=== PATIENT | male | born 1945 | race Caucasian/White ===

== ENCOUNTER 2021-01-04 13:56 | Inpatient (IN) | payer MEDICARE, SELFPAY ==
[2021-01-04] VITALS (29 sets, daily range): BP systolic 101–187; BP diastolic 58–97; PULSE 73–118; RESP 11–61; TEMP 37.4–37.7; O2SAT 52–100; BMI 35.5; BMI 35.9
[2021-01-04] MEDS: Etomidate 20 MG/10 ML Vial 30 MG IV (14:14)
[2021-01-04] MEDS: 0.9% Normal Saline 1,000 ML 125 ML IV (14:14)
--- NOTE | 2021-01-04 14:23 | EKG12_ITS ---
Test Reason : SOB Blood Pressure : / mmHG Vent. Rate : 119 BPM Atrial Rate : 119 BPM P-R Int : 162 ms QRS Dur : 088 ms QT Int : 312 ms P-R-T Axes : 047 -12 067 degrees QTc Int : 438 ms Sinus tachycardia Otherwise normal ECG Confirmed by SIDNEY SHANNON, HASEEB ([id number]), lead systems engineer STUART CASTILLO ([id number]) on 01/08/2021 10:48:11 AM Referred By: KAREN Confirmed By:HASEEB LITTLE MD
--- NOTE | 2021-01-04 14:26 | ED.DCSUM_ITS ---
History of Present Illness Chief Complaint: Shortness of Breath Informant: Patient, Family Narrative: 75-year-old male presenting with acute respiratory distress. Patient was reportedly exposed to Covid on 24 December. Over the past several days he has had shortness of breath but today is significantly worse. He denies any other symptoms including fever diarrhea vomiting etc. Family notes a history of diabetes and hypercholesterolemia. Family tells me he takes Metformin and a statin. No known lung conditions though he is a former smoker. Patient was noted to have oxygen saturations in the 50 during triage. Past Medical History - Allergies and Home Meds Allergies/Adverse Reactions: Allergies No Known Allergies Allergy (Verified 01/04/21 14:00) Primary Care Physician: Lisandro Ashley MD [Primary Care Provider] - Past Medical History: - - Diabetes hypercholesterolemia chronic bronchitis Surgical History: - - Colonoscopy Smoking Status: Former smoker Drugs: None Review of Systems General: Denies: Chills, Fever, Sweats Eyes: Denies: Visual changes - bilaterally, Diplopia ENT: Denies: Rhinorrhea, Sore throat Cardiovascular: Denies: Chest pain, Palpitations Respiratory: Reports: Dyspnea, Cough. Denies: Dyspnea on exertion Gastrointestinal: Denies: Abdominal pain, Nausea, Vomiting, Diarrhea, Melena, Hematochezia Genitourinary: Denies: Dysuria, Hematuria, Frequency Musculoskeletal: Denies: Back pain, Extremity Pain Skin: Denies: Rash, Wounds Neurological: Denies: Headache, Weakness, Numbness Physical Exam Vital Signs/Narrative: Vital Signs Temp Pulse Resp BP Pulse Ox 01/04/21 14:02 81 01/04/21 14:01 187/97 H 01/04/21 13:57 99.3 F H 108 H 61 H 52 Inital Vital Signs reviewed: Yes General: Well nourished, Well developed, Obese, Acute Distress - Cute respiratory failure Head: Normocephalic, Atraumatic Eyes: Perrl, EOMI ENT: Moist mucous membranes, No rhinorrhea Neck: Supple, Nontender Cardiovascular: Regular rate, Regular rhythm, No murmurs Respiratory: CTA bilaterally, Chest nontender, Retractions Abdomen: Soft, Nontender, Nondistended, Normal bowel sounds Back: Nontender, Normal Inspection Extremities: Nontender, No edema Skin: Normal color, No rash Neurological: Alert, Oriented x3, Cranial nerves II-XII grossly intact, Normal Strength, Normal Sensation Diagnostic/Tx/Re-eval Clinical Impression(s) from Imaging Studies Chest X-Ray 01/04/21 14:45 IMPRESSION: Bilateral diffuse pulmonary infiltrates worse in the mid and lower lung regions. The tip of the endotracheal tube is at 6.3 cm proximal to the darrick. The tip of the enteric tube is in the body of the stomach. Electronically Signed: Dustin Antonio MD at 15:06 EST , Service support , Chest CTA 01/04/21 14:58 IMPRESSION: COPD and ASHD with superimposed pulmonary edema and bilateral effusions. Cannot definitively exclude coexisting Covid 19 pneumonia Limited visualization of the distal subsegmental vessels without definitive evidence for pulmonary emboli If strong clinical suspicion for pulmonary embolus DOPPLER scan of the deep venous system of lower extremities recommended Electronically Signed: Pelon Yip MD at 16:29 EST , Service support , Laboratory Last Values WBC 7.1 K/mm3 (4.4-11.0) 01/04/21 14:05 RBC 5.28 M/mm3 (4.6-6.2) 01/04/21 14:05 Hgb 16.1 g/dL (13.0-16.5) 01/04/21 14:05 Hct 49.3 % (40-54) 01/04/21 14:05 MCV 93.4 fL (80-94) 01/04/21 14:05 MCH 30.5 pg (27.0-32.0) 01/04/21 14:05 MCHC 32.7 g/dL (32-36) 01/04/21 14:05 RDW Std Deviation 50.5 fl (35.1-43.9) H 01/04/21 14:05 RDW Coeff of Paul 14.6 % (11.6-14.6) 01/04/21 14:05 Plt Count 193 K/mm3 (150-450) 01/04/21 14:05 MPV 9.8 fl (6.2-12.0) 01/04/21 14:05 Immature Gran % (Auto) 1.400 % (0.0-0.9) H 01/04/21 14:05 Neut % (Auto) 81.8 % (47-70) H 01/04/21 14:05 Lymph % (Auto) 8.0 % (19-41) L 01/04/21 14:05 Tyrrell % (Auto) 8.4 % (0-10) 01/04/21 14:05 Eos % (Auto) 0.0 % (0-5) 01/04/21 14:05 Baso % (Auto) 0.4 % (0-1) 01/04/21 14:05 Absolute Neuts (auto) 5.8 X10^3/uL (2.0-7.7) 01/04/21 14:05 Absolute Lymphs (auto) 0.57 X10^3/uL (0.83-4.51) L 01/04/21 14:05 Nucleated RBC % 0 % (0-5) 01/04/21 14:05 Differential Comment SCANNED 01/04/21 14:05 Fibrinogen 600 mg/dl (203-444) H 01/04/21 14:05 D-Dimer Quant (PE/DVT) 7.90 FEU/ug/m (0.27-0.49) H* 01/04/21 14:05 Specimen Type ART 01/04/21 15:12 Sample Site R Radial 01/04/21 15:12 pH 7.24 (7.35-7.45) L 01/04/21 15:12 Bicarbonate Actual 20.7 mmol/L (22-26) L 01/04/21 15:12 Total CO2 22 mmol/L 01/04/21 15:12 Base Excess -7 mmol/L (-2 to +2) L 01/04/21 15:12 O2 Saturation 94 % (95-99) L 01/04/21 15:12 O2 % 100 01/04/21 15:12 ABG pCO2 48.7 mmHg (35-45) H 01/04/21 15:12 ABG pO2 86 mmHG (75-100) 01/04/21 15:12 Fran Test Positive 01/04/21 15:12 Respiration Rate 14 01/04/21 15:12 O2 Delivery Device Adult Vent 01/04/21 15:12 Vent Mode AC 01/04/21 15:12 Tidal Volume 500 01/04/21 15:12 POC PEEP 8 01/04/21 15:12 Sodium 139 mmol/L (136-145) 01/04/21 14:05 Potassium 3.5 mmol/L (3.5-5.1) 01/04/21 14:05 Chloride 106 mmol/L (98-107) 01/04/21 14:05 Carbon Dioxide 19.0 mmol/L (21.0-32.0) L 01/04/21 14:05 Anion Gap 14 (5-15) 01/04/21 14:05 BUN 23 mg/dL (7-18) H 01/04/21 14:05 Creatinine 1.18 mg/dL (0.70-1.30) 01/04/21 14:05 Estim Creat Clear Calc 55.85 ml/min 01/04/21 14:05 Est GFR (MDRD) Af Amer 77 mL/min (>60) 01/04/21 14:05 Est GFR (MDRD) Non-Af 64 mL/min (>60) 01/04/21 14:05 BUN/Creatinine Ratio 19.5 RATIO (10-20) 01/04/21 14:05 Glucose 220 mg/dL (74-106) H 01/04/21 14:05 Lactic Acid 9.8 mmol/L (0.4-1.9) H* 01/04/21 14:05 Calcium 8.5 mg/dL (8.5-10.1) 01/04/21 14:05 Total Bilirubin 1.20 mg/dL (0.20-1.00) H 01/04/21 14:05 AST 88 U/L (15-37) H 01/04/21 14:05 ALT 44 U/L (16-61) 01/04/21 14:05 Alkaline Phosphatase 134 U/L (45-117) H 01/04/21 14:05 Lactate Dehydrogenase 518 U/L (87-241) H 01/04/21 14:05 Total Creatine Kinase 318 U/L (39-308) H 01/04/21 14:05 Troponin I 0.045 ng/mL (<0.045) 01/04/21 14:05 C-React Prot Ext Range 87.30 mg/L (0.0-3.0) H 01/04/21 14:05 B-Natriuretic Peptide 273.8 pg/mL (0-100) H 01/04/21 14:05 Total Protein 7.2 g/dL (6.4-8.2) 01/04/21 14:05 Albumin 2.9 g/dL (3.2-5.0) L 01/04/21 14:05 Globulin 4.3 g/dL (2.2-4.2) H 01/04/21 14:05 Albumin/Globulin Ratio 0.7 RATIO (0.9-2.4) L 01/04/21 14:05 Procalcitonin 0.23 ng/mL (0.00-0.09) H 01/04/21 14:05 Urine Color Yellow (Yellow) 01/04/21 16:18 Urine Clarity Clear (Clear) 01/04/21 16:18 Urine pH 5.0 (5.0 - 8.0) 01/04/21 16:18 Ur Specific [place] 1.025 (1.002-1.030) 01/04/21 16:18 Urine Protein 100 mg/dl (Negative) H 01/04/21 16:18 Urine Glucose (UA) 100 mg/dl (Normal) H 01/04/21 16:18 Urine Ketones 15 mg/dl (Negative) H 01/04/21 16:18 Urine Occult Blood 250 /ul (Negative) H 01/04/21 16:18 Urine Nitrite Negative (Negative) 01/04/21 16:18 Urine Bilirubin Negative mg/dL (Negative) 01/04/21 16:18 Urine Urobilinogen 1 mg/dl (Normal) H 01/04/21 16:18 Ur Leukocyte Esterase Negative /ul (Negative) 01/04/21 16:18 Urine RBC 0-5 SEEN /hpf (0-5) 01/04/21 16:18 Urine WBC 0 SEEN /hpf (0-5) 01/04/21 16:18 Ur Squamous Epith Cells 0-5 SEEN /hpf (0-5) 01/04/21 16:18 Urine Bacteria 0 SEEN /hpf (None Seen) 01/04/21 16:18 Hyaline Casts 0-5 SEEN /lpf (0-5) 01/04/21 16:18 Urine Mucus 0 SEEN /hpf (<or=2+) 01/04/21 16:18 - EKG Initial EKG Interpretation: Sinus Tachycardia - EKG demonstrates a sinus tachycardia at a rate of 119. No ectopy or ST elevation noted. - Medical Decision Making BiPAP was attempted but the patient's respiratory rate increased from the 40s to the 60s. He stated that he was becoming tired. Decision to intubate him was made. Patient received 30 mg of etomidate 120 mg of succinylcholine. A 8-0 endotracheal tube was placed and secured at 23 cm. This was obtained on the first attempt without any difficulty. Bilateral breath sounds color change with fogging of the tube noted. Patient was initially started on a propofol drip for sedation. Patient has been actually hypertensive while on propofol drip. We did advance the endotracheal tube 2 cm. Patient is Covid positive. No obvious pulmonary embolism seen on the CTA. The patient will be placed on a heparin drip. I will give him Rocephin and azithromycin given the severity of his illness. He also received a dose of Decadron. Fiberglass Technician Dr. Ascencio was contacted who will be seeing the patient in the ICU. Hospitalist Dr. Hernandezs was also notified of the admission. Family updated. - Critical Care Time Critical care time (excluding procedures): 30-74 minutes, Discussing w/Patient &/or Family/Branch Specialist, Discussing w/Consultants, Arranging Admission or Transfer, Performing Direct Patient Care at Bedside ED Disposition - Plan for ED Patient: Disposition: Acute Care Hospital [facility] Diagnosis: Acute hypoxemic respiratory failure, Metabolic acidosis, Airway intubation performed without difficulty, COVID-19, ARDS (adult respiratory distress syndrome) Referrals: Lisandro Ashley MD [Primary Care Provider] -
[2021-01-04] MEDS: Rocuronium Bromide 50 MG/5 ML Vial IV (14:34)
[2021-01-04] MEDS: Propofol 200 MG/20 ML Vial 100 MG IV BOLUS (14:34)
[2021-01-04] MEDS: Propofol 10MG/Ml 1,000 MG/100 ML Bottle 6.7 MG CONT INF (14:34)
[2021-01-04 14:38] LABS: Absolute Lymphocyte Count 0.57 X10^3/uL (0.83-4.51); Absolute Neutrophil Count 5.8 X10^3/uL (2.0-7.7); Basophil# 0.03 X10^3/uL; Basophil% 0.4 % (0-1); Hematocrit 49.3 % (40-54); Hemoglobin 16.1 g/dL (13.0-16.5); Lymphocyte # 0.57 X10^3/ul (4.0); Mean Corp Hgb Conc 32.7 g/dL (32-36); Mean Corpuscular Hgb 30.5 pg (27.0-32.0); Mean Corpuscular Volume 93.4 fL (80-94); Mean Platelet Vol. 9.8 fl (6.2-12.0); Monocyte% 8.4 % (0-10); NRBC Flagged by Analyzer 0 % (0-5); Neutrophil # 5.81 X10^3/uL (2.7-7.7); Neutrophil % 81.8 % (47-70); POSITIVE DIFFERENTIAL YES; Platelet Count 193 K/mm3 (150-450); RBC Distribution Width CV 14.6 % (11.6-14.6); RBC Distribution Width SD 50.5 fl (35.1-43.9); Red Blood Count 5.28 M/mm3 (4.6-6.2); White Blood Count 7.1 K/mm3 (4.4-11.0)
[2021-01-04 14:40] LABS: Differential Indicated SCAN CRITERIA MET
[2021-01-04 14:44] LABS: Fibrinogen 600 mg/dl (203-444)
--- NOTE | 2021-01-04 14:45 | RAD_ITS ---
STUDY: X-RAY CHEST REASON FOR EXAM: Male, 75 years old. Sob, covid exposure, ET placement, intubation. TECHNIQUE: Single AP portable view of the chest. COMPARISON: None. FINDINGS: An endotracheal tube is in situ. The tip is at 6.3 cm proximal to the darrick. An enteric tube is seen with the tip in the body of the stomach. EKG electrodes are seen. Bilateral pulmonary infiltrates worse in both lower lobes and midportion of both lungs. There is no demonstrated pleural abnormality. Normal size heart. Normal mediastinum and odilon. Normal visualized pulmonary arteries. There is atherosclerotic calcification of the aortic arch with tortuosity. There are diffuse degenerative changes of the visualized thoracic spine. Normal visualized ribs, clavicles, and shoulders. There is no demonstrated abnormality of the visualized soft tissue structures of the upper abdomen. RAD/Chest 1 View (Portable) IMPRESSION: Bilateral diffuse pulmonary infiltrates worse in the mid and lower lung regions. The tip of the endotracheal tube is at 6.3 cm proximal to the darrick. The tip of the enteric tube is in the body of the stomach. Electronically Signed: Dustin Antonio MD at 15:06 EST , Service support ,
[2021-01-04 14:53] LABS: ALB/GLOB Ratio 0.7 RATIO (0.9-2.4); AST(SGOT) 88 U/L (15-37); Alanine Aminotransfer ALT/SGPT 44 U/L (16-61); Albumin, Serum 2.9 g/dL (3.2-5.0); Alkaline Phosphatase 134 U/L (45-117); Anion Gap 14 (5-15); BUN 23 mg/dL (7-18); BUN/Creat Ratio 19.5 RATIO (10-20); CPK Total, Creatine Kinase 318 U/L (39-308); Calcium,Total 8.5 mg/dL (8.5-10.1); Chloride 106 mmol/L (98-107); Creatinine, Serum 1.18 mg/dL (0.70-1.30); EST Glomerular Filtration Rate 64 mL/min (>60); Est Glom Filt Rate - Afr Amer 77 mL/min (>60); Estimated Creatinine Clearance 55.85 ml/min; Globulin 4.3 g/dL (2.2-4.2); Glucose 220 mg/dL (74-106); LDH 518 U/L (87-241); Potassium 3.5 mmol/L (3.5-5.1); Protein, Total 7.2 g/dL (6.4-8.2); Sodium Level 139 mmol/L (136-145)
[2021-01-04 14:58] LABS: BNP,B-Type NATRIURETIC PEPTIDE 273.8 pg/mL (0-100)
--- NOTE | 2021-01-04 14:58 | CT_ITS ---
STUDY: CTA CHEST REASON FOR EXAM: Male, 75 years old. Hypoxemia, SOB, covid exposure, patient intubated, former smoker. RADIATION DOSAGE (If Supplied By Facility): CTDIvol = ( 17.62 ) mGy, DLP = ( 709.17 ) mGycm TECHNIQUE: The examination was performed with the intravenous administration of 100mL Isovue 370. Post-processing of the angiographic images was performed, with multiplanar reformation and 3D reconstruction. Individualized dose optimization techniques were used for this CT. COMPARISON: None. FINDINGS: Pulmonary arteries are dilated consistent with pulmonary hypertension.. The central pulmonary arteries, interlobar and proximal to mid subsegmental vessels are fairly well opacified without evidence for central clot. The more distal subsegmental vessels are not well visualized in part due to obscuration by the airspace consolidation in the lower lobes Mild atherosclerotic changes of the aorta without evidence for aneurysm. There is no demonstrated aortic dissection. The heart is enlarged. Subcentimeter mediastinal nodes likely of no significance. Normal hilar regions. Normal visualized trachea and bronchi. The lungs are well expanded. Diffuse interstitial thickening and emphysematous changes are noted.. There are moderate-sized pleural effusions and consolidation of the lower lobes with air bronchograms. Normal chest wall structures. Dorsal spine demonstrates degenerative change. There is mild ascites in the right upper quadrant. Gallbladder has been removed. Nasogastric tube is seen with tip in stomach. CT/CTA Chest W/WO Contrast IMPRESSION: COPD and ASHD with superimposed pulmonary edema and bilateral effusions. Cannot definitively exclude coexisting Covid 19 pneumonia Limited visualization of the distal subsegmental vessels without definitive evidence for pulmonary emboli If strong clinical suspicion for pulmonary embolus DOPPLER scan of the deep venous system of lower extremities recommended Electronically Signed: Pelon Yip MD at 16:29 EST , Service support ,
[2021-01-04 14:59] LABS: Procalcitonin 0.23 ng/mL (0.00-0.09)
[2021-01-04 15:00] LABS: Differential Comment SCANNED
[2021-01-04 15:03] LABS: Lactic Acid 9.8 mmol/L (0.4-1.9)
[2021-01-04 15:21] LABS: Allen Test Positive; Base Excess -7 mmol/L (-2 to +2); Bicarbonate 20.7 mmol/L (22-26); Blood Gas Specimen Type ART; FI02 100; Mode AC; O2 Delivery Device Adult Vent; PEEP 8; PO2 86 mmHG (75-100); RR 14; SITE R Radial; SO2 94 % (95-99); Total Carbon Dioxide 22 mmol/L; Vt 500; pCO2 48.7 mmHg (35-45); pH 7.24 (7.35-7.45)
--- NOTE | 2021-01-04 15:57 | CHAPLAIN ---
Type of Pastoral Visit ___ Initial Visit ___ Follow-up Visit ___ On-call Visit ___ General Patient Visit ___ Spiritual Assessment ___ Family Conference ___ Bereavement ___ Rapid Response ___ Code Blue _x__ Other (describe below) Pastoral Care Referral From ___ Patient _x__ Family _x__ Nurse ___ Physician ___ Brand Attendant ___ Bottle House Pumper ___ Other (describe below) Sacrament/Intervention _x__ Active listening ___ Anointing ___ Yarsani ___ Bereavement ___ Communion ___ Rachana exploration ___ _x__ Life review _x__ Prayer ___ Reconciliation ___ Sacrament of Sick _x__ Supportive presence ___ Wedding ___ Other (describe below) Pastoral Comments during rounds in ED this patient was identified as needing intubation and staff indicated desire of support for spouse; escorted spouse to waiting area where support and conversation continued; assisted spouse with practical needs of water, etc. and became 'eyes' on patient room for time when spouse could return to room; offer of support was followed by request for prayer for patient; once patient and spouse reunited in room, this marketing manager continued with rounds
[2021-01-04] MEDS: dexAMETHasone 10 MG/ML Vial 6 MG IV (16:14)
[2021-01-04 16:35] LABS: Bacteria 0 SEEN /hpf (None Seen); Mucous, Urine 0 SEEN /hpf (<or=2+); White Blood Cells 0 SEEN /hpf (0-5)
[2021-01-04 16:41] LABS: Color, Urine Yellow (Yellow); Glucose, Dipstick 100 mg/dl (Normal); Ketone-Dipstick 15 mg/dl (Negative); Leukocyte Esterase-Dipstick Negative /ul (Negative); Nitrite-Dipstick Negative (Negative); Occult Blood-Urine 250 /ul (Negative); Protein-Dipstick 100 mg/dl (Negative); Specific Gravity, Urine 1.025 (1.002-1.030); Urine Bilirubin Dipstick Negative (Negative); Urine Clarity Clear (Clear); Urine Urobilinogen 1 mg/dl (Normal)
[2021-01-04 16:53] LABS: Hyaline Cast 0-5 SEEN /lpf (0-5); Red Blood Cells-Urine 0-5 SEEN /hpf (0-5); Squamous Epithelial Cells - UA 0-5 SEEN /hpf (0-5)
[2021-01-04] MEDS: Ceftriaxone 1 GM/50 ML BAG IV (17:56)
[2021-01-04 18:24] LABS: Partial Thromboplast Time 31.3 Seconds (24.1-36.2)
[2021-01-04 18:33] LABS: Reflex Lactate? Y
[2021-01-04] MEDS: Propofol 10MG/Ml 1,000 MG/100 ML Bottle 13.7 MG CONT INF ×2 (19:00→22:05)
--- NOTE | 2021-01-04 19:15 | NURSING ---
Came onto shift and when checking drips Fentanyl was at 100mcg/hr and Propofol was at 20mcg/kg/min. Noted that there wasn't a titration done on the JAN that showed when the Fentanyl was increased.
[2021-01-04] MEDS: Chlorhexidine 15 ML PO (20:09)
[2021-01-04] MEDS: Heparin Injection (Vial) 5,000 UNIT/ML VIAL 8000 UNIT IV (20:17)
[2021-01-04] MEDS: HEPARIN/D5w 25,000 UNITS 25,000 UNITS/250 ML IV.SOLN. 15 UNITS IV (20:20)
[2021-01-04 20:29] LABS: International Normalized Ratio 1.2; Prothrombin Time (Protime)PT. 14.2 SECONDS (11.7-14.9)
[2021-01-04 20:48] LABS: Lactic Acid 2.9 mmol/L (0.4-1.9)
--- NOTE | 2021-01-04 20:59 | PCM.HP.STD ---
History of Present Illness Date of Admission: 01/04/21 Chief Complaint: Shortness of breath The patient is a 75 year old M with a PMH as below who presented to the ER with shortness of breath. At the time of my examination he had already been intubated and sedated. Based on chart review and discussion with the ED physician, he is presenting with acute respiratory distress and was exposed to Covid on December 24. He tested positive today for Covid but had symptoms starting around December 26. On presentation to the ED he was found to be tachycardic as well as tachypneic to 61 and had an oxygen saturation of 52% on room air. He was transitioned to BiPAP however was indicating that he was getting tired and therefore the decision was made to intubate and transfer to the ICU. Past Medical History Allergies No Known Allergies Allergy (Verified 01/04/21 14:00) Home Medications: Ambulatory Orders Medication Instructions Recorded Ferrous Sulfate 325 mg PO DAILY 01/04/21 Metformin HCl 500 mg PO BID 01/04/21 Montelukast Sodium [Singulair] 10 mg PO DAILY 01/04/21 Pravastatin Sodium 40 mg PO QHS 01/04/21 Surgical History: - - Colonoscopy Smoking Status: Former smoker Tobacco Use: Cigarettes Alcohol: None Drugs: None - *Family History Paternal History Items: - - Unable to obtain secondary to intubation Review of Systems Unable to obtain accurate/complete ROS d/t: Intubation and sedation VTE Information - Inpt Only VTE Present on Admission: No Patient Problems: Active and Suspected Problems Metabolic acidosis (Acute) Airway intubation performed without difficulty (Acute) COVID-19 (Acute) ARDS (adult respiratory distress syndrome) (Acute) - Physical Exam Vitals/I&O's: Vital Signs Temp Pulse Resp BP Pulse Ox 99.9 F H 87 24 H 105/68 93 01/04/21 20:00 01/04/21 20:00 01/04/21 20:00 01/04/21 20:00 01/04/21 20:00 Oxygen Flow Rate (L/min) 4 Oxygen Delivery Method Mechanical Ventilator Weight: 250 lb 14.177 oz Body Mass Index (BMI) 35.9 Intake and Output for Last 24 Hours 01/02/21 01/03/21 01/04/21 23:59 23:59 23:59 Intake Total 358.30 / 358.30 Output Total 200 / 200 Balance 158.30 / 158.30 General: - - Intubated and sedated HEENT: Atraumatic, PERRLA, Normocephalic Oral: Dry Mucosa Neck: Supple, No JVD Lungs: Normal air movement, No rhonchi, No wheeze, No rales, Diminished Cardiovascular: Regular rate, Regular Rhythm, Normal S1, Normal S2, No murmurs Abdomen: Soft, Non Tender, Non-Distended, No Hepato-splenomegaly Extremities: No edema, Capillary Refill Less than 3 Seconds Skin: No rashes, No breakdown Neurological: - - Intubated and sedated Psych/Mental Status: - - Intubated and sedated Microbiology Past 72 Hours 01/04/21 14:54 Mucosa - Nose SARS-CoV-2 Antigen (Rapid) - Final SARS-CoV-2 (COVID 19) Laboratory Results 01/04/21 14:05: Fibrinogen 600 H, D-Dimer Quant (PE/DVT) 7.90 H* 01/04/21 14:05: Sodium 139, Potassium 3.5, Chloride 106, Carbon Dioxide 19.0 L, Anion Gap 14, BUN 23 H, Creatinine 1.18, Estim Creat Clear Calc 55.85, Est GFR (MDRD) Af Amer 77, Est GFR (MDRD) Non-Af 64, BUN/Creatinine Ratio 19.5, Glucose 220 H, Calcium 8.5, Total Bilirubin 1.20 H, AST 88 H, ALT 44, Alkaline Phosphatase 134 H, Lactate Dehydrogenase 518 H, Total Creatine Kinase 318 H, Troponin I 0.045, C-React Prot Ext Range 87.30 H, Total Protein 7.2, Albumin 2.9 L, Globulin 4.3 H, Albumin/Globulin Ratio 0.7 L 01/04/21 14:05: B-Natriuretic Peptide 273.8 H 01/04/21 14:05: Procalcitonin 0.23 H 01/04/21 14:05: WBC 7.1, RBC 5.28, Hgb 16.1, Hct 49.3, MCV 93.4, MCH 30.5, MCHC 32.7, RDW Std Deviation 50.5 H, RDW Coeff of Paul 14.6, Plt Count 193, MPV 9.8, Immature Gran % (Auto) 1.400 H, Neut % (Auto) 81.8 H, Lymph % (Auto) 8.0 L, [place] % (Auto) 8.4, Eos % (Auto) 0.0, Baso % (Auto) 0.4, Absolute Neuts (auto) 5.8, Absolute Lymphs (auto) 0.57 L, Nucleated RBC % 0, Differential Comment SCANNED 01/04/21 14:05: Lactic Acid 9.8 H* 01/04/21 14:05: APTT 31.3 01/04/21 14:05: Triglycerides Pending 01/04/21 15:12: Specimen Type ART, Sample Site R Radial, pH 7.24 L, Bicarbonate Actual 20.7 L, Total CO2 22, Base Excess -7 L, O2 Saturation 94 L, O2 % 100, ABG pCO2 48.7 H, ABG pO2 86, Fran Test Positive, Respiration Rate 14, O2 Delivery Device Adult Vent, Vent Mode AC, Tidal Volume 500, POC PEEP 8 01/04/21 16:18: Urine Color Yellow, Urine Clarity Clear, Urine pH 5.0, Ur Specific [place] 1.025, Urine Protein 100 H, Urine Glucose (UA) 100 H, Urine Ketones 15 H, Urine Occult Blood 250 H, Urine Nitrite Negative, Urine Bilirubin Negative, Urine Urobilinogen 1 H, Ur Leukocyte Esterase Negative, Urine RBC 0-5 SEEN, Urine WBC 0 SEEN, Ur Squamous Epith Cells 0-5 SEEN, Urine Bacteria 0 SEEN, Hyaline Casts 0-5 SEEN, Urine Mucus 0 SEEN 01/04/21 20:00: Lactic Acid 2.9 H* 01/04/21 20:00: PT 14.2, INR 1.2 Current Medications Acetaminophen (Acetaminophen 325 Mg Tablet) 650 mg PO Q6H PRN PRN PRN Reason: Pain Score 1-10/Temp > 100.7 F Chlorhexidine Gluconate (Chlorhexidine 15 Ml) 15 ml PO BID SIMONE Last Admin: 01/04/21 20:09 Dose: 15 ml Documented by: Chlorhexidine Gluconate (Chlorhexidine Gluc 2% Cloth 1 Each Towelette) 1 each TOPICAL DAILY SIMONE Dexamethasone Sodium Phosphate (Dexamethasone 10 Mg/Ml Vial) 6 mg IV DAILY SIMONE Dextrose (Dextrose 50%-Water 25 Gm/50 Ml Disp.Syrin) 0 gm IV X1 PRN; Protocol PRN Reason: Hypoglycemia Glucagon (Glucagon 1 Mg/Ml Syringe) 1 mg IM .X1 PRN PRN Reason: Hypoglycemia Heparin Sodium (Porcine) (Heparin Injection (Vial) 5,000 Unit/Ml Vial) 0 unit IV UD PRN; Protocol PRN Reason: dose adjustment Fentanyl Citrate 1,000 mcg/ (Sodium Chloride) 100 mls @ 5 mls/hr CONT INF .Q20H SIMONE; Protocol Last Titration: 01/04/21 20:00 Dose: 100 mcg/hr, 10 mls/hr Documented by: Heparin Sodium/Dextrose () 25,000 units in 250 mls @ 15 mls/hr IV .[id number] SIMONE; Protocol Last Admin: 01/04/21 20:20 Dose: 1,500 units/hr, 15 mls/hr Documented by: Remdesivir 200 mg/ Sodium (Chloride) 250 mls @ 125 mls/hr IV X1 ONE Stop: 01/04/21 21:59 Last Admin: 01/04/21 20:24 Dose: 125 mls/hr Documented by: Remdesivir 100 mg/ Sodium (Chloride) 250 mls @ 125 mls/hr IV DAILY@2200 SIMONE Stop: 01/13/21 23:59 Propofol (Diprivan) 1,000 mg in 100 mls @ 6.828 mls/hr CONT INF .Q12H SIMONE; Protocol Last Titration: 01/04/21 20:00 Dose: 20 mcg/kg/min, 13.7 mls/hr Documented by: Insulin Human Lispro (Insulin Lispro 100 Unit/Ml Insuln.Pen) 0 unit SC Q6 SIMONE; Protocol Sodium Chloride (0.9% Saline Lock 10 Ml Syringe) 10 - 40 ml IV UD PRN PRN Reason: SALINE FLUSH Assessment/Plan All Active Problems Acute hypoxemic respiratory failure (Acute) Metabolic acidosis (Acute) Airway intubation performed without difficulty (Acute) COVID-19 (Acute) ARDS (adult respiratory distress syndrome) (Acute) 1. Acute hypoxic respiratory failure secondary to acute COVID-19 pneumonia -We will continue with Decadron and remdesivir -We will closely monitor his LFTs as they are slightly elevated with an AST of 88 and normal ALT, renal function is okay at the moment -Lactic acid is down from 9.8-2.9 -LDH and total creatine kinase are both elevated as a CRP. -He also had an elevated D-dimer to 7.9, CT scan was inconclusive for segmental PEs, therefore given his elevated D-dimer will place on a heparin drip -Discontinue antibiotics he does not have a leukocytosis and he is lymphopenic consistent with Covid 2. DM 2 -He is on Metformin at home, will hold and place him on a sliding scale insulin -Anticipate needing to make adjustment secondary to his Decadron, Accu-Cheks AC at bedtime 3. Morbid obesity/hyperlipidemia -We will consult nutrition to have education once he is extubated -Continue with his pravastatin when able to take p.o. DVT: Heparin drip Inpatient E&M: 06332 Init Hosp L3
[2021-01-04 21:01] LABS: Triglycerides 137 mg/dL
--- NOTE | 2021-01-04 23:07 | RAD_ITS ---
STUDY: X-RAY CHEST REASON FOR EXAM: Male, 75 years old. REPOSITIONED ET TUBE TECHNIQUE: Frontal view COMPARISON: 01/04/2021 at 14:43 hours FINDINGS: Stable endotracheal and nasogastric tubes. The lungs are expanded. Bilateral interstitial prominence and patchy infiltrates similar to previous study. Normal size heart. Normal mediastinum and odilon. Normal visualized pulmonary arteries. Normal visualized aortic arch and descending thoracic aorta. Degenerative changes of the thoracic spine. Normal visualized ribs, clavicles, and shoulders. There is no demonstrated abnormality of the visualized soft tissue structures of the upper abdomen. RAD/Chest 1 View (Portable) IMPRESSION: Bilateral interstitial prominence and patchy infiltrates similar to previous study. Electronically Signed: Jon Gomez DO at 0:06 EST Tel [phone], Service support ,
[2021-01-05] VITALS (32 sets, daily range): BP systolic 102–153; BP diastolic 48–81; PULSE 61–85; RESP 14–32; TEMP 36.9–37.4; O2SAT 88–96; BMI 35.4
[2021-01-05] MEDS: Insulin Lispro 100 UNIT/ML INSULN.PEN SC ×3 (00:49→18:00)
[2021-01-05 01:00] LABS: Bedside Glucose 179 mg/dL (70-110)
[2021-01-05 02:41] LABS: Absolute Neutrophil Count 3.3 X10^3/uL (2.0-7.7); Hematocrit 41.7 % (40-54); Hemoglobin 13.6 g/dL (13.0-16.5); Lymphocyte % 7.9 % (19-41); Mean Corp Hgb Conc 32.6 g/dL (32-36); Mean Corpuscular Hgb 29.9 pg (27.0-32.0); Mean Corpuscular Volume 91.6 fL (80-94); Mean Platelet Vol. 9.8 fl (6.2-12.0); Monocyte% 5.3 % (0-10); NRBC Flagged by Analyzer 0 % (0-5); Neutrophil # 3.25 X10^3/uL (2.7-7.7); POSITIVE DIFFERENTIAL YES; Platelet Count 135 K/mm3 (150-450); RBC Distribution Width CV 14.7 % (11.6-14.6); RBC Distribution Width SD 49.6 fl (35.1-43.9); Red Blood Count 4.55 M/mm3 (4.6-6.2); White Blood Count 3.8 K/mm3 (4.4-11.0)
[2021-01-05 02:43] LABS: Differential Indicated SCAN CRITERIA MET
[2021-01-05 02:58] LABS: ALB/GLOB Ratio 0.7 RATIO (0.9-2.4); AST(SGOT) 55 U/L (15-37); Alanine Aminotransfer ALT/SGPT 32 U/L (16-61); Albumin, Serum 2.3 g/dL (3.2-5.0); Alkaline Phosphatase 90 U/L (45-117); Anion Gap 6 (5-15); BUN 22 mg/dL (7-18); BUN/Creat Ratio 29.5 RATIO (10-20); Calcium,Total 7.9 mg/dL (8.5-10.1); Chloride 111 mmol/L (98-107); Creatinine, Serum 0.75 mg/dL (0.70-1.30); EST Glomerular Filtration Rate 109 mL/min (>60); Est Glom Filt Rate - Afr Amer 131 mL/min (>60); Globulin 3.4 g/dL (2.2-4.2); Glucose 195 mg/dL (74-106); Potassium 4.2 mmol/L (3.5-5.1); Protein, Total 5.7 g/dL (6.4-8.2); Sodium Level 141 mmol/L (136-145)
[2021-01-05 03:00] LABS: Partial Thromboplast Time 221.1 Seconds (24.1-36.2)
[2021-01-05] MEDS: Propofol 10MG/Ml 1,000 MG/100 ML Bottle 6.8 MG CONT INF (05:20)
[2021-01-05 05:35] LABS: Bedside Glucose 160 mg/dL (70-110)
[2021-01-05] MEDS: TITRATION PARAMETER CHANGE 1 EACH IV (05:43)
[2021-01-05] MEDS: Propofol 10MG/Ml 1,000 MG/100 ML Bottle 13.5 MG CONT INF (08:50)
--- NOTE | 2021-01-05 10:02 | CASEMGMT ---
RN CM NOTE: Participated in ICU rounds. Pt is intubated--FIO2 70%. on phone during rounds, tearful, and had many questions, which were answered by the multi-disciplinary team members. Initial RN CM assessment deferred at this time. Du BSN RN CM
--- NOTE | 2021-01-05 10:08 | NT.THERAPY_ITS ---
Nutrition Therapy Report - History Nutrition Services has been consulted to:: Manage enteral nutrition Current diet / nutrition support order:: NPO - Anthropometric Measurements Height:: 5 ft 10.08 in Weight:: 112.3 kg Body Mass Index (BMI):: 35.4 - Relevant Labs Relevant Labs:: WBC 3.8 K/mm3 (4.4-11.0) L 01/05/21 02:30 RBC 4.55 M/mm3 (4.6-6.2) L 01/05/21 02:30 RDW Std Deviation 49.6 fl (35.1-43.9) H 01/05/21 02:30 RDW Coeff of Paul 14.7 % (11.6-14.6) H 01/05/21 02:30 Plt Count 135 K/mm3 (150-450) L 01/05/21 02:30 Immature Gran % (Auto) 1.400 % (0.0-0.9) H 01/04/21 14:05 Neut % (Auto) 86.0 % (47-70) H 01/05/21 02:30 Lymph % (Auto) 7.9 % (19-41) L 01/05/21 02:30 Absolute Lymphs (auto) 0.30 X10^3/uL (0.83-4.51) L 01/05/21 02:30 APTT 221.1 Seconds (24.1-36.2) H* 01/05/21 02:30 Fibrinogen 600 mg/dl (203-444) H 01/04/21 14:05 D-Dimer Quant (PE/DVT) 7.90 FEU/ug/m (0.27-0.49) H* 01/04/21 14:05 Chloride 111 mmol/L (98-107) H 01/05/21 02:30 Carbon Dioxide 19.0 mmol/L (21.0-32.0) L 01/04/21 14:05 BUN 22 mg/dL (7-18) H 01/05/21 02:30 BUN/Creatinine Ratio 29.5 RATIO (10-20) H 01/05/21 02:30 Glucose 195 mg/dL (74-106) H 01/05/21 02:30 Lactic Acid 2.9 mmol/L (0.4-1.9) H* 01/04/21 20:00 Calcium 7.9 mg/dL (8.5-10.1) L 01/05/21 02:30 Total Bilirubin 1.20 mg/dL (0.20-1.00) H 01/04/21 14:05 AST 55 U/L (15-37) H 01/05/21 02:30 Alkaline Phosphatase 134 U/L (45-117) H 01/04/21 14:05 Lactate Dehydrogenase 518 U/L (87-241) H 01/04/21 14:05 Total Creatine Kinase 318 U/L (39-308) H 01/04/21 14:05 C-React Prot Ext Range 87.30 mg/L (0.0-3.0) H 01/04/21 14:05 B-Natriuretic Peptide 273.8 pg/mL (0-100) H 01/04/21 14:05 Total Protein 5.7 g/dL (6.4-8.2) L 01/05/21 02:30 Albumin 2.3 g/dL (3.2-5.0) L 01/05/21 02:30 Globulin 4.3 g/dL (2.2-4.2) H 01/04/21 14:05 Albumin/Globulin Ratio 0.7 RATIO (0.9-2.4) L 01/05/21 02:30 Procalcitonin 0.23 ng/mL (0.00-0.09) H 01/04/21 14:05 - Assessment Food / Nutrition-Related History:: Unknown intake TALENT DEVELOPMENT ANALYST- per H&P, pt reported symptoms started ~10 days ago, so predict suboptimal PO intake TALENT DEVELOPMENT ANALYST. No wt hx available at this time. Per mitali Armenta to initiate enteral nutrition support this date. - Nutrition Diagnosis Problem / Etiology / Signs & Symptoms (PES):: inadequate oral intake related to resp. failure, increased energy needs w/ acute illness as evidenced by NPO status, predicted suboptimal energy intake for 10 days TALENT DEVELOPMENT ANALYST. Evidence of Malnutrition Exists:: No - Nutrition Intervention Nutrition Prescription:: 8198-1916 calories/day (22-25 calories/kg IBW (75kg)). 130-160 g protein/day (2g/kg IBW). 1700mL fluid/day (1mL/calorie) - Food / Nutrient Delivery Interventions Summary of nutrition intervention:: will order enteral nutrition support Nutrition support ordered as / adjusted to:: Vital HP via OGT- goal rate of 70mL/hour w/ 50mL H2O flush every 4 hours to provide 1680 calories, 146 g protei n, and 1704mL total fluid/day. Recommend start at 25mL and increase by 15mL every 8-12 hours as pt tolerates until goal rate is achieved. - MNT Monitoring Further MNT monitoring and evaluation required?: Yes MNT Follow-up in:: 1-2 days
--- NOTE | 2021-01-05 10:15 | PCM.CON.CC ---
Problem List (1) Acute hypoxemic respiratory failure Status: Acute (2) Metabolic acidosis Status: Acute (3) COVID-19 Status: Acute (4) ARDS (adult respiratory distress syndrome) Status: Acute Reason for Consult Date of Consultation: 01/05/21 Reason for Consultation: Respiratory failure History of Present Illness: The patient is a 75 year old M, with past medical history of diabetes, hypercholesterolemia and chronic bronchitis, who presented to [facility] on 01/04/2021 secondary to progressive shortness of breath. Patient reportedly had been exposed to COVID-19 on December 24 and had progressively declined over the course of days. Patient had not had any other constitutional symptoms such as fever, chills, nausea or vomiting reported. Patient does have a history of diabetes, but does not check his blood sugars routinely. Patient is a former smoker, but does not carry a formal diagnosis of COPD. In triage, patient was noted to have saturations in the 50s and a temperature of 99.3 ?F. Patient was tachycardic at 108 bpm and tachypneic at 61 breaths/min. Patient did not respond to home BiPAP rescue chest x-ray and CTA were performed following intubation and showed bilateral infiltrates. Patient did have emphysematous changes noted on CTA of the chest. Peripheral vasculature was difficult to visualize. Laboratory work-up showed a white blood cell count of 7.1, hemoglobin of 16.1 and an elevated D-dimer of 7.9. Initial pH was noted to be 7.24 with a PCO2 of 48 and a P to F ratio of 86 was noted. Laboratory chemistries showed a metabolic acidosis with a creatinine of 1.2, glucose of 220 and elevated BNP at 273. CRP was elevated at 87. The patient was then transferred to the intensive care unit. Overnight, patient has required 70% FiO2 and 10 of PEEP to maintain saturations. Patient has not needed any pressors. Patient has been sedated and is unable to provide any additional information. Did speak with patient's this morning and she did confirm the patient has been a smoker, but is never formally been diagnosed with COPD. Patient does not use inhalers at baseline. Past Medical History Allergies No Known Allergies Allergy (Verified 01/04/21 14:00) Home Medications: Ambulatory Orders Medication Instructions Recorded Ferrous Sulfate 325 mg PO DAILY 01/04/21 Metformin HCl 500 mg PO BID 01/04/21 Montelukast Sodium [Singulair] 10 mg PO DAILY 01/04/21 Pravastatin Sodium 40 mg PO QHS 01/04/21 Surgical History: - - Colonoscopy Smoking Status: Former smoker Tobacco Use: Cigarettes Alcohol: None Drugs: None - *Family History Paternal History Items: - - Unable to obtain secondary to intubation Review of Systems Unable to obtain accurate/complete ROS d/t: Intubated, see HPI Patient Problems: Active and Suspected Problems Metabolic acidosis (Acute) Airway intubation performed without difficulty (Acute) COVID-19 (Acute) ARDS (adult respiratory distress syndrome) (Acute) Objective: All imaging was personally reviewed. Bilateral infiltrates noted on all imaging. Endotracheal tube is slightly high this morning, so it was advanced 1 cm. OG is in good position. Patient does not have any pulmonary function test or echocardiogram available for review - Physical Exam Vitals/I&O's: Vital Signs Temp Pulse Resp BP Pulse Ox 36.9 C 65 17 133/61 H 88 01/05/21 09:00 01/05/21 09:00 01/05/21 09:00 01/05/21 09:00 01/05/21 09:00 Oxygen Flow Rate (L/min) 4 Oxygen Delivery Method Mechanical Ventilator Weight: 112.3 kg Body Mass Index (BMI) 35.4 Intake and Output for Last 24 Hours 01/03/21 01/04/21 01/05/21 23:59 23:59 23:59 Intake Total 679.40 / 703.10 364.07 / 364.07 Output Total 350 / 500 560 / 560 Balance 329.40 / 203.10 -195.93 / -195.93 General: - - Intubated and sedated. RASS -2. Obese. HEENT: Atraumatic, PERRLA, EOMI, Normocephalic, - - No scleral icterus or injection noted Oral: Moist Mucosa, No Gingival or Mucosal Lesions/ Ulcerations Neck: Supple, No JVD, No Nodes, Trachea Midline Lungs: No rhonchi, No wheeze, No rales, Diminished Cardiovascular: Regular rate, Regular Rhythm, Normal S1, Normal S2, No murmurs, No rub noted, No Gallop Abdomen: Bowel Sounds Present, Soft, Non Tender, Non-Distended, Obese Extremities: No clubbing, No cyanosis, No edema, Capillary Refill Less than 3 Seconds Skin: No breakdown, Rash Present - Left forearm?maculopapular on the extensor surface Musculoskeletal: No Tenderness to Palpation of Joints or Extremities Lymphatic: No Cervical, Supraclavicular, or Inguinal Adenopathy Neurological: Cranial nerves II-XII grossly intact, Neuro grossly intact, Motor Exam 5/5 strength throughout Psych/Mental Status: Flat Affect Microbiology Past 72 Hours 01/04/21 14:54 Mucosa - Nose SARS-CoV-2 Antigen (Rapid) - Final SARS-CoV-2 (COVID 19) Laboratory Results 01/04/21 14:05: Fibrinogen 600 H, D-Dimer Quant (PE/DVT) 7.90 H* 01/04/21 14:05: Sodium 139, Potassium 3.5, Chloride 106, Carbon Dioxide 19.0 L, Anion Gap 14, BUN 23 H, Creatinine 1.18, Estim Creat Clear Calc 55.85, Est GFR (MDRD) Af Amer 77, Est GFR (MDRD) Non-Af 64, BUN/Creatinine Ratio 19.5, Glucose 220 H, Calcium 8.5, Total Bilirubin 1.20 H, AST 88 H, ALT 44, Alkaline Phosphatase 134 H, Lactate Dehydrogenase 518 H, Total Creatine Kinase 318 H, Troponin I 0.045, C-React Prot Ext Range 87.30 H, Total Protein 7.2, Albumin 2.9 L, Globulin 4.3 H, Albumin/Globulin Ratio 0.7 L 01/04/21 14:05: B-Natriuretic Peptide 273.8 H 01/04/21 14:05: Procalcitonin 0.23 H 01/04/21 14:05: WBC 7.1, RBC 5.28, Hgb 16.1, Hct 49.3, MCV 93.4, MCH 30.5, MCHC 32.7, RDW Std Deviation 50.5 H, RDW Coeff of Paul 14.6, Plt Count 193, MPV 9.8, Immature Gran % (Auto) 1.400 H, Neut % (Auto) 81.8 H, Lymph % (Auto) 8.0 L, [place] % (Auto) 8.4, Eos % (Auto) 0.0, Baso % (Auto) 0.4, Absolute Neuts (auto) 5.8, Absolute Lymphs (auto) 0.57 L, Nucleated RBC % 0, Differential Comment SCANNED 01/04/21 14:05: Lactic Acid 9.8 H* 01/04/21 14:05: APTT 31.3 01/04/21 14:05: Triglycerides 137 01/04/21 15:12: Specimen Type ART, Sample Site R Radial, pH 7.24 L, Bicarbonate Actual 20.7 L, Total CO2 22, Base Excess -7 L, O2 Saturation 94 L, O2 % 100, ABG pCO2 48.7 H, ABG pO2 86, Fran Test Positive, Respiration Rate 14, O2 Delivery Device Adult Vent, Vent Mode AC, Tidal Volume 500, POC PEEP 8 01/04/21 16:18: Urine Color Yellow, Urine Clarity Clear, Urine pH 5.0, Ur Specific [place] 1.025, Urine Protein 100 H, Urine Glucose (UA) 100 H, Urine Ketones 15 H, Urine Occult Blood 250 H, Urine Nitrite Negative, Urine Bilirubin Negative, Urine Urobilinogen 1 H, Ur Leukocyte Esterase Negative, Urine RBC 0-5 SEEN, Urine WBC 0 SEEN, Ur Squamous Epith Cells 0-5 SEEN, Urine Bacteria 0 SEEN, Hyaline Casts 0-5 SEEN, Urine Mucus 0 SEEN 01/04/21 20:00: Lactic Acid 2.9 H* 01/04/21 20:00: PT 14.2, INR 1.2 01/05/21 00:32: POC Glucose 179 H 01/05/21 02:30: WBC 3.8 L, RBC 4.55 L, Hgb 13.6, Hct 41.7, MCV 91.6, MCH 29.9, MCHC 32.6, RDW Std Deviation 49.6 H, RDW Coeff of Paul 14.7 H, Plt Count 135 L, MPV 9.8, Immature Gran % (Auto) 0.800, Neut % (Auto) 86.0 H, Lymph % (Auto) 7.9 L, [place] % (Auto) 5.3, Eos % (Auto) 0.0, Baso % (Auto) 0.0, Absolute Neuts (auto) 3.3, Absolute Lymphs (auto) 0.30 L, Nucleated RBC % 0, Diff Path Review March01/05/21 02:30: Sodium 141, Potassium 4.2, Chloride 111 H, Carbon Dioxide 24.0, Anion Gap 6, BUN 22 H, Creatinine 0.75, Estim Creat Clear Calc 65.90, Est GFR (MDRD) Af Amer 131, Est GFR (MDRD) Non-Af 109, BUN/Creatinine Ratio 29.5 H, Glucose 195 H, Calcium 7.9 L, Total Bilirubin 0.50, AST 55 H, ALT 32, Alkaline Phosphatase 90, Total Protein 5.7 L, Albumin 2.3 L, Globulin 3.4, Albumin/Globulin Ratio 0.7 L 01/05/21 02:30: APTT 221.1 H* 01/05/21 05:18: POC Glucose 160 H Current Medications Acetaminophen (Acetaminophen 325 Mg Tablet) 650 mg PO Q6H PRN PRN PRN Reason: Pain Score 1-10/Temp > 100.7 F Chlorhexidine Gluconate (Chlorhexidine 15 Ml) 15 ml PO BID SIMONE Last Admin: 01/04/21 20:09 Dose: 15 ml Documented by: Chlorhexidine Gluconate (Chlorhexidine Gluc 2% Cloth 1 Each Towelette) 1 each TOPICAL DAILY SIMONE Dexamethasone Sodium Phosphate (Dexamethasone 10 Mg/Ml Vial) 6 mg IV DAILY SIMONE Dextrose (Dextrose 50%-Water 25 Gm/50 Ml Disp.Syrin) 0 gm IV X1 PRN; Protocol PRN Reason: Hypoglycemia Famotidine (Famotidine 20 Mg Tablet) 20 mg GT BID SIMONE Glucagon (Glucagon 1 Mg/Ml Syringe) 1 mg IM .X1 PRN PRN Reason: Hypoglycemia Heparin Sodium (Porcine) (Heparin Injection (Vial) 5,000 Unit/Ml Vial) 0 unit IV UD PRN; Protocol PRN Reason: dose adjustment Fentanyl Citrate 1,000 mcg/ (Sodium Chloride) 100 mls @ 5 mls/hr CONT INF .Q20H [facility]; Protocol Last Titration: 01/05/21 09:00 Dose: 100 mcg/hr, 10 mls/hr Documented by: Heparin Sodium/Dextrose () 25,000 units in 250 mls @ 15 mls/hr IV .[id number] [facility]; Protocol Last Titration: 01/05/21 09:00 Dose: 1,200 units/hr, 12 mls/hr Documented by: Remdesivir 100 mg/ Sodium (Chloride) 250 mls @ 125 mls/hr IV DAILY@2200 SIMONE Stop: 01/13/21 23:59 Propofol (Diprivan) 1,000 mg in 100 mls @ 6.738 mls/hr CONT INF .Q12H [facility]; Protocol Last Titration: 01/05/21 09:30 Dose: 15 mcg/kg/min, 10.1 mls/hr Documented by: Enteral Nutritional Formula (Vital High Protein) 1,000 mls @ 70 mls/hr GT .[id number] [facility]ONE Insulin Human Lispro (Insulin Lispro 100 Unit/Ml Insuln.Pen) 0 unit SC Q6 [facility]; Protocol Last Admin: 01/05/21 05:26 Dose: 2 u Documented by: Sodium Chloride (0.9% Saline Lock 10 Ml Syringe) 10 - 40 ml IV UD PRN PRN Reason: SALINE FLUSH Clinical Impression(s) from Imaging Studies Chest X-Ray 01/04/21 14:45 IMPRESSION: Bilateral diffuse pulmonary infiltrates worse in the mid and lower lung regions. The tip of the endotracheal tube is at 6.3 cm proximal to the darrick. The tip of the enteric tube is in the body of the stomach. Electronically Signed: Dustin Antonio MD at 15:06 EST , Service support , Chest CTA 01/04/21 14:58 IMPRESSION: COPD and ASHD with superimposed pulmonary edema and bilateral effusions. Cannot definitively exclude coexisting Covid 19 pneumonia Limited visualization of the distal subsegmental vessels without definitive evidence for pulmonary emboli If strong clinical suspicion for pulmonary embolus DOPPLER scan of the deep venous system of lower extremities recommended Electronically Signed: Pelon Yip MD at 16:29 EST , Service support , Chest X-Ray 01/04/21 23:07 IMPRESSION: Bilateral interstitial prominence and patchy infiltrates similar to previous study. Electronically Signed: Jon Gomez DO at 0:06 EST Tel [phone], Service support , Assessment/Plan Active and Suspected Problems Metabolic acidosis (Acute) Airway intubation performed without difficulty (Acute) COVID-19 (Acute) ARDS (adult respiratory distress syndrome) (Acute) RECOMMENDATIONS: 1. Add GI prophylaxis 2. Initiate tube feeds 3. Wean PEEP and FiO2 as tolerated 4. Spontaneous breathing and awakening trials per protocol 5. Remdesivir per ID. Continue Decadron 6. Empiric antibiotics pending culture data IMPRESSIONS: 1. Acute hypoxic respiratory failure secondary to ARDS secondary to acute COVID-19 pneumonia Unclear how much of patient's current oxygen status is secondary to cor pulmonale given low presenting oxygen saturations. Continue to monitor saturations closely. Wean oxygen and PEEP as tolerated. Agree with Decadron. Remdesivir per infectious disease. Patient is on empiric antibiotics and anticoagulation for now pending culture data. Unclear patient severely elevated D-dimer is secondary to protracted hypoxia. Lactic acid appears to be responding to control of hypoxia. Continue to monitor liver function given remdesivir. 2. Probable COPD Patient was significant emphysematous changes noted on CT of the chest. This does complicate respiratory status. We will hold on any additional therapy as patient is currently on Decadron. Bronchodilators will be continued. Patient may require mucolytic therapy. 3. Diabetes mellitus type 2/morbid obesity/hyperlipidemia Complicates care, management, recovery and prognosis. Will need to watch patient closely for complications of Decadron therapy given history of diabetes. Okay to continue statin for now. Patient is a full code TIME: 45 minutes critical care time spent addressing patient's acute hypoxic respiratory failure, diabetes mellitus, review of all data and collaboration with care team (5:45 AM to 7:45 AM) 9xxxx: [id number] Critical care first hour
[2021-01-05] MEDS: Chlorhexidine 15 ML PO ×2 (11:11→22:39)
[2021-01-05] MEDS: dexAMETHasone 10 MG/ML Vial 6 MG IV (11:12)
[2021-01-05] MEDS: Famotidine 20 MG Tablet GT ×2 (11:12→22:39)
[2021-01-05] MEDS: CHLORHEXIDINE GLUC 2% CLOTH 1 EACH TOWELETTE TOPICAL (11:12)
[2021-01-05 11:45] LABS: Partial Thromboplast Time 53.7 Seconds (24.1-36.2)
[2021-01-05] MEDS: Heparin Injection (Vial) 5,000 UNIT/ML VIAL IV (11:51)
[2021-01-05 13:23] LABS: Pathologist Review Reviewed
--- NOTE | 2021-01-05 13:37 | PCM.PN.HOSP ---
Patient Problems: Active and Suspected Problems Acute hypoxemic respiratory failure (Acute) Metabolic acidosis (Acute) Airway intubation performed without difficulty (Acute) COVID-19 (Acute) ARDS (adult respiratory distress syndrome) (Acute) Subjective: On vent with 70% Fio2. Vitals/I&O's: Vital Signs Temp Pulse Resp BP Pulse Ox 37.1 C 66 23 H 112/48 L 90 01/05/21 12:00 01/05/21 12:00 01/05/21 12:00 01/05/21 12:00 01/05/21 12:00 Oxygen Flow Rate (L/min) 4 Oxygen Delivery Method Mechanical Ventilator Weight: 112.3 kg Body Mass Index (BMI) 35.4 Intake and Output for Last 24 Hours 01/03/21 01/04/21 01/05/21 23:59 23:59 23:59 Intake Total 679.40 / 703.10 515.34 / 515.34 Output Total 350 / 500 710 / 710 Balance 329.40 / 203.10 -194.66 / -194.66 General: No apparent distress, - - intubated and sedated. HEENT: Atraumatic, Normocephalic Oral: Moist Mucosa, No Gingival or Mucosal Lesions/ Ulcerations Neck: No Nodes, Thyroid Normal Size and Texture Lungs: Clear to auscultation, Normal air movement, No rhonchi, No wheeze Cardiovascular: Regular rate, Regular Rhythm, Normal S1, Normal S2 Abdomen: Bowel Sounds Present, Soft, Non Tender, Non-Distended Extremities: No Calf Tenderness, Edema Skin: No rashes, No breakdown Neurological: Deep Tendon Reflexes 2+/4 and Symmetrical, - - no clonus Psych/Mental Status: Normal Affect, Appropriate Microbiology Past 72 Hours 01/04/21 14:54 Mucosa - Nose SARS-CoV-2 Antigen (Rapid) - Final SARS-CoV-2 (COVID 19) Laboratory Results 01/04/21 14:05: Fibrinogen 600 H, D-Dimer Quant (PE/DVT) 7.90 H* 01/04/21 14:05: Sodium 139, Potassium 3.5, Chloride 106, Carbon Dioxide 19.0 L, Anion Gap 14, BUN 23 H, Creatinine 1.18, Estim Creat Clear Calc 55.85, Est GFR (MDRD) Af Amer 77, Est GFR (MDRD) Non-Af 64, BUN/Creatinine Ratio 19.5, Glucose 220 H, Calcium 8.5, Total Bilirubin 1.20 H, AST 88 H, ALT 44, Alkaline Phosphatase 134 H, Lactate Dehydrogenase 518 H, Total Creatine Kinase 318 H, Troponin I 0.045, C-React Prot Ext Range 87.30 H, Total Protein 7.2, Albumin 2.9 L, Globulin 4.3 H, Albumin/Globulin Ratio 0.7 L 01/04/21 14:05: B-Natriuretic Peptide 273.8 H 01/04/21 14:05: Procalcitonin 0.23 H 01/04/21 14:05: WBC 7.1, RBC 5.28, Hgb 16.1, Hct 49.3, MCV 93.4, MCH 30.5, MCHC 32.7, RDW Std Deviation 50.5 H, RDW Coeff of Paul 14.6, Plt Count 193, MPV 9.8, Immature Gran % (Auto) 1.400 H, Neut % (Auto) 81.8 H, Lymph % (Auto) 8.0 L, [place] % (Auto) 8.4, Eos % (Auto) 0.0, Baso % (Auto) 0.4, Absolute Neuts (auto) 5.8, Absolute Lymphs (auto) 0.57 L, Nucleated RBC % 0, Differential Comment SCANNED 01/04/21 14:05: Lactic Acid 9.8 H* 01/04/21 14:05: APTT 31.3 01/04/21 14:05: Triglycerides 137 01/04/21 15:12: Specimen Type ART, Sample Site R Radial, pH 7.24 L, Bicarbonate Actual 20.7 L, Total CO2 22, Base Excess -7 L, O2 Saturation 94 L, O2 % 100, ABG pCO2 48.7 H, ABG pO2 86, Fran Test Positive, Respiration Rate 14, O2 Delivery Device Adult Vent, Vent Mode AC, Tidal Volume 500, POC PEEP 8 01/04/21 16:18: Urine Color Yellow, Urine Clarity Clear, Urine pH 5.0, Ur Specific [place] 1.025, Urine Protein 100 H, Urine Glucose (UA) 100 H, Urine Ketones 15 H, Urine Occult Blood 250 H, Urine Nitrite Negative, Urine Bilirubin Negative, Urine Urobilinogen 1 H, Ur Leukocyte Esterase Negative, Urine RBC 0-5 SEEN, Urine WBC 0 SEEN, Ur Squamous Epith Cells 0-5 SEEN, Urine Bacteria 0 SEEN, Hyaline Casts 0-5 SEEN, Urine Mucus 0 SEEN 01/04/21 20:00: Lactic Acid 2.9 H* 01/04/21 20:00: PT 14.2, INR 1.2 01/05/21 00:32: POC Glucose 179 H 01/05/21 02:30: WBC 3.8 L, RBC 4.55 L, Hgb 13.6, Hct 41.7, MCV 91.6, MCH 29.9, MCHC 32.6, RDW Std Deviation 49.6 H, RDW Coeff of Paul 14.7 H, Plt Count 135 L, MPV 9.8, Immature Gran % (Auto) 0.800, Neut % (Auto) 86.0 H, Lymph % (Auto) 7.9 L, [place] % (Auto) 5.3, Eos % (Auto) 0.0, Baso % (Auto) 0.0, Absolute Neuts (auto) 3.3, Absolute Lymphs (auto) 0.30 L, Nucleated RBC % 0, Diff Path Review Reviewed 01/05/21 02:30: Sodium 141, Potassium 4.2, Chloride 111 H, Carbon Dioxide 24.0, Anion Gap 6, BUN 22 H, Creatinine 0.75, Estim Creat Clear Calc 65.90, Est GFR (MDRD) Af Amer 131, Est GFR (MDRD) Non-Af 109, BUN/Creatinine Ratio 29.5 H, Glucose 195 H, Calcium 7.9 L, Total Bilirubin 0.50, AST 55 H, ALT 32, Alkaline Phosphatase 90, Total Protein 5.7 L, Albumin 2.3 L, Globulin 3.4, Albumin/Globulin Ratio 0.7 L 01/05/21 02:30: APTT 221.1 H* 01/05/21 05:18: POC Glucose 160 H 01/05/21 11:25: APTT 53.7 H Current Medications Acetaminophen (Acetaminophen 325 Mg Tablet) 650 mg PO Q6H PRN PRN PRN Reason: Pain Score 1-10/Temp > 100.7 F Chlorhexidine Gluconate (Chlorhexidine 15 Ml) 15 ml PO BID SIMONE Last Admin: 01/05/21 11:11 Dose: 15 ml Documented by: Chlorhexidine Gluconate (Chlorhexidine Gluc 2% Cloth 1 Each [place]) 1 each TOPICAL DAILY [facility] Last Admin: 01/05/21 11:12 Dose: 1 each Documented by: Dexamethasone Sodium Phosphate (Dexamethasone 10 Mg/Ml Vial) 6 mg IV DAILY [facility] Last Admin: 01/05/21 11:12 Dose: 6 mg Documented by: Dextrose (Dextrose 50%-Water 25 Gm/50 Ml Disp.Syrin) 0 gm IV X1 PRN; Protocol PRN Reason: Hypoglycemia Famotidine (Famotidine 20 Mg Tablet) 20 mg GT BID SIMONE Last Admin: 01/05/21 11:12 Dose: 20 mg Documented by: Glucagon (Glucagon 1 Mg/Ml Syringe) 1 mg IM .X1 PRN PRN Reason: Hypoglycemia Heparin Sodium (Porcine) (Heparin Injection (Vial) 5,000 Unit/Ml Vial) 0 unit IV UD PRN; Protocol PRN Reason: dose adjustment Last Admin: 01/05/21 11:51 Dose: 1,000 unit Documented by: Fentanyl Citrate 1,000 mcg/ (Sodium Chloride) 100 mls @ 5 mls/hr CONT INF .Q20H [facility]; Protocol Last Titration: 01/05/21 12:00 Dose: 100 mcg/hr, 10 mls/hr Documented by: Heparin Sodium/Dextrose () 25,000 units in 250 mls @ 15 mls/hr IV .[id number] [facility]; Protocol Last Titration: 01/05/21 12:00 Dose: 1,300 units/hr, 13 mls/hr Documented by: Remdesivir 100 mg/ Sodium (Chloride) 250 mls @ 125 mls/hr IV DAILY@2200 SIMONE Stop: 01/13/21 23:59 Propofol (Diprivan) 1,000 mg in 100 mls @ 6.738 mls/hr CONT INF .Q12H [facility]; Protocol Last Titration: 01/05/21 12:00 Dose: 15 mcg/kg/min, 10.1 mls/hr Documented by: Enteral Nutritional Formula (Vital High Protein) 1,000 mls @ 70 mls/hr GT .[id number] [facility] Insulin Human Lispro (Insulin Lispro 100 Unit/Ml Insuln.Pen) 0 unit SC Q6 [facility]; Protocol Last Admin: 01/05/21 11:13 Dose: Not Given Documented by: Sodium Chloride (0.9% Saline Lock 10 Ml Syringe) 10 - 40 ml IV UD PRN PRN Reason: SALINE FLUSH STROKE Vital Signs/Narrative: Vital Signs Temp Pulse Resp BP BP Pulse Ox 01/05/21 12:00 37.1 C 66 23 H 112/48 L 90 01/05/21 11:06 72 19 H 93 01/05/21 11:00 66 19 H 125/59 H 91 01/05/21 10:00 77 25 H 144/76 H 92 Medical Necessity - Tobacco Use Smoking Status: Former smoker Tobacco Use: Cigarettes Assessment/Plan All Active Problems Acute hypoxemic respiratory failure (Acute) Metabolic acidosis (Acute) Airway intubation performed without difficulty (Acute) COVID-19 (Acute) ARDS (adult respiratory distress syndrome) (Acute) 1. acute hypoxic and hypercapnic respiratory failure 2/2 COVID 19 pneumonia, ARDS +/- PE on vent treat the underlying processes CCM following 2. acute COVID-19 pneumonia on dexa and rem-d ID consultation 3. ARDS 2/2 COVID 19 prone as able 4. Cytokine release syndrome grade 3 2/2 COVID 19 5. Possible PE CTA could not rule out PE on heparin gtt 6. DM2 fair control on SSI 7. VTE prophylaxis: anticoagulated. Inpatient E&M: [id number] Subs Hosp L3
--- NOTE | 2021-01-05 14:14 | CON.PCM_ITS ---
Problem List (1) COVID-19 Status: Acute Reason for Consult: covid Consulted by: Dr. Leyva History of Present Illness: The patient is a 75 year old M presented with hypoxia, intubated, now in icu on dex and remdesivir. Pt unable to provide history or ROS. Reportedly symptoms since 12/26, sat was 52 on arrival. - Medical History Surgical History: reviewed Allergies/Adverse Reactions: Allergies No Known Allergies Allergy (Verified 01/04/21 14:00) Home Medications: Ambulatory Orders Medication Instructions Recorded Ferrous Sulfate 325 mg PO DAILY 01/04/21 Metformin HCl 500 mg PO BID 01/04/21 Montelukast Sodium [Singulair] 10 mg PO DAILY 01/04/21 Pravastatin Sodium 40 mg PO QHS 01/04/21 - Social History SMOKING STATUS:: Former smoker Vital Signs Temp Pulse Resp BP Pulse Ox 98.8 F 66 23 H 112/48 L 90 01/05/21 12:00 01/05/21 12:00 01/05/21 12:00 01/05/21 12:00 01/05/21 12:00 Oxygen Flow Rate (L/min) 4 Oxygen Delivery Method Mechanical Ventilator Weight: 112.3 kg Body Mass Index (BMI) 35.4 Microbiology Past 72 Hours 01/04/21 14:54 SARS-CoV-2 Antigen (Rapid) - Final Mucosa - Nose SARS-CoV-2 (COVID 19) Laboratory Tests Past 24 Hrs 01/04/21 01/04/21 01/04/21 14:05 14:05 14:05 WBC RBC Hgb Hct MCV MCH MCHC RDW Std Deviation RDW Coeff of Paul Plt Count MPV Immature Gran % (Auto) Neut % (Auto) Lymph % (Auto) [place] % (Auto) Eos % (Auto) Baso % (Auto) Absolute Neuts (auto) Absolute Lymphs (auto) Nucleated RBC % Differential Comment Diff Path Review PT INR APTT Fibrinogen 600 H D-Dimer Quant (PE/DVT) 7.90 H* Specimen Type Sample Site pH Bicarbonate Actual Total CO2 Base Excess O2 Saturation O2 % ABG pCO2 ABG pO2 Fran Test Respiration Rate O2 Delivery Device Vent Mode Tidal Volume POC PEEP Sodium 139 Potassium 3.5 Chloride 106 Carbon Dioxide 19.0 L Anion Gap 14 BUN 23 H Creatinine 1.18 Estim Creat Clear Calc 55.85 Est GFR (MDRD) Af Amer 77 Est GFR (MDRD) Non-Af 64 BUN/Creatinine Ratio 19.5 Glucose 220 H Lactic Acid Calcium 8.5 Total Bilirubin 1.20 H AST 88 H ALT 44 Alkaline Phosphatase 134 H Lactate Dehydrogenase 518 H Total Creatine Kinase 318 H Troponin I 0.045 C-React Prot Ext Range 87.30 H B-Natriuretic Peptide 273.8 H Total Protein 7.2 Albumin 2.9 L Globulin 4.3 H Albumin/Globulin Ratio 0.7 L Triglycerides Procalcitonin Urine Color Urine Clarity Urine pH Ur Specific [place] Urine Protein Urine Glucose (UA) Urine Ketones Urine Occult Blood Urine Nitrite Urine Bilirubin Urine Urobilinogen Ur Leukocyte Esterase Urine RBC Urine WBC Ur Squamous Epith Cells Urine Bacteria Hyaline Casts Urine Mucus 01/04/21 01/04/21 01/04/21 14:05 14:05 14:05 WBC 7.1 RBC 5.28 Hgb 16.1 Hct 49.3 MCV 93.4 MCH 30.5 MCHC 32.7 RDW Std Deviation 50.5 H RDW Coeff of Paul 14.6 Plt Count 193 MPV 9.8 Immature Gran % (Auto) 1.400 H Neut % (Auto) 81.8 H Lymph % (Auto) 8.0 L [place] % (Auto) 8.4 Eos % (Auto) 0.0 Baso % (Auto) 0.4 Absolute Neuts (auto) 5.8 Absolute Lymphs (auto) 0.57 L Nucleated RBC % 0 Differential Comment SCANNED Diff Path Review PT INR APTT Fibrinogen D-Dimer Quant (PE/DVT) Specimen Type Sample Site pH Bicarbonate Actual Total CO2 Base Excess O2 Saturation O2 % ABG pCO2 ABG pO2 Fran Test Respiration Rate O2 Delivery Device Vent Mode Tidal Volume POC PEEP Sodium Potassium Chloride Carbon Dioxide Anion Gap BUN Creatinine Estim Creat Clear Calc Est GFR (MDRD) Af Amer Est GFR (MDRD) Non-Af BUN/Creatinine Ratio Glucose Lactic Acid 9.8 H* Calcium Total Bilirubin AST ALT Alkaline Phosphatase Lactate Dehydrogenase Total Creatine Kinase Troponin I C-React Prot Ext Range B-Natriuretic Peptide Total Protein Albumin Globulin Albumin/Globulin Ratio Triglycerides Procalcitonin 0.23 H Urine Color Urine Clarity Urine pH Ur Specific [place] Urine Protein Urine Glucose (UA) Urine Ketones Urine Occult Blood Urine Nitrite Urine Bilirubin Urine Urobilinogen Ur Leukocyte Esterase Urine RBC Urine WBC Ur Squamous Epith Cells Urine Bacteria Hyaline Casts Urine Mucus 02/01/04/21 01/04/21 14:05 14:05 15:12 WBC RBC Hgb Hct MCV MCH MCHC RDW Std Deviation RDW Coeff of Paul Plt Count MPV Immature Gran % (Auto) Neut % (Auto) Lymph % (Auto) [place] % (Auto) Eos % (Auto) Baso % (Auto) Absolute Neuts (auto) Absolute Lymphs (auto) Nucleated RBC % Differential Comment Diff Path Review PT INR APTT 31.3 Fibrinogen D-Dimer Quant (PE/DVT) Specimen Type ART Sample Site R Radial pH 7.24 L Bicarbonate Actual 20.7 L Total CO2 22 Base Excess -7 L O2 Saturation 94 L O2 % 100 ABG pCO2 48.7 H ABG pO2 86 Fran Test Positive Respiration Rate 14 O2 Delivery Device Adult Vent Vent Mode AC Tidal Volume 500 POC PEEP 8 Sodium Potassium Chloride Carbon Dioxide Anion Gap BUN Creatinine Estim Creat Clear Calc Est GFR (MDRD) Af Amer Est GFR (MDRD) Non-Af BUN/Creatinine Ratio Glucose Lactic Acid Calcium Total Bilirubin AST ALT Alkaline Phosphatase Lactate Dehydrogenase Total Creatine Kinase Troponin I C-React Prot Ext Range B-Natriuretic Peptide Total Protein Albumin Globulin Albumin/Globulin Ratio Triglycerides 137 Procalcitonin Urine Color Urine Clarity Urine pH Ur Specific [place] Urine Protein Urine Glucose (UA) Urine Ketones Urine Occult Blood Urine Nitrite Urine Bilirubin Urine Urobilinogen Ur Leukocyte Esterase Urine RBC Urine WBC Ur Squamous Epith Cells Urine Bacteria Hyaline Casts Urine Mucus 01/04/21 01/04/21 01/04/21 16:18 20:00 20:00 WBC RBC Hgb Hct MCV MCH MCHC RDW Std Deviation RDW Coeff of Paul Plt Count MPV Immature Gran % (Auto) Neut % (Auto) Lymph % (Auto) [place] % (Auto) Eos % (Auto) Baso % (Auto) Absolute Neuts (auto) Absolute Lymphs (auto) Nucleated RBC % Differential Comment Diff Path Review PT 14.2 INR 1.2 APTT Fibrinogen D-Dimer Quant (PE/DVT) Specimen Type Sample Site pH Bicarbonate Actual Total CO2 Base Excess O2 Saturation O2 % ABG pCO2 ABG pO2 Fran Test Respiration Rate O2 Delivery Device Vent Mode Tidal Volume POC PEEP Sodium Potassium Chloride Carbon Dioxide Anion Gap BUN Creatinine Estim Creat Clear Calc Est GFR (MDRD) Af Amer Est GFR (MDRD) Non-Af BUN/Creatinine Ratio Glucose Lactic Acid 2.9 H* Calcium Total Bilirubin AST ALT Alkaline Phosphatase Lactate Dehydrogenase Total Creatine Kinase Troponin I C-React Prot Ext Range B-Natriuretic Peptide Total Protein Albumin Globulin Albumin/Globulin Ratio Triglycerides Procalcitonin Urine Color Yellow Urine Clarity Clear Urine pH 5.0 Ur Specific [place] 1.025 Urine Protein 100 H Urine Glucose (UA) 100 H Urine Ketones 15 H Urine Occult Blood 250 H Urine Nitrite Negative Urine Bilirubin Negative Urine Urobilinogen 1 H Ur Leukocyte Esterase Negative Urine RBC 0-5 SEEN Urine WBC 0 SEEN Ur Squamous Epith Cells 0-5 SEEN Urine Bacteria 0 SEEN Hyaline Casts 0-5 SEEN Urine Mucus 0 SEEN 01/05/21 01/05/21 01/05/21 02:30 02:30 02:30 WBC 3.8 L RBC 4.55 L Hgb 13.6 Hct 41.7 MCV 91.6 MCH 29.9 MCHC 32.6 RDW Std Deviation 49.6 H RDW Coeff of Paul 14.7 H Plt Count 135 L MPV 9.8 Immature Gran % (Auto) 0.800 Neut % (Auto) 86.0 H Lymph % (Auto) 7.9 L [place] % (Auto) 5.3 Eos % (Auto) 0.0 Baso % (Auto) 0.0 Absolute Neuts (auto) 3.3 Absolute Lymphs (auto) 0.30 L Nucleated RBC % 0 Differential Comment Diff Path Review Reviewed PT INR APTT 221.1 H* Fibrinogen D-Dimer Quant (PE/DVT) Specimen Type Sample Site pH Bicarbonate Actual Total CO2 Base Excess O2 Saturation O2 % ABG pCO2 ABG pO2 Fran Test Respiration Rate O2 Delivery Device Vent Mode Tidal Volume POC PEEP Sodium 141 Potassium 4.2 Chloride 111 H Carbon Dioxide 24.0 Anion Gap 6 BUN 22 H Creatinine 0.75 Estim Creat Clear Calc 65.90 Est GFR (MDRD) Af Amer 131 Est GFR (MDRD) Non-Af 109 BUN/Creatinine Ratio 29.5 H Glucose 195 H Lactic Acid Calcium 7.9 L Total Bilirubin 0.50 AST 55 H ALT 32 Alkaline Phosphatase 90 Lactate Dehydrogenase Total Creatine Kinase Troponin I C-React Prot Ext Range B-Natriuretic Peptide Total Protein 5.7 L Albumin 2.3 L Globulin 3.4 Albumin/Globulin Ratio 0.7 L Triglycerides Procalcitonin Urine Color Urine Clarity Urine pH Ur Specific [place] Urine Protein Urine Glucose (UA) Urine Ketones Urine Occult Blood Urine Nitrite Urine Bilirubin Urine Urobilinogen Ur Leukocyte Esterase Urine RBC Urine WBC Ur Squamous Epith Cells Urine Bacteria Hyaline Casts Urine Mucus 01/05/21 11:25 WBC RBC Hgb Hct MCV MCH MCHC RDW Std Deviation RDW Coeff of Paul Plt Count MPV Immature Gran % (Auto) Neut % (Auto) Lymph % (Auto) [place] % (Auto) Eos % (Auto) Baso % (Auto) Absolute Neuts (auto) Absolute Lymphs (auto) Nucleated RBC % Differential Comment Diff Path Review PT INR APTT 53.7 H Fibrinogen D-Dimer Quant (PE/DVT) Specimen Type Sample Site pH Bicarbonate Actual Total CO2 Base Excess O2 Saturation O2 % ABG pCO2 ABG pO2 Fran Test Respiration Rate O2 Delivery Device Vent Mode Tidal Volume POC PEEP Sodium Potassium Chloride Carbon Dioxide Anion Gap BUN Creatinine Estim Creat Clear Calc Est GFR (MDRD) Af Amer Est GFR (MDRD) Non-Af BUN/Creatinine Ratio Glucose Lactic Acid Calcium Total Bilirubin AST ALT Alkaline Phosphatase Lactate Dehydrogenase Total Creatine Kinase Troponin I C-React Prot Ext Range B-Natriuretic Peptide Total Protein Albumin Globulin Albumin/Globulin Ratio Triglycerides Procalcitonin Urine Color Urine Clarity Urine pH Ur Specific [place] Urine Protein Urine Glucose (UA) Urine Ketones Urine Occult Blood Urine Nitrite Urine Bilirubin Urine Urobilinogen Ur Leukocyte Esterase Urine RBC Urine WBC Ur Squamous Epith Cells Urine Bacteria Hyaline Casts Urine Mucus - Other Studies Radiology: [] reviewed Other Studies: [] Route of nutrition/ use of supplements: [] Nutritional Intake: [] IV Site: [] Abdi Catheter: [] - Physical Exam General: Non-Cooperative HEENT: Atraumatic, PERRLA, EOMI Neck: Supple, No Nodes Lungs: Diminished Cardiovascular: Regular rate, Regular Rhythm Abdomen: Soft, Non Tender, Non-Distended Extremities: No edema Skin: No rashes Musculoskeletal: No Tenderness to Palpation of Joints or Extremities - Assessment/Plan Antibiotics: [] Assessment/Plan: [] Active and Suspected Problems Acute hypoxemic respiratory failure (Acute) Metabolic acidosis (Acute) Airway intubation performed without difficulty (Acute) COVID-19 (Acute) ARDS (adult respiratory distress syndrome) (Acute) covid with hypoxia and resp failure - on dex, remdesivir, hep gtt. Sx started 12/26/20 reportedly. Will follow, thank you
--- NOTE | 2021-01-05 14:47 | CASEMGMT ---
Social Work SW attended ICU rounds. Pt on phone throughout rounds and tearful during discussion. After rounds SW attempted to call to offer support. VM left with SW phone number and reason for call. SW will await return call. WILBERTO Aguero
[2021-01-05] MEDS: HEPARIN/D5w 25,000 UNITS 25,000 UNITS/250 ML IV.SOLN. 13 UNITS IV (14:51)
[2021-01-05] MEDS: Vital High Protein 1,000 ML 70 ML GT (15:45)
[2021-01-05 17:46] LABS: Bedside Glucose 146 mg/dL (70-110)
[2021-01-05] MEDS: Propofol 10MG/Ml 1,000 MG/100 ML Bottle 10.1 MG CONT INF (18:00)
[2021-01-05 18:33] LABS: Partial Thromboplast Time 64.8 Seconds (24.1-36.2)
[2021-01-05 18:56] LABS: Bedside Glucose 211 mg/dL (70-110)
[2021-01-06] VITALS (35 sets, daily range): BP systolic 111–180; BP diastolic 55–90; PULSE 55–104; RESP 12–32; TEMP 36.7–37.4; O2SAT 87–95
[2021-01-06] MEDS: Insulin Lispro 100 UNIT/ML INSULN.PEN SC ×4 (01:10→17:22)
[2021-01-06 01:36] LABS: Bedside Glucose 218 mg/dL (70-110)
[2021-01-06 01:56] LABS: Partial Thromboplast Time 59.2 Seconds (24.1-36.2)
[2021-01-06] MEDS: Propofol 10MG/Ml 1,000 MG/100 ML Bottle 10.1 MG CONT INF (03:55)
[2021-01-06 04:53] LABS: Absolute Lymphocyte Count 0.31 X10^3/uL (0.83-4.51); Absolute Neutrophil Count 4.9 X10^3/uL (2.0-7.7); Basophil# 0.01 X10^3/uL; Basophil% 0.2 % (0-1); Hematocrit 38.7 % (40-54); Hemoglobin 13.2 g/dL (13.0-16.5); Lymphocyte # 0.31 X10^3/ul (4.0); Lymphocyte % 5.5 % (19-41); Mean Corp Hgb Conc 34.1 g/dL (32-36); Mean Corpuscular Volume 93.7 fL (80-94); Mean Platelet Vol. 10.2 fl (6.2-12.0); Monocyte# 0.37 X10^3/uL; Monocyte% 6.6 % (0-10); NRBC Flagged by Analyzer 0 % (0-5); Neutrophil # 4.92 X10^3/uL (2.7-7.7); Neutrophil % 87.3 % (47-70); POSITIVE DIFFERENTIAL YES; Platelet Count 168 K/mm3 (150-450); RBC Distribution Width CV 14.6 % (11.6-14.6); RBC Distribution Width SD 50.5 fl (35.1-43.9); Red Blood Count 4.13 M/mm3 (4.6-6.2); White Blood Count 5.6 K/mm3 (4.4-11.0)
[2021-01-06 05:17] LABS: Differential Indicated SCAN CRITERIA MET
[2021-01-06 05:51] LABS: ALB/GLOB Ratio 0.5 RATIO (0.9-2.4); AST(SGOT) 51 U/L (15-37); Alanine Aminotransfer ALT/SGPT 27 U/L (16-61); Albumin, Serum 1.8 g/dL (3.2-5.0); Alkaline Phosphatase 84 U/L (45-117); Anion Gap 7 (5-15); BUN 29 mg/dL (7-18); BUN/Creat Ratio 46.8 RATIO (10-20); Calcium,Total 6.5 mg/dL (8.5-10.1); Chloride 105 mmol/L (98-107); Creatinine, Serum 0.62 mg/dL (0.70-1.30); EST Glomerular Filtration Rate 134 mL/min (>60); Est Glom Filt Rate - Afr Amer 163 mL/min (>60); Globulin 3.4 g/dL (2.2-4.2); Glucose 248 mg/dL (74-106); Potassium 4.2 mmol/L (3.5-5.1); Protein, Total 5.2 g/dL (6.4-8.2); Sodium Level 137 mmol/L (136-145)
[2021-01-06 05:55] LABS: Differential Comment SCANNED
[2021-01-06 06:41] LABS: D-Dimer Quantitative (DVT/PE) 4.96 FEU/ug/m (0.27-0.49)
[2021-01-06 06:43] LABS: Partial Thromboplast Time > 250.0 Seconds (24.1-36.2)
--- NOTE | 2021-01-06 07:03 | PN_ITS ---
Subjective: Patient did okay overnight. Patient was able to have some improvement in oxygenation and does follow simple commands. Patient denied any pain. Patient did not have a spontaneous breathing trial given increased PEEP and FiO2. No significant arrhythmias have been noted. Patient has tolerated tube feeds. General: - - RASS -1. Breathing with the ventilator HEENT: Atraumatic, PERRLA, EOMI, Normocephalic, - - No scleral icterus or injection noted Oral: Moist Mucosa, No Gingival or Mucosal Lesions/ Ulcerations Neck: Supple, No JVD, No Nodes, Trachea Midline Lungs: No rhonchi, No wheeze, No rales, Diminished Cardiovascular: Normal S1, Normal S2, No murmurs, Bradycardic, No rub noted, No Gallop Abdomen: Bowel Sounds Present, Soft, Non Tender, Non-Distended, Obese Extremities: No clubbing, No cyanosis, Edema Skin: No rashes, No breakdown Musculoskeletal: No Tenderness to Palpation of Joints or Extremities Lymphatic: No Cervical, Supraclavicular, or Inguinal Adenopathy Neurological: Cranial nerves II-XII grossly intact, Neuro grossly intact, Motor Exam 5/5 strength throughout Psych/Mental Status: Flat Affect Vital Signs Temp Pulse Resp BP Pulse Ox 36.8 C 55 L 13 111/57 L 94 01/06/21 04:00 01/06/21 06:00 01/06/21 06:00 01/06/21 06:00 01/06/21 06:00 Oxygen Flow Rate (L/min) 4 Oxygen Delivery Method Mechanical Ventilator Weight: 113.3 kg Body Mass Index (BMI) 35.4 Intake and Output for Last 24 Hours 01/04/21 01/05/21 01/06/21 23:59 23:59 23:59 Intake Total 679.40 / 703.10 1034.44 / 1154.54 694.37 / 694.37 Output Total 350 / 500 1160 / 1235 285 / 285 Balance 329.40 / 203.10 -125.56 / -80.46 409.37 / 409.37 Labs (Last 48 Hours) 01/04/21 01/04/21 01/04/21 14:05 14:05 14:05 WBC RBC Hgb Hct MCV MCH MCHC RDW Std Deviation RDW Coeff of Paul Plt Count MPV Immature Gran % (Auto) Neut % (Auto) Lymph % (Auto) [place] % (Auto) Eos % (Auto) Baso % (Auto) Absolute Neuts (auto) Absolute Lymphs (auto) Nucleated RBC % Differential Comment Diff Path Review PT INR APTT Fibrinogen 600 H D-Dimer Quant (PE/DVT) 7.90 H* Specimen Type Sample Site pH Bicarbonate Actual Total CO2 Base Excess O2 Saturation O2 % ABG pCO2 ABG pO2 Fran Test Respiration Rate O2 Delivery Device Vent Mode Tidal Volume POC PEEP Sodium 139 Potassium 3.5 Chloride 106 Carbon Dioxide 19.0 L Anion Gap 14 BUN 23 H Creatinine 1.18 Estim Creat Clear Calc 55.85 Est GFR (MDRD) Af Amer 77 Est GFR (MDRD) Non-Af 64 BUN/Creatinine Ratio 19.5 Glucose 220 H Lactic Acid Calcium 8.5 Total Bilirubin 1.20 H AST 88 H ALT 44 Alkaline Phosphatase 134 H Lactate Dehydrogenase 518 H Total Creatine Kinase 318 H Troponin I 0.045 C-React Prot Ext Range 87.30 H B-Natriuretic Peptide 273.8 H Total Protein 7.2 Albumin 2.9 L Globulin 4.3 H Albumin/Globulin Ratio 0.7 L Triglycerides Procalcitonin Urine Color Urine Clarity Urine pH Ur Specific [place] Urine Protein Urine Glucose (UA) Urine Ketones Urine Occult Blood Urine Nitrite Urine Bilirubin Urine Urobilinogen Ur Leukocyte Esterase Urine RBC Urine WBC Ur Squamous Epith Cells Urine Bacteria Hyaline Casts Urine Mucus POC Glucose 01/04/21 01/04/21 01/04/21 14:05 14:05 14:05 WBC 7.1 RBC 5.28 Hgb 16.1 Hct 49.3 MCV 93.4 MCH 30.5 MCHC 32.7 RDW Std Deviation 50.5 H RDW Coeff of Paul 14.6 Plt Count 193 MPV 9.8 Immature Gran % (Auto) 1.400 H Neut % (Auto) 81.8 H Lymph % (Auto) 8.0 L [place] % (Auto) 8.4 Eos % (Auto) 0.0 Baso % (Auto) 0.4 Absolute Neuts (auto) 5.8 Absolute Lymphs (auto) 0.57 L Nucleated RBC % 0 Differential Comment SCANNED Diff Path Review PT INR APTT Fibrinogen D-Dimer Quant (PE/DVT) Specimen Type Sample Site pH Bicarbonate Actual Total CO2 Base Excess O2 Saturation O2 % ABG pCO2 ABG pO2 Fran Test Respiration Rate O2 Delivery Device Vent Mode Tidal Volume POC PEEP Sodium Potassium Chloride Carbon Dioxide Anion Gap BUN Creatinine Estim Creat Clear Calc Est GFR (MDRD) Af Amer Est GFR (MDRD) Non-Af BUN/Creatinine Ratio Glucose Lactic Acid 9.8 H* Calcium Total Bilirubin AST ALT Alkaline Phosphatase Lactate Dehydrogenase Total Creatine Kinase Troponin I C-React Prot Ext Range B-Natriuretic Peptide Total Protein Albumin Globulin Albumin/Globulin Ratio Triglycerides Procalcitonin 0.23 H Urine Color Urine Clarity Urine pH Ur Specific [place] Urine Protein Urine Glucose (UA) Urine Ketones Urine Occult Blood Urine Nitrite Urine Bilirubin Urine Urobilinogen Ur Leukocyte Esterase Urine RBC Urine WBC Ur Squamous Epith Cells Urine Bacteria Hyaline Casts Urine Mucus POC Glucose 01/04/21 01/04/21 01/04/21 14:05 14:05 15:12 WBC RBC Hgb Hct MCV MCH MCHC RDW Std Deviation RDW Coeff of Paul Plt Count MPV Immature Gran % (Auto) Neut % (Auto) Lymph % (Auto) [place] % (Auto) Eos % (Auto) Baso % (Auto) Absolute Neuts (auto) Absolute Lymphs (auto) Nucleated RBC % Differential Comment Diff Path Review PT INR APTT 31.3 Fibrinogen D-Dimer Quant (PE/DVT) Specimen Type ART Sample Site R Radial pH 7.24 L Bicarbonate Actual 20.7 L Total CO2 22 Base Excess -7 L O2 Saturation 94 L O2 % 100 ABG pCO2 48.7 H ABG pO2 86 Fran Test Positive Respiration Rate 14 O2 Delivery Device Adult Vent Vent Mode AC Tidal Volume 500 POC PEEP 8 Sodium Potassium Chloride Carbon Dioxide Anion Gap BUN Creatinine Estim Creat Clear Calc Est GFR (MDRD) Af Amer Est GFR (MDRD) Non-Af BUN/Creatinine Ratio Glucose Lactic Acid Calcium Total Bilirubin AST ALT Alkaline Phosphatase Lactate Dehydrogenase Total Creatine Kinase Troponin I C-React Prot Ext Range B-Natriuretic Peptide Total Protein Albumin Globulin Albumin/Globulin Ratio Triglycerides 137 Procalcitonin Urine Color Urine Clarity Urine pH Ur Specific [place] Urine Protein Urine Glucose (UA) Urine Ketones Urine Occult Blood Urine Nitrite Urine Bilirubin Urine Urobilinogen Ur Leukocyte Esterase Urine RBC Urine WBC Ur Squamous Epith Cells Urine Bacteria Hyaline Casts Urine Mucus POC Glucose 01/04/21 01/04/21 01/04/21 16:18 20:00 20:00 WBC RBC Hgb Hct MCV MCH MCHC RDW Std Deviation RDW Coeff of Paul Plt Count MPV Immature Gran % (Auto) Neut % (Auto) Lymph % (Auto) [place] % (Auto) Eos % (Auto) Baso % (Auto) Absolute Neuts (auto) Absolute Lymphs (auto) Nucleated RBC % Differential Comment Diff Path Review PT 14.2 INR 1.2 APTT Fibrinogen D-Dimer Quant (PE/DVT) Specimen Type Sample Site pH Bicarbonate Actual Total CO2 Base Excess O2 Saturation O2 % ABG pCO2 ABG pO2 Fran Test Respiration Rate O2 Delivery Device Vent Mode Tidal Volume POC PEEP Sodium Potassium Chloride Carbon Dioxide Anion Gap BUN Creatinine Estim Creat Clear Calc Est GFR (MDRD) Af Amer Est GFR (MDRD) Non-Af BUN/Creatinine Ratio Glucose Lactic Acid 2.9 H* Calcium Total Bilirubin AST ALT Alkaline Phosphatase Lactate Dehydrogenase Total Creatine Kinase Troponin I C-React Prot Ext Range B-Natriuretic Peptide Total Protein Albumin Globulin Albumin/Globulin Ratio Triglycerides Procalcitonin Urine Color Yellow Urine Clarity Clear Urine pH 5.0 Ur Specific [place] 1.025 Urine Protein 100 H Urine Glucose (UA) 100 H Urine Ketones 15 H Urine Occult Blood 250 H Urine Nitrite Negative Urine Bilirubin Negative Urine Urobilinogen 1 H Ur Leukocyte Esterase Negative Urine RBC 0-5 SEEN Urine WBC 0 SEEN Ur Squamous Epith Cells 0-5 SEEN Urine Bacteria 0 SEEN Hyaline Casts 0-5 SEEN Urine Mucus 0 SEEN POC Glucose 01/05/21 01/05/21 01/05/21 00:32 02:30 02:30 WBC 3.8 L RBC 4.55 L Hgb 13.6 Hct 41.7 MCV 91.6 MCH 29.9 MCHC 32.6 RDW Std Deviation 49.6 H RDW Coeff of Paul 14.7 H Plt Count 135 L MPV 9.8 Immature Gran % (Auto) 0.800 Neut % (Auto) 86.0 H Lymph % (Auto) 7.9 L [place] % (Auto) 5.3 Eos % (Auto) 0.0 Baso % (Auto) 0.0 Absolute Neuts (auto) 3.3 Absolute Lymphs (auto) 0.30 L Nucleated RBC % 0 Differential Comment Diff Path Review Reviewed PT INR APTT Fibrinogen D-Dimer Quant (PE/DVT) Specimen Type Sample Site pH Bicarbonate Actual Total CO2 Base Excess O2 Saturation O2 % ABG pCO2 ABG pO2 Fran Test Respiration Rate O2 Delivery Device Vent Mode Tidal Volume POC PEEP Sodium 141 Potassium 4.2 Chloride 111 H Carbon Dioxide 24.0 Anion Gap 6 BUN 22 H Creatinine 0.75 Estim Creat Clear Calc 65.90 Est GFR (MDRD) Af Amer 131 Est GFR (MDRD) Non-Af 109 BUN/Creatinine Ratio 29.5 H Glucose 195 H Lactic Acid Calcium 7.9 L Total Bilirubin 0.50 AST 55 H ALT 32 Alkaline Phosphatase 90 Lactate Dehydrogenase Total Creatine Kinase Troponin I C-React Prot Ext Range B-Natriuretic Peptide Total Protein 5.7 L Albumin 2.3 L Globulin 3.4 Albumin/Globulin Ratio 0.7 L Triglycerides Procalcitonin Urine Color Urine Clarity Urine pH Ur Specific [place] Urine Protein Urine Glucose (UA) Urine Ketones Urine Occult Blood Urine Nitrite Urine Bilirubin Urine Urobilinogen Ur Leukocyte Esterase Urine RBC Urine WBC Ur Squamous Epith Cells Urine Bacteria Hyaline Casts Urine Mucus POC Glucose 179 H 01/05/21 01/05/21 01/05/21 02:30 05:18 11:10 WBC RBC Hgb Hct MCV MCH MCHC RDW Std Deviation RDW Coeff of Paul Plt Count MPV Immature Gran % (Auto) Neut % (Auto) Lymph % (Auto) [place] % (Auto) Eos % (Auto) Baso % (Auto) Absolute Neuts (auto) Absolute Lymphs (auto) Nucleated RBC % Differential Comment Diff Path Review PT INR APTT 221.1 H* Fibrinogen D-Dimer Quant (PE/DVT) Specimen Type Sample Site pH Bicarbonate Actual Total CO2 Base Excess O2 Saturation O2 % ABG pCO2 ABG pO2 Fran Test Respiration Rate O2 Delivery Device Vent Mode Tidal Volume POC PEEP Sodium Potassium Chloride Carbon Dioxide Anion Gap BUN Creatinine Estim Creat Clear Calc Est GFR (MDRD) Af Amer Est GFR (MDRD) Non-Af BUN/Creatinine Ratio Glucose Lactic Acid Calcium Total Bilirubin AST ALT Alkaline Phosphatase Lactate Dehydrogenase Total Creatine Kinase Troponin I C-React Prot Ext Range B-Natriuretic Peptide Total Protein Albumin Globulin Albumin/Globulin Ratio Triglycerides Procalcitonin Urine Color Urine Clarity Urine pH Ur Specific [place] Urine Protein Urine Glucose (UA) Urine Ketones Urine Occult Blood Urine Nitrite Urine Bilirubin Urine Urobilinogen Ur Leukocyte Esterase Urine RBC Urine WBC Ur Squamous Epith Cells Urine Bacteria Hyaline Casts Urine Mucus POC Glucose 160 H 146 H 01/05/21 01/05/21 01/05/21 11:25 17:57 18:10 WBC RBC Hgb Hct MCV MCH MCHC RDW Std Deviation RDW Coeff of Paul Plt Count MPV Immature Gran % (Auto) Neut % (Auto) Lymph % (Auto) [place] % (Auto) Eos % (Auto) Baso % (Auto) Absolute Neuts (auto) Absolute Lymphs (auto) Nucleated RBC % Differential Comment Diff Path Review PT INR APTT 53.7 H 64.8 H Fibrinogen D-Dimer Quant (PE/DVT) Specimen Type Sample Site pH Bicarbonate Actual Total CO2 Base Excess O2 Saturation O2 % ABG pCO2 ABG pO2 Fran Test Respiration Rate O2 Delivery Device Vent Mode Tidal Volume POC PEEP Sodium Potassium Chloride Carbon Dioxide Anion Gap BUN Creatinine Estim Creat Clear Calc Est GFR (MDRD) Af Amer Est GFR (MDRD) Non-Af BUN/Creatinine Ratio Glucose Lactic Acid Calcium Total Bilirubin AST ALT Alkaline Phosphatase Lactate Dehydrogenase Total Creatine Kinase Troponin I C-React Prot Ext Range B-Natriuretic Peptide Total Protein Albumin Globulin Albumin/Globulin Ratio Triglycerides Procalcitonin Urine Color Urine Clarity Urine pH Ur Specific [place] Urine Protein Urine Glucose (UA) Urine Ketones Urine Occult Blood Urine Nitrite Urine Bilirubin Urine Urobilinogen Ur Leukocyte Esterase Urine RBC Urine WBC Ur Squamous Epith Cells Urine Bacteria Hyaline Casts Urine Mucus POC Glucose 211 H 01/06/21 01/06/21 01/06/21 00:20 01:07 04:45 WBC 5.6 RBC 4.13 L Hgb 13.2 Hct 38.7 L MCV 93.7 MCH 32.0 MCHC 34.1 RDW Std Deviation 50.5 H RDW Coeff of Paul 14.6 Plt Count 168 MPV 10.2 Immature Gran % (Auto) 0.400 Neut % (Auto) 87.3 H Lymph % (Auto) 5.5 L [place] % (Auto) 6.6 Eos % (Auto) 0.0 Baso % (Auto) 0.2 Absolute Neuts (auto) 4.9 Absolute Lymphs (auto) 0.31 L Nucleated RBC % 0 Differential Comment SCANNED Diff Path Review PT INR APTT 59.2 H Fibrinogen D-Dimer Quant (PE/DVT) Specimen Type Sample Site pH Bicarbonate Actual Total CO2 Base Excess O2 Saturation O2 % ABG pCO2 ABG pO2 Fran Test Respiration Rate O2 Delivery Device Vent Mode Tidal Volume POC PEEP Sodium Potassium Chloride Carbon Dioxide Anion Gap BUN Creatinine Estim Creat Clear Calc Est GFR (MDRD) Af Amer Est GFR (MDRD) Non-Af BUN/Creatinine Ratio Glucose Lactic Acid Calcium Total Bilirubin AST ALT Alkaline Phosphatase Lactate Dehydrogenase Total Creatine Kinase Troponin I C-React Prot Ext Range B-Natriuretic Peptide Total Protein Albumin Globulin Albumin/Globulin Ratio Triglycerides Procalcitonin Urine Color Urine Clarity Urine pH Ur Specific [place] Urine Protein Urine Glucose (UA) Urine Ketones Urine Occult Blood Urine Nitrite Urine Bilirubin Urine Urobilinogen Ur Leukocyte Esterase Urine RBC Urine WBC Ur Squamous Epith Cells Urine Bacteria Hyaline Casts Urine Mucus POC Glucose 218 H 01/06/21 01/06/21 01/06/21 04:45 04:45 05:50 WBC RBC Hgb Hct MCV MCH MCHC RDW Std Deviation RDW Coeff of Paul Plt Count MPV Immature Gran % (Auto) Neut % (Auto) Lymph % (Auto) [place] % (Auto) Eos % (Auto) Baso % (Auto) Absolute Neuts (auto) Absolute Lymphs (auto) Nucleated RBC % Differential Comment Diff Path Review PT INR APTT Cancelled > 250.0 H* Fibrinogen D-Dimer Quant (PE/DVT) Cancelled 4.96 H* Specimen Type Sample Site pH Bicarbonate Actual Total CO2 Base Excess O2 Saturation O2 % ABG pCO2 ABG pO2 Fran Test Respiration Rate O2 Delivery Device Vent Mode Tidal Volume POC PEEP Sodium 137 Potassium 4.2 Chloride 105 Carbon Dioxide 25.0 Anion Gap 7 BUN 29 H Creatinine 0.62 L Estim Creat Clear Calc 65.90 Est GFR (MDRD) Af Amer 163 Est GFR (MDRD) Non-Af 134 BUN/Creatinine Ratio 46.8 H Glucose 248 H Lactic Acid Calcium 6.5 L* Total Bilirubin 0.80 AST 51 H ALT 27 Alkaline Phosphatase 84 Lactate Dehydrogenase Total Creatine Kinase Troponin I C-React Prot Ext Range B-Natriuretic Peptide Total Protein 5.2 L Albumin 1.8 L Globulin 3.4 Albumin/Globulin Ratio 0.5 L Triglycerides Procalcitonin Urine Color Urine Clarity Urine pH Ur Specific [place] Urine Protein Urine Glucose (UA) Urine Ketones Urine Occult Blood Urine Nitrite Urine Bilirubin Urine Urobilinogen Ur Leukocyte Esterase Urine RBC Urine WBC Ur Squamous Epith Cells Urine Bacteria Hyaline Casts Urine Mucus POC Glucose Microbiology 01/05/21 06:45 Sputum, Induced/Lukens Gram Stain - Final 01/04/21 14:54 Mucosa - Nose SARS-CoV-2 Antigen (Rapid) - Final SARS-CoV-2 (COVID 19) Medical Necessity - Tobacco Use Smoking Status: Former smoker Tobacco Use: Cigarettes Assessment/Plan All Active Problems Acute hypoxemic respiratory failure (Acute) Metabolic acidosis (Acute) Airway intubation performed without difficulty (Acute) COVID-19 (Acute) ARDS (adult respiratory distress syndrome) (Acute) RECOMMENDATIONS: 1. Continue GI prophylaxis and tube feeds as tolerated 2. Possible diuretics tomorrow 3. Wean PEEP and FiO2 as tolerated 4. Spontaneous breathing and awakening trials per protocol 5. Remdesivir per ID. Continue Decadron and anticoagulation 6. Empiric antibiotics pending culture data IMPRESSIONS: 1. Acute hypoxic respiratory failure secondary to ARDS secondary to acute COVID-19 pneumonia Unclear how much of patient's current oxygen status is secondary to cor pulmonale given low presenting oxygen saturations. Continue to monitor saturations closely. Wean oxygen and PEEP as tolerated. Agree with Decadron. Remdesivir per infectious disease. Patient is on empiric antibiotics and anticoagulation for now pending culture data. Unclear patient severely elevated D-dimer is secondary to protracted hypoxia. Patient remains on full anticoagulation for now. Continue to monitor liver function given remdesivir. 2. Probable COPD Patient was significant emphysematous changes noted on CT of the chest. This does complicate respiratory status. We will hold on any additional therapy as patient is currently on Decadron. Bronchodilators will be continued. Patient may require mucolytic therapy. 3. Diabetes mellitus type 2/morbid obesity/hyperlipidemia Complicates care, management, recovery and prognosis. Will need to watch patient closely for complications of Decadron therapy given history of diabetes. Okay to continue statin for now. Patient is a full code TIME: 37 minutes critical care time spent addressing patient's acute hypoxic respiratory failure, diabetes mellitus, review of all data and collaboration with care team (5:30 AM to 6:30 AM) [phone] [id number] Critical care first hour
[2021-01-06] MEDS: CHLORHEXIDINE GLUC 2% CLOTH 1 EACH TOWELETTE TOPICAL (08:29)
[2021-01-06] MEDS: Famotidine 20 MG Tablet GT ×2 (08:30→22:49)
[2021-01-06] MEDS: Chlorhexidine 15 ML PO ×2 (08:30→22:49)
[2021-01-06] MEDS: dexAMETHasone 10 MG/ML Vial 6 MG IV (08:30)
[2021-01-06] MEDS: 0.9% Saline Lock 10 ML Syringe IV (08:34)
[2021-01-06] MEDS: HEPARIN/D5w 25,000 UNITS 25,000 UNITS/250 ML IV.SOLN. 10 UNITS IV (10:00)
--- NOTE | 2021-01-06 11:48 | PN_ITS ---
Patient Problems: Active and Suspected Problems Acute hypoxemic respiratory failure (Acute) Metabolic acidosis (Acute) Airway intubation performed without difficulty (Acute) COVID-19 (Acute) ARDS (adult respiratory distress syndrome) (Acute) Subjective: Slight decrease FiO2. Following some commands earlier. Vitals/I&O's: Vital Signs Temp Pulse Resp BP Pulse Ox 37.0 C 104 H 25 H 180/90 H 90 01/06/21 10:00 01/06/21 11:00 01/06/21 11:00 01/06/21 11:00 01/06/21 11:00 Oxygen Flow Rate (L/min) 4 Oxygen Delivery Method Mechanical Ventilator Weight: 113.3 kg Body Mass Index (BMI) 35.4 Intake and Output for Last 24 Hours 01/04/21 01/05/21 01/06/21 23:59 23:59 23:59 Intake Total 679.40 / 703.10 1034.44 / 1154.54 1652.50 / 1652.50 Output Total 350 / 500 1160 / 1235 395 / 395 Balance 329.40 / 203.10 -125.56 / -80.46 1257.50 / 1257.50 General: - - intubated and sedated HEENT: Atraumatic, Normocephalic, - - OG and ETT in place Oral: Moist Mucosa, No Gingival or Mucosal Lesions/ Ulcerations Neck: No Nodes, Thyroid Normal Size and Texture Lungs: Clear to auscultation, Normal air movement Cardiovascular: Regular rate, Regular Rhythm, Normal S1, Normal S2, No murmurs Abdomen: Bowel Sounds Present, Soft, Non Tender, Non-Distended, No Hepato- splenomegaly Extremities: No edema, No Calf Tenderness Skin: No rashes, No breakdown Neurological: Motor Exam 5/5 strength throughout, - - no clonus Microbiology Past 72 Hours 01/05/21 06:45 Sputum, Induced/Lukens Gram Stain - Final 01/05/21 06:45 Sputum, Induced/Lukens Respiratory Culture - Preliminary Staphylococcus species 01/04/21 14:54 Mucosa - Nose SARS-CoV-2 Antigen (Rapid) - Final SARS-CoV-2 (COVID 19) Laboratory Results 01/05/21 02:30: Diff Path Review Reviewed 01/05/21 11:10: POC Glucose 146 H 01/05/21 17:57: POC Glucose 211 H 01/05/21 18:10: APTT 64.8 H 01/06/21 00:20: APTT 59.2 H 01/06/21 01:07: POC Glucose 218 H 01/06/21 04:45: WBC 5.6, RBC 4.13 L, Hgb 13.2, Hct 38.7 L, MCV 93.7, MCH 32.0, MCHC 34.1, RDW Std Deviation 50.5 H, RDW Coeff of Paul 14.6, Plt Count 168, MPV 10.2, Immature Gran % (Auto) 0.400, Neut % (Auto) 87.3 H, Lymph % (Auto) 5.5 L, [place] % (Auto) 6.6, Eos % (Auto) 0.0, Baso % (Auto) 0.2, Absolute Neuts (auto) 4.9, Absolute Lymphs (auto) 0.31 L, Nucleated RBC % 0, Differential Comment SCANNED 01/06/21 04:45: Sodium 137, Potassium 4.2, Chloride 105, Carbon Dioxide 25.0, Anion Gap 7, BUN 29 H, Creatinine 0.62 L, Estim Creat Clear Calc 65.90, Est GFR (MDRD) Af Amer 163, Est GFR (MDRD) Non-Af 134, BUN/Creatinine Ratio 46.8 H, Glucose 248 H, Calcium 6.5 L*, Total Bilirubin 0.80, AST 51 H, ALT 27, Alkaline Phosphatase 84, Total Protein 5.2 L, Albumin 1.8 L, Globulin 3.4, Albumin/ Globulin Ratio 0.5 L 01/06/21 04:45: APTT Cancelled, D-Dimer Quant (PE/DVT) Cancelled 01/06/21 05:50: APTT > 250.0 H*, D-Dimer Quant (PE/DVT) 4.96 H* Current Medications Acetaminophen (Acetaminophen 325 Mg Tablet) 650 mg PO Q6H PRN PRN PRN Reason: Pain Score 1-10/Temp > 100.7 F Chlorhexidine Gluconate (Chlorhexidine 15 Ml) 15 ml PO BID [facility] Last Admin: 01/06/21 08:30 Dose: 15 ml Documented by: Chlorhexidine Gluconate (Chlorhexidine Gluc 2% Cloth 1 Each [place]) 1 each TOPICAL DAILY SIMONE Last Admin: 01/06/21 08:29 Dose: 1 each Documented by: Dexamethasone Sodium Phosphate (Dexamethasone 10 Mg/Ml Vial) 6 mg IV DAILY SIMONE Last Admin: 01/06/21 08:30 Dose: 6 mg Documented by: Dextrose (Dextrose 50%-Water 25 Gm/50 Ml Disp.Syrin) 0 gm IV X1 PRN; Protocol PRN Reason: Hypoglycemia Famotidine (Famotidine 20 Mg Tablet) 20 mg GT BID SIMONE Last Admin: 01/06/21 08:30 Dose: 20 mg Documented by: Glucagon (Glucagon 1 Mg/Ml Syringe) 1 mg IM .X1 PRN PRN Reason: Hypoglycemia Heparin Sodium (Porcine) (Heparin Injection (Vial) 5,000 Unit/Ml Vial) 0 unit IV UD PRN; Protocol PRN Reason: dose adjustment Last Admin: 01/05/21 11:51 Dose: 1,000 unit Documented by: Fentanyl Citrate 1,000 mcg/ (Sodium Chloride) 100 mls @ 5 mls/hr CONT INF .Q20H [facility]; Protocol Last Titration: 01/06/21 11:00 Dose: 150 mcg/hr, 15 mls/hr Documented by: Heparin Sodium/Dextrose () 25,000 units in 250 mls @ 15 mls/hr IV .[id number] [facility]; Protocol Last Titration: 01/06/21 09:00 Dose: 1,000 units/hr, 10 mls/hr Documented by: Remdesivir 100 mg/ Sodium (Chloride) 250 mls @ 125 mls/hr IV DAILY@2200 SIMONE Stop: 01/13/21 23:59 Last Infusion: 01/06/21 00:39 Dose: Infused Documented by: Propofol (Diprivan) 1,000 mg in 100 mls @ 6.738 mls/hr CONT INF .Q12H [facility]; Protocol Last Titration: 01/06/21 11:00 Dose: 25 mcg/kg/min, 16.8 mls/hr Documented by: Enteral Nutritional Formula (Vital High Protein) 1,000 mls @ 70 mls/hr GT .[id number] [facility] Last Admin: 01/06/21 01:11 Dose: Not Given Documented by: Insulin Human Lispro (Insulin Lispro 100 Unit/Ml Insuln.Pen) 0 unit SC Q6 SIMONE; Protocol Last Admin: 01/06/21 05:53 Dose: 4 u Documented by: Polyethylene Glycol (Polyethylene Glycol 3350 17 Gm Packet) 17 gm GT DAILY SIMONE Senna/Docusate Sodium (Senna/Docusate Sodium 1 Tablet) 2 tablet GT BID SIMONE Sodium Chloride (0.9% Saline Lock 10 Ml Syringe) 10 - 40 ml IV UD PRN PRN Reason: SALINE FLUSH Last Admin: 01/06/21 08:34 Dose: 40 ml Documented by: STROKE Vital Signs/Narrative: Vital Signs Temp Pulse Resp BP Pulse Ox 01/06/21 11:00 104 H 25 H 180/90 H 90 01/06/21 10:00 37.0 C 78 17 135/62 H 91 01/06/21 09:43 32 H 01/06/21 09:00 102 H 29 H 167/74 H 87 01/06/21 08:00 36.7 C 60 14 125/66 H 92 01/06/21 07:57 57 L Medical Necessity - Tobacco Use Smoking Status: Former smoker Tobacco Use: Cigarettes Assessment/Plan All Active Problems Acute hypoxemic respiratory failure (Acute) Metabolic acidosis (Acute) Airway intubation performed without difficulty (Acute) COVID-19 (Acute) ARDS (adult respiratory distress syndrome) (Acute) 1. acute hypoxic and hypercapnic respiratory failure * 2/2 COVID 19 pneumonia, ARDS +/- PE * on vent * treat the underlying processes * CCM following * CTA did not have adequate vessel visualization, so could not rule out small PE, therefore on anticoagulation given high D-dimer, which has trended down. IMPROVE VTE score is only 1%, so if VTE can definitively be ruled out, would not require anticoagulation upon discharge (unless required for other reason). * Sputum with 2+ staph aureus. Start vancomycin. Follow up culture. * Possible diuretics 01/07 per [facility] 2. acute COVID-19 pneumonia * on dexa and rem-d * ID consultation 3. ARDS * 2/2 COVID 19 * prone as able 4. Suspected Cytokine release syndrome * grade 3 * 2/2 COVID 19 5. Possible PE * CTA could not rule out PE, certainly no large PE, but cannot rule out small PE. * on heparin gtt, consider change to therapeutic enoxaparin 6. DM2 * fair control * on SSI 7. VTE prophylaxis: anticoagulated. Inpatient E&M: [id number] [facility] L[facility]
[2021-01-06] MEDS: Propofol 10MG/Ml 1,000 MG/100 ML Bottle 20.2 MG CONT INF ×3 (12:00→19:55)
[2021-01-06 12:30] LABS: Bedside Glucose 205 mg/dL (70-110)
--- NOTE | 2021-01-06 13:52 | PCM.RX.CS ---
Consult Pharmacy has been consulted to manage selected antiobiotic: Vancomycin Type of Consult: New start Suspected Infection: Pneumonia Labs: Sodium 137 mmol/L (136-145) 01/06/21 04:45 Potassium 4.2 mmol/L (3.5-5.1) 01/06/21 04:45 Chloride 105 mmol/L (98-107) 01/06/21 04:45 Carbon Dioxide 25.0 mmol/L (21.0-32.0) 01/06/21 04:45 Anion Gap 7 (5-15) 01/06/21 04:45 BUN 29 mg/dL (7-18) H 01/06/21 04:45 Creatinine 0.62 mg/dL (0.70-1.30) L 01/06/21 04:45 Est GFR (MDRD) Af Amer 163 mL/min (>60) 01/06/21 04:45 Est GFR (MDRD) Non-Af 134 mL/min (>60) 01/06/21 04:45 BUN/Creatinine Ratio 46.8 RATIO (10-20) H 01/06/21 04:45 Glucose 248 mg/dL (74-106) H 01/06/21 04:45 Microbiology: Microbiology 01/05/21 06:45 Sputum, Induced/Lukens Gram Stain - Final 01/05/21 06:45 Sputum, Induced/Lukens Respiratory Culture - Preliminary Staphylococcus species 01/04/21 14:54 Mucosa - Nose SARS-CoV-2 Antigen (Rapid) - Final SARS-CoV-2 (COVID 19) Goal Trough: 15-20 mcg/mL Pharmacy Plan for Drug Dosing: NEW START IV VANCOMYCIN Consulting Physician: Dr. Leyva Indication: Pneumonia Goal Trough: 15-20 SrCr: 0.62 CrCl: 66 mL/min Comments: Loading dose 2g IV X1 ordered and administered 01/06/21 @1255 Vancomcyin Dose: 1500mg IV Q12hr to start 01/07/21 @0100 Pending Level: 01/08/21 @0030 prior to 4th total dose per protocol Pharmacy Service will continue to monitor and adjust dosing as required.
[2021-01-06] MEDS: Vital High Protein 1,000 ML 70 ML GT (15:16)
[2021-01-06 15:38] LABS: Partial Thromboplast Time 39.3 Seconds (24.1-36.2)
[2021-01-06] MEDS: Heparin Injection (Vial) 5,000 UNIT/ML VIAL IV (16:00)
[2021-01-06 17:36] LABS: Bedside Glucose 216 mg/dL (70-110)
[2021-01-06] MEDS: Senna/Docusate Sodium 1 Tablet 2 TABLET GT (22:49)
[2021-01-06 23:44] LABS: Partial Thromboplast Time 85.5 Seconds (24.1-36.2)
[2021-01-07] VITALS (34 sets, daily range): BP systolic 120–169; BP diastolic 57–104; PULSE 63–90; RESP 12–21; TEMP 36.8–37.2; O2SAT 86–93
[2021-01-07] MEDS: Insulin Lispro 100 UNIT/ML INSULN.PEN SC ×4 (01:10→16:24)
[2021-01-07] MEDS: Propofol 10MG/Ml 1,000 MG/100 ML Bottle 13.5 MG CONT INF ×4 (01:13→22:34)
[2021-01-07 01:51] LABS: Bedside Glucose 218 mg/dL (70-110)
[2021-01-07 05:05] LABS: Absolute Neutrophil Count 8.7 X10^3/uL (2.0-7.7); Basophil# 0.03 X10^3/uL; Basophil% 0.3 % (0-1); Hematocrit 44.8 % (40-54); Hemoglobin 14.3 g/dL (13.0-16.5); Lymphocyte % 4.9 % (19-41); Mean Corp Hgb Conc 31.9 g/dL (32-36); Mean Corpuscular Volume 97.2 fL (80-94); Monocyte# 0.78 X10^3/uL; Monocyte% 7.6 % (0-10); NRBC Flagged by Analyzer 0 % (0-5); Neutrophil # 8.74 X10^3/uL (2.7-7.7); Neutrophil % 85.7 % (47-70); POSITIVE DIFFERENTIAL YES; Platelet Count 199 K/mm3 (150-450); RBC Distribution Width CV 14.7 % (11.6-14.6); RBC Distribution Width SD 52.7 fl (35.1-43.9); Red Blood Count 4.61 M/mm3 (4.6-6.2); White Blood Count 10.2 K/mm3 (4.4-11.0)
[2021-01-07 05:14] LABS: Differential Indicated SCAN CRITERIA MET
[2021-01-07 05:15] LABS: Partial Thromboplast Time 58.1 Seconds (24.1-36.2)
[2021-01-07 05:47] LABS: ALB/GLOB Ratio 0.6 RATIO (0.9-2.4); AST(SGOT) 47 U/L (15-37); Alanine Aminotransfer ALT/SGPT 34 U/L (16-61); Alkaline Phosphatase 103 U/L (45-117); Anion Gap 5 (5-15); BUN 33 mg/dL (7-18); BUN/Creat Ratio 51.1 RATIO (10-20); Calcium,Total 7.3 mg/dL (8.5-10.1); Chloride 106 mmol/L (98-107); Creatinine, Serum 0.65 mg/dL (0.70-1.30); EST Glomerular Filtration Rate 128 mL/min (>60); Est Glom Filt Rate - Afr Amer 155 mL/min (>60); Globulin 3.5 g/dL (2.2-4.2); Glucose 256 mg/dL (74-106); Potassium 4.8 mmol/L (3.5-5.1); Protein, Total 5.5 g/dL (6.4-8.2); Sodium Level 137 mmol/L (136-145)
[2021-01-07] MEDS: Vital High Protein 1,000 ML 70 ML GT ×2 (06:39→21:34)
[2021-01-07] MEDS: Furosemide 40 MG/4 ML Vial IV (07:00)
--- NOTE | 2021-01-07 07:09 | PN_ITS ---
Subjective: Patient did okay overnight. Patient is tolerating tube feeds and doing well. Patient did have a bowel movement this morning. Oxygen has been able to be decreased, but PEEP remains at 10. Patient did become agitated and desaturate with spontaneous awakening trial this morning. General: - - RASS -1. Good vent synchrony. HEENT: Atraumatic, PERRLA, EOMI, Normocephalic, - - No scleral icterus or injection noted Oral: Moist Mucosa, No Gingival or Mucosal Lesions/ Ulcerations Neck: Supple, No JVD, No Nodes, Trachea Midline Lungs: No rhonchi, No wheeze, No rales, Diminished Cardiovascular: Regular rate, Regular Rhythm, Normal S1, Normal S2, No murmurs, No rub noted, No Gallop Abdomen: Bowel Sounds Present, Soft, Non Tender, Non-Distended Extremities: No clubbing, No cyanosis, Edema - Anasarca Skin: - - Ecchymosis noted left anterior leg Musculoskeletal: No Tenderness to Palpation of Joints or Extremities Lymphatic: No Cervical, Supraclavicular, or Inguinal Adenopathy Neurological: Cranial nerves II-XII grossly intact, Neuro grossly intact, Motor Exam 5/5 strength throughout Psych/Mental Status: Normal Affect, Appropriate Vital Signs Temp Pulse Resp BP Pulse Ox 36.9 C 66 12 134/60 H 91 01/07/21 04:00 01/07/21 06:00 01/07/21 06:00 01/07/21 06:00 01/07/21 06:00 Oxygen Flow Rate (L/min) 4 Oxygen Delivery Method Mechanical Ventilator Weight: 115.3 kg Body Mass Index (BMI) 35.4 Intake and Output for Last 24 Hours 01/05/21 01/06/21 01/07/21 23:59 23:59 23:59 Intake Total 1034.44 / 1154.54 3461.75 / 3697.95 1338.41 / 1338.41 Output Total 1160 / 1235 1245 / 1370 525 / 525 Balance -125.56 / -80.46 2216.75 / 2327.95 813.41 / 813.41 Labs (Last 48 Hours) 01/05/21 01/05/21 01/05/21 02:30 11:10 11:25 WBC RBC Hgb Hct MCV MCH MCHC RDW Std Deviation RDW Coeff of Paul Plt Count MPV Immature Gran % (Auto) Neut % (Auto) Lymph % (Auto) [place] % (Auto) Eos % (Auto) Baso % (Auto) Absolute Neuts (auto) Absolute Lymphs (auto) Nucleated RBC % Differential Comment Diff Path Review Reviewed APTT 53.7 H D-Dimer Quant (PE/DVT) Sodium Potassium Chloride Carbon Dioxide Anion Gap BUN Creatinine Estim Creat Clear Calc Est GFR (MDRD) Af Amer Est GFR (MDRD) Non-Af BUN/Creatinine Ratio Glucose Calcium Total Bilirubin AST ALT Alkaline Phosphatase Total Protein Albumin Globulin Albumin/Globulin Ratio POC Glucose 146 H 01/05/21 01/05/21 01/06/21 17:57 18:10 00:20 WBC RBC Hgb Hct MCV MCH MCHC RDW Std Deviation RDW Coeff of Paul Plt Count MPV Immature Gran % (Auto) Neut % (Auto) Lymph % (Auto) [place] % (Auto) Eos % (Auto) Baso % (Auto) Absolute Neuts (auto) Absolute Lymphs (auto) Nucleated RBC % Differential Comment Diff Path Review APTT 64.8 H 59.2 H D-Dimer Quant (PE/DVT) Sodium Potassium Chloride Carbon Dioxide Anion Gap BUN Creatinine Estim Creat Clear Calc Est GFR (MDRD) Af Amer Est GFR (MDRD) Non-Af BUN/Creatinine Ratio Glucose Calcium Total Bilirubin AST ALT Alkaline Phosphatase Total Protein Albumin Globulin Albumin/Globulin Ratio POC Glucose 211 H 01/06/21 01/06/21 01/06/21 01:07 04:45 04:45 WBC 5.6 RBC 4.13 L Hgb 13.2 Hct 38.7 L MCV 93.7 MCH 32.0 MCHC 34.1 RDW Std Deviation 50.5 H RDW Coeff of Paul 14.6 Plt Count 168 MPV 10.2 Immature Gran % (Auto) 0.400 Neut % (Auto) 87.3 H Lymph % (Auto) 5.5 L [place] % (Auto) 6.6 Eos % (Auto) 0.0 Baso % (Auto) 0.2 Absolute Neuts (auto) 4.9 Absolute Lymphs (auto) 0.31 L Nucleated RBC % 0 Differential Comment SCANNED Diff Path Review APTT D-Dimer Quant (PE/DVT) Sodium 137 Potassium 4.2 Chloride 105 Carbon Dioxide 25.0 Anion Gap 7 BUN 29 H Creatinine 0.62 L Estim Creat Clear Calc 65.90 Est GFR (MDRD) Af Amer 163 Est GFR (MDRD) Non-Af 134 BUN/Creatinine Ratio 46.8 H Glucose 248 H Calcium 6.5 L* Total Bilirubin 0.80 AST 51 H ALT 27 Alkaline Phosphatase 84 Total Protein 5.2 L Albumin 1.8 L Globulin 3.4 Albumin/Globulin Ratio 0.5 L POC Glucose 218 H 01/06/21 01/06/21 01/06/21 04:45 05:50 12:14 WBC RBC Hgb Hct MCV MCH MCHC RDW Std Deviation RDW Coeff of Paul Plt Count MPV Immature Gran % (Auto) Neut % (Auto) Lymph % (Auto) [place] % (Auto) Eos % (Auto) Baso % (Auto) Absolute Neuts (auto) Absolute Lymphs (auto) Nucleated RBC % Differential Comment Diff Path Review APTT Cancelled > 250.0 H* D-Dimer Quant (PE/DVT) Cancelled 4.96 H* Sodium Potassium Chloride Carbon Dioxide Anion Gap BUN Creatinine Estim Creat Clear Calc Est GFR (MDRD) Af Amer Est GFR (MDRD) Non-Af BUN/Creatinine Ratio Glucose Calcium Total Bilirubin AST ALT Alkaline Phosphatase Total Protein Albumin Globulin Albumin/Globulin Ratio POC Glucose 205 H 01/06/21 01/06/21 01/06/21 15:15 17:20 23:10 WBC RBC Hgb Hct MCV MCH MCHC RDW Std Deviation RDW Coeff of Paul Plt Count MPV Immature Gran % (Auto) Neut % (Auto) Lymph % (Auto) Coryell % (Auto) Eos % (Auto) Baso % (Auto) Absolute Neuts (auto) Absolute Lymphs (auto) Nucleated RBC % Differential Comment Diff Path Review APTT 39.3 H 85.5 H D-Dimer Quant (PE/DVT) Sodium Potassium Chloride Carbon Dioxide Anion Gap BUN Creatinine Estim Creat Clear Calc Est GFR (MDRD) Af Amer Est GFR (MDRD) Non-Af BUN/Creatinine Ratio Glucose Calcium Total Bilirubin AST ALT Alkaline Phosphatase Total Protein Albumin Globulin Albumin/Globulin Ratio POC Glucose 216 H 01/07/21 01/07/21 01/07/21 01:05 05:00 05:00 WBC 10.2 RBC 4.61 Hgb 14.3 Hct 44.8 MCV 97.2 H MCH 31.0 MCHC 31.9 L D RDW Std Deviation 52.7 H RDW Coeff of Paul 14.7 H Plt Count 199 MPV 10.0 Immature Gran % (Auto) 1.500 H Neut % (Auto) 85.7 H Lymph % (Auto) 4.9 L Coryell % (Auto) 7.6 Eos % (Auto) 0.0 Baso % (Auto) 0.3 Absolute Neuts (auto) 8.7 H Absolute Lymphs (auto) 0.50 L Nucleated RBC % 0 Differential Comment Diff Path Review APTT D-Dimer Quant (PE/DVT) Sodium 137 Potassium 4.8 Chloride 106 Carbon Dioxide 26.0 Anion Gap 5 BUN 33 H Creatinine 0.65 L Estim Creat Clear Calc 65.90 Est GFR (MDRD) Af Amer 155 Est GFR (MDRD) Non-Af 128 BUN/Creatinine Ratio 51.1 H Glucose 256 H Calcium 7.3 L Total Bilirubin 0.80 AST 47 H ALT 34 Alkaline Phosphatase 103 Total Protein 5.5 L Albumin 2.0 L Globulin 3.5 Albumin/Globulin Ratio 0.6 L POC Glucose 218 H 01/07/21 05:00 WBC RBC Hgb Hct MCV MCH MCHC RDW Std Deviation RDW Coeff of Paul Plt Count MPV Immature Gran % (Auto) Neut % (Auto) Lymph % (Auto) [place] % (Auto) Eos % (Auto) Baso % (Auto) Absolute Neuts (auto) Absolute Lymphs (auto) Nucleated RBC % Differential Comment Diff Path Review APTT 58.1 H D-Dimer Quant (PE/DVT) Sodium Potassium Chloride Carbon Dioxide Anion Gap BUN Creatinine Estim Creat Clear Calc Est GFR (MDRD) Af Amer Est GFR (MDRD) Non-Af BUN/Creatinine Ratio Glucose Calcium Total Bilirubin AST ALT Alkaline Phosphatase Total Protein Albumin Globulin Albumin/Globulin Ratio POC Glucose Microbiology 01/04/21 14:45 Blood Culture (Wb) - Chest Blood Culture - Preliminary No growth in 48 hours. 01/04/21 14:05 Blood Culture (Wb) - Anticubital Left Blood Culture - Preliminary No growth in 48 hours. 01/05/21 06:45 Sputum, Induced/Lukens Gram Stain - Final 01/05/21 06:45 Sputum, Induced/Lukens Respiratory Culture - Preliminary Staphylococcus species Medical Necessity - Tobacco Use Smoking Status: Former smoker Tobacco Use: Cigarettes Assessment/Plan All Active Problems Acute hypoxemic respiratory failure (Acute) Metabolic acidosis (Acute) Airway intubation performed without difficulty (Acute) COVID-19 (Acute) ARDS (adult respiratory distress syndrome) (Acute) RECOMMENDATIONS: 1. Continue GI prophylaxis, bowel regimen and tube feeds as tolerated 2. Diuretic challenge today 3. Wean PEEP and FiO2 as tolerated 4. Spontaneous breathing and awakening trials per protocol 5. Remdesivir per ID. Continue Decadron and anticoagulation 6. Continue empiric antibiotics pending culture results IMPRESSIONS: 1. Acute hypoxic respiratory failure secondary to ARDS secondary to acute COVID-19/staph aureus pneumonia Unclear how much of patient's current oxygen status is secondary to cor pulmonale given low presenting oxygen saturations. Continue to monitor saturations closely. Wean oxygen and PEEP as tolerated. Agree with Decadron. Remdesivir per infectious disease. Patient does have staph aureus growing in sputum culture. Patient is on appropriate antibiotics at this time. Await sensitivities. Okay to continue with remdesivir given liver function. 2. Probable COPD Patient was significant emphysematous changes noted on CT of the chest. This does complicate respiratory status. We will hold on any additional therapy as patient is currently on Decadron. Bronchodilators will be continued. Patient may require mucolytic therapy. 3. Diabetes mellitus type 2/morbid obesity/hyperlipidemia Complicates care, management, recovery and prognosis. Initiate basal Lantus therapy. Okay to continue statin for now. Patient is a full code TIME: 35 minutes critical care time spent addressing patient's acute hypoxic respiratory failure, diabetes mellitus, review of all data and collaboration with care team (5:30 AM to 6:45 AM) [phone]: [id number] Critical care first hour
[2021-01-07] MEDS: CHLORHEXIDINE GLUC 2% CLOTH 1 EACH TOWELETTE TOPICAL (08:22)
[2021-01-07] MEDS: Chlorhexidine 15 ML PO ×2 (08:22→21:34)
[2021-01-07] MEDS: Famotidine 20 MG Tablet GT ×2 (08:23→21:34)
[2021-01-07] MEDS: Senna/Docusate Sodium 1 Tablet 2 TABLET GT ×2 (08:23→21:34)
[2021-01-07] MEDS: Polyethylene Glycol 3350 17 GM PACKET GT (08:23)
[2021-01-07] MEDS: 0.9% Saline Lock 10 ML Syringe IV ×2 (08:24→21:33)
[2021-01-07] MEDS: dexAMETHasone 10 MG/ML Vial 6 MG IV (08:24)
--- NOTE | 2021-01-07 12:04 | PN_ITS ---
Patient Problems: Active and Suspected Problems Acute hypoxemic respiratory failure (Acute) Metabolic acidosis (Acute) Airway intubation performed without difficulty (Acute) COVID-19 (Acute) ARDS (adult respiratory distress syndrome) (Acute) Subjective: Decreased FiO2 PEEP at 10. Agitated during the day, though sleeping well at [facility]. Vitals/I&O's: Vital Signs Temp Pulse Resp BP Pulse Ox 37.1 C 69 12 133/61 H 92 01/07/21 08:00 01/07/21 11:39 01/07/21 11:00 01/07/21 11:00 01/07/21 11:00 Oxygen Flow Rate (L/min) 4 Oxygen Delivery Method Mechanical Ventilator Weight: 115.3 kg Body Mass Index (BMI) 35.4 Intake and Output for Last 24 Hours 01/05/21 01/06/21 01/07/21 23:59 23:59 23:59 Intake Total 1034.44 / 1154.54 3461.75 / 3697.95 2351.41 / 2351.41 Output Total 1160 / 1235 1245 / 1370 930 / 930 Balance -125.56 / -80.46 2216.75 / 2327.95 1421.41 / 1421.41 General: No apparent distress HEENT: Atraumatic, Normocephalic Oral: Moist Mucosa, No Gingival or Mucosal Lesions/ Ulcerations Neck: No Nodes, Thyroid Normal Size and Texture Lungs: Normal air movement, - - coarse breath sounds Cardiovascular: Regular rate, Regular Rhythm, Normal S1, Normal S2 Abdomen: Bowel Sounds Present, Soft, Non Tender, Non-Distended Extremities: No edema, No Calf Tenderness Psych/Mental Status: Normal Affect, Appropriate Microbiology Past 72 Hours 01/05/21 06:45 Sputum, Induced/Lukens Gram Stain - Final 01/05/21 06:45 Sputum, Induced/Lukens Respiratory Culture - Final Staphylococcus aureus 01/04/21 14:45 Blood Culture (Wb) - Chest Blood Culture - Preliminary No growth in 48 hours. 01/04/21 14:05 Blood Culture (Wb) - Anticubital Left Blood Culture - Preliminary No growth in 48 hours. 01/04/21 14:54 Mucosa - Nose SARS-CoV-2 Antigen (Rapid) - Final SARS-CoV-2 (COVID 19) Laboratory Results 01/06/21 12:14: POC Glucose 205 H 01/06/21 15:15: APTT 39.3 H 01/06/21 17:20: POC Glucose 216 H 01/06/21 23:10: APTT 85.5 H 01/07/21 01:05: POC Glucose 218 H 01/07/21 05:00: WBC 10.2, RBC 4.61, Hgb 14.3, Hct 44.8, MCV 97.2 H, MCH 31.0, MCHC 31.9 L D, RDW Std Deviation 52.7 H, RDW Coeff of Paul 14.7 H, Plt Count 199, MPV 10.0, Immature Gran % (Auto) 1.500 H, Neut % (Auto) 85.7 H, Lymph % (Auto) 4.9 L, [place] % (Auto) 7.6, Eos % (Auto) 0.0, Baso % (Auto) 0.3, Absolute Neuts (auto) 8.7 H, Absolute Lymphs (auto) 0.50 L, Nucleated RBC % 0 01/07/21 05:00: Sodium 137, Potassium 4.8, Chloride 106, Carbon Dioxide 26.0, Anion Gap 5, BUN 33 H, Creatinine 0.65 L, Estim Creat Clear Calc 65.90, Est GFR (MDRD) Af Amer 155, Est GFR (MDRD) Non-Af 128, BUN/Creatinine Ratio 51.1 H, Glucose 256 H, Calcium 7.3 L, Total Bilirubin 0.80, AST 47 H, ALT 34, Alkaline Phosphatase 103, Total Protein 5.5 L, Albumin 2.0 L, Globulin 3.5, Albumin/Globulin Ratio 0.6 L 01/07/21 05:00: APTT 58.1 H 01/07/21 11:55: APTT Pending Current Medications Acetaminophen (Acetaminophen 325 Mg Tablet) 650 mg PO Q6H PRN PRN PRN Reason: Pain Score 1-10/Temp > 100.7 F Chlorhexidine Gluconate (Chlorhexidine 15 Ml) 15 ml PO BID [facility] Last Admin: 01/07/21 08:22 Dose: 15 ml Documented by: Chlorhexidine Gluconate (Chlorhexidine Gluc 2% Cloth 1 Each Towelette) 1 each TOPICAL DAILY [facility] Last Admin: 01/07/21 08:22 Dose: 1 each Documented by: Dexamethasone Sodium Phosphate (Dexamethasone 10 Mg/Ml Vial) 6 mg IV DAILY [facility] Last Admin: 01/07/21 08:24 Dose: 6 mg Documented by: Dextrose (Dextrose 50%-Water 25 Gm/50 Ml Disp.Syrin) 0 gm IV X1 PRN; Protocol PRN Reason: Hypoglycemia Famotidine (Famotidine 20 Mg Tablet) 20 mg GT BID [facility] Last Admin: 01/07/21 08:23 Dose: 20 mg Documented by: Glucagon (Glucagon 1 Mg/Ml Syringe) 1 mg IM .X1 PRN PRN Reason: Hypoglycemia Heparin Sodium (Porcine) (Heparin Injection (Vial) 5,000 Unit/Ml Vial) 0 unit IV UD PRN; Protocol PRN Reason: dose adjustment Last Admin: 01/06/21 16:00 Dose: 3,000 unit Documented by: Fentanyl Citrate 1,000 mcg/ (Sodium Chloride) 100 mls @ 5 mls/hr CONT INF .Q20H [facility]; Protocol Last Titration: 01/07/21 11:00 Dose: 150 mcg/hr, 15 mls/hr Documented by: Heparin Sodium/Dextrose () 25,000 units in 250 mls @ 15 mls/hr IV .[id number] [facility]; Protocol Last Titration: 01/07/21 06:00 Dose: 1,100 units/hr, 11 mls/hr Documented by: Remdesivir 100 mg/ Sodium (Chloride) 250 mls @ 125 mls/hr IV DAILY@2200 [facility] Stop: 01/13/21 23:59 Last Infusion: 01/07/21 00:49 Dose: Infused Documented by: Propofol (Diprivan) 1,000 mg in 100 mls @ 6.738 mls/hr CONT INF .Q12H [facility]; Protocol Last Admin: 01/07/21 12:00 Dose: 10 mcg/kg/min, 6.7 mls/hr Documented by: Enteral Nutritional Formula (Vital High Protein) 1,000 mls @ 70 mls/hr GT .[id number] [facility] Last Admin: 01/07/21 06:39 Dose: 70 mls/hr Documented by: Vancomycin IV Pharmacy to Dose (1 ea/ Sodium Chloride) 500 mls @ 250 mls/hr IV PRN PRN; Protocol PRN Reason: Rx to Dose Vancomycin HCl 1,500 mg/ (Sodium Chloride) 530 mls @ 250 mls/hr IV Q12H [facility] Last Infusion: 01/07/21 03:19 Dose: Infused Documented by: Insulin Glargine (Insulin Glargine 100 Units/Ml Pen) 10 units SC DAILY [facility] Last Admin: 01/07/21 08:24 Dose: 10 u Documented by: Insulin Human Lispro (Insulin Lispro 100 Unit/Ml Insuln.Pen) 0 unit SC Q6 [facility]; Protocol Last Admin: 01/07/21 12:00 Dose: 6 u Documented by: Polyethylene Glycol (Polyethylene Glycol 3350 17 Gm Packet) 17 gm GT DAILY [facility] Last Admin: 01/07/21 08:23 Dose: 17 gm Documented by: Senna/Docusate Sodium (Senna/Docusate Sodium 1 Tablet) 2 tablet GT BID [facility] Last Admin: 01/07/21 08:23 Dose: 2 tablet Documented by: Sodium Chloride (0.9% Saline Lock 10 Ml Syringe) 10 - 40 ml IV UD PRN PRN Reason: SALINE FLUSH Last Admin: 01/07/21 08:24 Dose: 40 ml Documented by: STROKE Vital Signs/Narrative: Vital Signs Pulse Resp BP Pulse Ox 01/07/21 11:39 69 01/07/21 11:00 67 12 133/61 H 92 01/07/21 10:00 68 12 135/62 H 92 01/07/21 09:44 66 14 91 01/07/21 09:00 70 12 169/104 H 88 Medical Necessity - Tobacco Use Smoking Status: Former smoker Tobacco Use: Cigarettes Assessment/Plan All Active Problems Acute hypoxemic respiratory failure (Acute) Metabolic acidosis (Acute) Airway intubation performed without difficulty (Acute) COVID-19 (Acute) ARDS (adult respiratory distress syndrome) (Acute) 1. acute hypoxic and hypercapnic respiratory failure * improving FiO2 * 2/2 COVID 19 pneumonia, ARDS +/- PE * on vent * treat the underlying processes * CCM following * CTA did not have adequate vessel visualization, so could not rule out small PE, therefore on anticoagulation given high D-dimer, which has trended down. IMPROVE VTE score is only 1%, so if VTE can definitively be ruled out, would not require anticoagulation upon discharge (unless required for other reason). * Sputum with 2+ MSSA. Start vancomycin. Follow up culture. * Furosemide given 2. acute COVID-19 pneumonia * on dexa and rem-d * ID consultation 3. ARDS * 2/2 COVID 19 * prone as able 4. Possible Cytokine release syndrome * grade 3 * 2/2 COVID 19 5. Possible PE * CTA could not rule out PE, certainly no large PE, but cannot rule out small PE. * on heparin gtt, consider change to therapeutic enoxaparin 6. DM2 * fair control * on SSI 7. VTE prophylaxis: anticoagulated. Inpatient E&M: 22561 Subs Hosp L2
[2021-01-07 12:25] LABS: Bedside Glucose 283 mg/dL (70-110)
[2021-01-07 12:25] LABS: Partial Thromboplast Time 46.9 Seconds (24.1-36.2)
[2021-01-07] MEDS: Heparin Injection (Vial) 5,000 UNIT/ML VIAL IV ×2 (13:45→21:32)
[2021-01-07] MEDS: HEPARIN/D5w 25,000 UNITS 25,000 UNITS/250 ML IV.SOLN. 12 UNITS IV (13:45)
[2021-01-07 16:31] LABS: Bedside Glucose 318 mg/dL (70-110)
[2021-01-07 20:46] LABS: Partial Thromboplast Time 51.3 Seconds (24.1-36.2)
[2021-01-07] MEDS: Nystatin Powder 15gm Bottle 1 APPLIC TOPICAL (21:35)
[2021-01-08] VITALS (34 sets, daily range): BP systolic 117–185; BP diastolic 54–90; PULSE 68–106; RESP 12–90; TEMP 37.1–38.3; O2SAT 86–95
[2021-01-08] MEDS: Insulin Lispro 100 UNIT/ML INSULN.PEN SC ×4 (00:26→17:13)
[2021-01-08 00:45] LABS: Bedside Glucose 278 mg/dL (70-110)
[2021-01-08 03:49] LABS: Absolute Lymphocyte Count 0.35 X10^3/uL (0.83-4.51); Absolute Neutrophil Count 7.1 X10^3/uL (2.0-7.7); Basophil# 0.02 X10^3/uL; Basophil% 0.2 % (0-1); Hematocrit 42.2 % (40-54); Hemoglobin 13.7 g/dL (13.0-16.5); Lymphocyte # 0.35 X10^3/ul (4.0); Lymphocyte % 4.2 % (19-41); Mean Corp Hgb Conc 32.5 g/dL (32-36); Mean Corpuscular Hgb 30.7 pg (27.0-32.0); Mean Corpuscular Volume 94.6 fL (80-94); Mean Platelet Vol. 10.2 fl (6.2-12.0); Monocyte# 0.75 X10^3/uL; NRBC Flagged by Analyzer 0 % (0-5); Neutrophil # 7.12 X10^3/uL (2.7-7.7); Neutrophil % 85.2 % (47-70); POSITIVE DIFFERENTIAL YES; Platelet Count 152 K/mm3 (150-450); RBC Distribution Width CV 14.4 % (11.6-14.6); RBC Distribution Width SD 50.6 fl (35.1-43.9); Red Blood Count 4.46 M/mm3 (4.6-6.2); White Blood Count 8.4 K/mm3 (4.4-11.0)
[2021-01-08 03:52] LABS: Differential Indicated SCAN CRITERIA MET
[2021-01-08] MEDS: Propofol 10MG/Ml 1,000 MG/100 ML Bottle 16.8 MG CONT INF (03:53)
[2021-01-08 03:57] LABS: Partial Thromboplast Time 54.1 Seconds (24.1-36.2)
[2021-01-08 05:25] LABS: ALB/GLOB Ratio 0.6 RATIO (0.9-2.4); AST(SGOT) 43 U/L (15-37); Alanine Aminotransfer ALT/SGPT 38 U/L (16-61); Alkaline Phosphatase 100 U/L (45-117); Anion Gap 3 (5-15); BUN 33 mg/dL (7-18); Calcium,Total 7.5 mg/dL (8.5-10.1); Chloride 110 mmol/L (98-107); Creatinine, Serum 0.62 mg/dL (0.70-1.30); EST Glomerular Filtration Rate 134 mL/min (>60); Est Glom Filt Rate - Afr Amer 162 mL/min (>60); Globulin 3.2 g/dL (2.2-4.2); Glucose 278 mg/dL (74-106); Potassium 4.2 mmol/L (3.5-5.1); Protein, Total 5.2 g/dL (6.4-8.2); Sodium Level 142 mmol/L (136-145)
--- NOTE | 2021-01-08 05:52 | PN_ITS ---
Subjective: The patient was seen and examined at the bedside this morning. Events from the last 24 hours have been reviewed. The patient is currently afebrile, hemodynamically stable and maintaining appropriate oxygen saturations on assist control mode of mechanical ventilation with an FiO2 requirement of 65% and PEEP of 10. The patient remains sedated on both propofol and fentanyl. He is currently tolerating tube feeds without issue. He remains on a continuous heparin infusion as well. The patient remains on antimicrobials, remdesivir and Decadron. Liver and renal function are stable. The patient is currently documented to be overall net +4.8 L for the hospital admission. Objective: The patient's most recent lab work, culture data and imaging studies have all been personally reviewed. Rapid coronavirus antigen testing was positive on January 04. Sputum culture was positive for staph aureus. General: - - Intubated, sedated and mechanically ventilated. HEENT: Atraumatic, Normocephalic Oral: No Gingival or Mucosal Lesions/ Ulcerations, - - Stable appearing endotracheal and OG tubes. Neck: Supple, No Nodes, Trachea Midline Lungs: No rhonchi, No wheeze, No rales, Diminished, Tachypneic Cardiovascular: Regular rate, Regular Rhythm Abdomen: Bowel Sounds Present, Soft, Non Tender Extremities: No clubbing, No cyanosis, Edema Skin: No breakdown Musculoskeletal: No Tenderness to Palpation of Joints or Extremities Lymphatic: No Cervical, Supraclavicular, or Inguinal Adenopathy Neurological: - - The patient remains on sedation. He is only minimally responsive to painful stimuli. Vital Signs Temp Pulse Resp BP Pulse Ox 99.0 F 73 16 140/58 H 90 01/08/21 05:00 01/08/21 05:00 01/08/21 05:00 01/08/21 05:00 01/08/21 05:00 Oxygen Flow Rate (L/min) 4 Oxygen Delivery Method Mechanical Ventilator Weight: 255 lb 8.252 oz Body Mass Index (BMI) 35.4 Intake and Output for Last 24 Hours 01/06/21 01/07/21 01/08/21 23:59 23:59 23:59 Intake Total 3461.75 / 3697.95 4727.39 / 4795.19 1513.66 / 1513.66 Output Total 1245 / 1370 3155 / 3430 620 / 620 Balance 2216.75 / 2327.95 1572.39 / 1365.19 893.66 / 893.66 Labs (Last 48 Hours) 01/06/21 01/06/21 01/06/21 04:45 05:50 12:14 WBC RBC Hgb Hct MCV MCH MCHC RDW Std Deviation RDW Coeff of Paul Plt Count MPV Immature Gran % (Auto) Neut % (Auto) Lymph % (Auto) [place] % (Auto) Eos % (Auto) Baso % (Auto) Absolute Neuts (auto) Absolute Lymphs (auto) Nucleated RBC % Differential Comment SCANNED APTT > 250.0 H* D-Dimer Quant (PE/DVT) 4.96 H* Sodium Potassium Chloride Carbon Dioxide Anion Gap BUN Creatinine Estim Creat Clear Calc Est GFR (MDRD) Af Amer Est GFR (MDRD) Non-Af BUN/Creatinine Ratio Glucose Calcium Total Bilirubin AST ALT Alkaline Phosphatase Total Protein Albumin Globulin Albumin/Globulin Ratio POC Glucose 205 H 01/06/21 01/06/21 01/06/21 15:15 17:20 23:10 WBC RBC Hgb Hct MCV MCH MCHC RDW Std Deviation RDW Coeff of Paul Plt Count MPV Immature Gran % (Auto) Neut % (Auto) Lymph % (Auto) [place] % (Auto) Eos % (Auto) Baso % (Auto) Absolute Neuts (auto) Absolute Lymphs (auto) Nucleated RBC % Differential Comment APTT 39.3 H 85.5 H D-Dimer Quant (PE/DVT) Sodium Potassium Chloride Carbon Dioxide Anion Gap BUN Creatinine Estim Creat Clear Calc Est GFR (MDRD) Af Amer Est GFR (MDRD) Non-Af BUN/Creatinine Ratio Glucose Calcium Total Bilirubin AST ALT Alkaline Phosphatase Total Protein Albumin Globulin Albumin/Globulin Ratio POC Glucose 216 H 01/07/21 01/07/21 01/07/21 01:05 05:00 05:00 WBC 10.2 RBC 4.61 Hgb 14.3 Hct 44.8 MCV 97.2 H MCH 31.0 MCHC 31.9 L D RDW Std Deviation 52.7 H RDW Coeff of Paul 14.7 H Plt Count 199 MPV 10.0 Immature Gran % (Auto) 1.500 H Neut % (Auto) 85.7 H Lymph % (Auto) 4.9 L [place] % (Auto) 7.6 Eos % (Auto) 0.0 Baso % (Auto) 0.3 Absolute Neuts (auto) 8.7 H Absolute Lymphs (auto) 0.50 L Nucleated RBC % 0 Differential Comment APTT D-Dimer Quant (PE/DVT) Sodium 137 Potassium 4.8 Chloride 106 Carbon Dioxide 26.0 Anion Gap 5 BUN 33 H Creatinine 0.65 L Estim Creat Clear Calc 65.90 Est GFR (MDRD) Af Amer 155 Est GFR (MDRD) Non-Af 128 BUN/Creatinine Ratio 51.1 H Glucose 256 H Calcium 7.3 L Total Bilirubin 0.80 AST 47 H ALT 34 Alkaline Phosphatase 103 Total Protein 5.5 L Albumin 2.0 L Globulin 3.5 Albumin/Globulin Ratio 0.6 L POC Glucose 218 H 01/07/21 01/07/21 01/07/21 05:00 11:51 11:55 WBC RBC Hgb Hct MCV MCH MCHC RDW Std Deviation RDW Coeff of Paul Plt Count MPV Immature Gran % (Auto) Neut % (Auto) Lymph % (Auto) [place] % (Auto) Eos % (Auto) Baso % (Auto) Absolute Neuts (auto) Absolute Lymphs (auto) Nucleated RBC % Differential Comment APTT 58.1 H 46.9 H D-Dimer Quant (PE/DVT) Sodium Potassium Chloride Carbon Dioxide Anion Gap BUN Creatinine Estim Creat Clear Calc Est GFR (MDRD) Af Amer Est GFR (MDRD) Non-Af BUN/Creatinine Ratio Glucose Calcium Total Bilirubin AST ALT Alkaline Phosphatase Total Protein Albumin Globulin Albumin/Globulin Ratio POC Glucose 283 H 01/07/21 01/07/21 01/08/21 16:23 20:20 00:22 WBC RBC Hgb Hct MCV MCH MCHC RDW Std Deviation RDW Coeff of Paul Plt Count MPV Immature Gran % (Auto) Neut % (Auto) Lymph % (Auto) [place] % (Auto) Eos % (Auto) Baso % (Auto) Absolute Neuts (auto) Absolute Lymphs (auto) Nucleated RBC % Differential Comment APTT 51.3 H D-Dimer Quant (PE/DVT) Sodium Potassium Chloride Carbon Dioxide Anion Gap BUN Creatinine Estim Creat Clear Calc Est GFR (MDRD) Af Amer Est GFR (MDRD) Non-Af BUN/Creatinine Ratio Glucose Calcium Total Bilirubin AST ALT Alkaline Phosphatase Total Protein Albumin Globulin Albumin/Globulin Ratio POC Glucose 318 H 278 H 01/08/21 01/08/2121 03:30 03:30 03:30 WBC 8.4 RBC 4.46 L Hgb 13.7 Hct 42.2 MCV 94.6 H MCH 30.7 MCHC 32.5 RDW Std Deviation 50.6 H RDW Coeff of Paul 14.4 Plt Count 152 MPV 10.2 Immature Gran % (Auto) 1.400 H Neut % (Auto) 85.2 H Lymph % (Auto) 4.2 L [place] % (Auto) 9.0 Eos % (Auto) 0.0 Baso % (Auto) 0.2 Absolute Neuts (auto) 7.1 Absolute Lymphs (auto) 0.35 L Nucleated RBC % 0 Differential Comment APTT 54.1 H D-Dimer Quant (PE/DVT) Sodium 142 Potassium 4.2 Chloride 110 H Carbon Dioxide 29.0 Anion Gap 3 L BUN 33 H Creatinine 0.62 L Estim Creat Clear Calc 65.90 Est GFR (MDRD) Af Amer 162 Est GFR (MDRD) Non-Af 134 BUN/Creatinine Ratio 53.0 H Glucose 278 H Calcium 7.5 L Total Bilirubin 0.70 AST 43 H ALT 38 Alkaline Phosphatase 100 Total Protein 5.2 L Albumin 2.0 L Globulin 3.2 Albumin/Globulin Ratio 0.6 L POC Glucose Microbiology 01/05/21 06:45 Sputum, Induced/Lukens Gram Stain - Final 01/05/21 06:45 Sputum, Induced/Lukens Respiratory Culture - Final Staphylococcus aureus 01/04/21 14:45 Blood Culture (Wb) - Chest Blood Culture - Preliminary No growth in 48 hours. 01/04/21 14:05 Blood Culture (Wb) - Anticubital Left Blood Culture - Preliminary No growth in 48 hours. Clinical Impression(s) from Imaging Studies Chest X-Ray 01/04/21 14:45 IMPRESSION: Bilateral diffuse pulmonary infiltrates worse in the mid and lower lung regions. The tip of the endotracheal tube is at 6.3 cm proximal to the darrick. The tip of the enteric tube is in the body of the stomach. Electronically Signed: Dustin Antonio MD at 15:06 EST , Service support , Chest CTA 02/18/21 14:58 IMPRESSION: COPD and ASHD with superimposed pulmonary edema and bilateral effusions. Cannot definitively exclude coexisting Covid 19 pneumonia Limited visualization of the distal subsegmental vessels without definitive evidence for pulmonary emboli If strong clinical suspicion for pulmonary embolus DOPPLER scan of the deep venous system of lower extremities recommended Electronically Signed: Pelon Yip MD at 16:29 EST , Service support , Chest X-Ray 01/04/21 23:07 IMPRESSION: Bilateral interstitial prominence and patchy infiltrates similar to previous study. Electronically Signed: Jon Gomez DO at 0:06 EST Tel [phone], Service support , Medical Necessity - Tobacco Use Smoking Status: Former smoker Tobacco Use: Cigarettes Assessment/Plan All Active Problems Acute hypoxemic respiratory failure (Acute) Metabolic acidosis (Acute) Airway intubation performed without difficulty (Acute) COVID-19 (Acute) ARDS (adult respiratory distress syndrome) (Acute) RECOMMENDATIONS: 1. Obtain repeat arterial blood gas this morning. 2. Increase PEEP as needed to maintain oxygen saturations at or above 90%. 3. Obtain repeat chest x-ray. 4. Continue antimicrobials per ID recommendations. 5. Continue remdesivir and Decadron. 6. Administer IV Lasix 40 mg x 1. 7. Continue heparin infusion. 8. Continue tube feeds as tolerated along with appropriate GI prophylaxis. IMPRESSIONS: 1. Acute hypoxemic respiratory failure secondary to combined COVID-19 and staph aureus pneumonia Plan to continue current supportive measures including invasive mechanical ventilatory support with a goal to maintain an oxygen saturation at or above 90%. The patient will be continued on remdesivir to complete treatment course, pending stability and renal and liver function. Continue daily Decadron to complete 10 days of treatment. Antibiotics will be continued per ID recommendations. Given the interval worsening in the patient's oxygenation status, will obtain arterial blood gas this morning along with repeat chest x- ray. IV diuresis will be undertaken as tolerated by hemodynamics and renal function. Continue tube feeds as tolerated. 2. Probable obstructive lung disease of unclear severity Start scheduled bronchodilator therapy. Continue supportive measures as noted above. 3. Obesity/diabetes mellitus/hyperlipidemia Complicates care, management, recovery and prognosis. Continue home medications as indicated. Continue Lantus and sliding scale insulin coverage. TIME: 38 minutes of critical care time, independent of procedures, was spent addressing the patient's acute hypoxemic respiratory failure, COVID-19 pneumonia, staph aureus pneumonia, probable obstructive lung disease, review of all data and collaboration with the care team. [phone]) [id number] Critical care first hour
[2021-01-08 06:00] LABS: Bedside Glucose 263 mg/dL (70-110)
[2021-01-08] MEDS: TITRATION PARAMETER CHANGE 1 EACH IV (07:30)
[2021-01-08] MEDS: Chlorhexidine 15 ML PO ×2 (08:09→21:13)
--- NOTE | 2021-01-08 09:06 | RAD_ITS ---
STUDY: X-RAY CHEST REASON FOR EXAM: Male, 75 years old. Worsening resp failure TECHNIQUE: Single AP portable view of the chest. COMPARISON: Comparison is made with prior examination dated 01/04/2021 FINDINGS: An endotracheal tube is in situ. The tip is at 4.7 cm proximal to the darrick. An orogastric tube is seen with the tip in the body of the stomach. EKG electrodes are seen. Since prior study, there has been progressive bilateral pulmonary infiltrates worse in the left hemithorax. Blunting of the costophrenic angles. Normal size heart. Normal mediastinum and odilon. Normal visualized pulmonary arteries. There is atherosclerotic tortuosity of the aortic arch and descending thoracic aorta. There are diffuse degenerative changes of the visualized thoracic spine. Normal visualized ribs, clavicles, and shoulders. There is no demonstrated abnormality of the visualized soft tissue structures of the upper abdomen. RAD/Chest 1 View (Portable) IMPRESSION: Progressive bilateral pulmonary infiltrates worse in the left hemithorax. The support tubes are in good position. Electronically Signed: Dustin Antonio MD at 13:34 EST , Service support ,
[2021-01-08] MEDS: Furosemide 40 MG/4 ML Vial IV (09:09)
[2021-01-08] MEDS: Propofol 10MG/Ml 1,000 MG/100 ML Bottle 17.4 MG CONT INF (09:11)
[2021-01-08 09:16] LABS: Base Excess 5 mmol/L (-2 to +2); Blood Gas Specimen Type ART; FI02 65; Mode AC; O2 Delivery Device ET Tube; PEEP 10; PO2 56 mmHG (75-100); RR 12; SITE R Radial; SO2 87 % (95-99); Total Carbon Dioxide 32 mmol/L; Vt 450; pCO2 52.4 mmHg (35-45); pH 7.37 (7.35-7.45)
[2021-01-08] MEDS: HEPARIN/D5w 25,000 UNITS 25,000 UNITS/250 ML IV.SOLN. 14 UNITS IV (09:25)
--- NOTE | 2021-01-08 10:16 | CASEMGMT ---
RN CM Assessment Note Introduced role of CM to patient's . was able to participate in ICU interdisciplinary rounds today via phone. Demographics, PCP verified. states the patient was very independent @ home prior to admission. No care needs identified. emotional as patient conditioned has worsened overnight and he is requiring increased oxygen. Emotional support given, questions answered. would like to call in afternoon and evening for update. Presentation: shortness of breath, Diagnosis: COVID-19, respiratory failure COVID testin01/08/21 @ [facility] PCP: Dr. Lisandro Ashley Specialists: none Insurance: [employer] Preferred Pharmacy: [facility] Prescription Benefit: yes LNOK: , Janie Mcallister Living Arrangements: Lives independently @ home with . states bedroom/baths on main floor of home, 2 steps into home from garage, and 4 steps into home from front door. Patient had not required any assistance prior to admission. Tranportation: pt and drive DME: cane only. no oxygen, no cpap. ( states they may have an old walker in basement). RN BENSON did not discuss home oxygen @ this time due to critical nature of 's condition. If home oxygen is required in future, [facility] D[facility] are [facility], [facility]. HHC: none SNF: none Patient DC Goals: home DC Plan: TBD. CM available for discharge planning coordination. Contact CM for any concerns/needs that may arise. Evelyn MCCALLUM RN ACM
[2021-01-08] MEDS: CHLORHEXIDINE GLUC 2% CLOTH 1 EACH TOWELETTE TOPICAL (10:21)
[2021-01-08] MEDS: Famotidine 20 MG Tablet GT (10:43)
[2021-01-08] MEDS: Senna/Docusate Sodium 1 Tablet 2 TABLET GT (10:43)
[2021-01-08] MEDS: Nystatin Powder 15gm Bottle 1 APPLIC TOPICAL ×2 (10:43→21:13)
[2021-01-08] MEDS: Polyethylene Glycol 3350 17 GM PACKET GT (10:44)
[2021-01-08] MEDS: dexAMETHasone 10 MG/ML Vial 6 MG IV (10:59)
[2021-01-08 11:24] LABS: Partial Thromboplast Time 42.4 Seconds (24.1-36.2)
[2021-01-08] MEDS: Heparin Injection (Vial) 5,000 UNIT/ML VIAL IV (11:28)
[2021-01-08 12:40] LABS: Bedside Glucose 286 mg/dL (70-110)
[2021-01-08] MEDS: Cefazolin 2 GM in 0.9% Normal Saline 100 ML IV ×2 (13:17→21:13)
[2021-01-08] MEDS: Propofol 10MG/Ml 1,000 MG/100 ML Bottle 27.8 MG CONT INF (13:30)
--- NOTE | 2021-01-08 13:49 | PCM.PN.ID ---
Patient Problems: Active and Suspected Problems Acute hypoxemic respiratory failure (Acute) Metabolic acidosis (Acute) Airway intubation performed without difficulty (Acute) COVID-19 (Acute) ARDS (adult respiratory distress syndrome) (Acute) Subjective: On vent, no fever - Physical Exam Vitals/I&O's: Vital Signs Temp Pulse Resp BP Pulse Ox 100.4 F H 101 H 29 H 117/58 L 91 01/08/21 12:00 01/08/21 13:00 01/08/21 13:00 01/08/21 13:00 01/08/21 13:00 Oxygen Flow Rate (L/min) 4 Oxygen Delivery Method Mechanical Ventilator Weight: 115.9 kg Body Mass Index (BMI) 35.4 Intake and Output for Last 24 Hours 01/06/21 01/07/21 01/08/21 23:59 23:59 23:59 Intake Total 3461.75 / 3697.95 4727.39 / 4795.19 1939.69 / 1939.69 Output Total 1245 / 1370 3155 / 3430 2920 / 2920 Balance 2216.75 / 2327.95 1572.39 / 1365.19 -980.31 / -980.31 General: No apparent distress Lungs: Diminished Cardiovascular: Regular rate, Regular Rhythm Abdomen: Soft, Non Tender, Non-Distended Skin: No rashes Microbiology Past 72 Hours 01/05/21 06:45 Sputum, Induced/Lukens Gram Stain - Final 01/05/21 06:45 Sputum, Induced/Lukens Respiratory Culture - Final Staphylococcus aureus 01/04/21 14:45 Blood Culture (Wb) - Chest Blood Culture - Preliminary No growth in 48 hours. 01/04/21 14:05 Blood Culture (Wb) - Anticubital Left Blood Culture - Preliminary No growth in 48 hours. Laboratory Results 01/07/21 16:23: POC Glucose 318 H 01/07/21 20:20: APTT 51.3 H 01/08/21 00:22: POC Glucose 278 H 01/08/21 03:30: WBC 8.4, RBC 4.46 L, Hgb 13.7, Hct 42.2, MCV 94.6 H, MCH 30.7, MCHC 32.5, RDW Std Deviation 50.6 H, RDW Coeff of Paul 14.4, Plt Count 152, MPV 10.2, Immature Gran % (Auto) 1.400 H, Neut % (Auto) 85.2 H, Lymph % (Auto) 4.2 L, [place] % (Auto) 9.0, Eos % (Auto) 0.0, Baso % (Auto) 0.2, Absolute Neuts (auto) 7.1, Absolute Lymphs (auto) 0.35 L, Nucleated RBC % 0 01/08/21 03:30: Sodium 142, Potassium 4.2, Chloride 110 H, Carbon Dioxide 29.0, Anion Gap 3 L, BUN 33 H, Creatinine 0.62 L, Estim Creat Clear Calc 65.90, Est GFR (MDRD) Af Amer 162, Est GFR (MDRD) Non-Af 134, BUN/Creatinine Ratio 53.0 H, Glucose 278 H, Calcium 7.5 L, Total Bilirubin 0.70, AST 43 H, ALT 38, Alkaline Phosphatase 100, Total Protein 5.2 L, Albumin 2.0 L, Globulin 3.2, Albumin/Globulin Ratio 0.6 L 01/08/21 03:30: APTT 54.1 H 01/08/21 05:41: POC Glucose 263 H 01/08/21 09:09: Specimen Type ART, Sample Site R Radial, pH 7.37, Bicarbonate Actual 30.0 H, Total CO2 32, Base Excess 5 H, O2 Saturation 87 L, O2 % 65, ABG pCO2 52.4 H, ABG pO2 56 L, Respiration Rate 12, O2 Delivery Device ET Tube, Vent Mode AC, Tidal Volume 450, POC PEEP 10 01/08/21 10:55: APTT 42.4 H 01/08/21 12:05: POC Glucose 286 H Current Medications Acetaminophen (Acetaminophen 325 Mg Tablet) 650 mg PO Q6H PRN PRN PRN Reason: Pain Score 1-10/Temp > 100.7 F Albuterol/Ipratropium (Ipratropium/Albuterol Sulfate 3 Ml Ampul.Neb) 3 ml INHALATION Q6H.RT SIMONE Chlorhexidine Gluconate (Chlorhexidine 15 Ml) 15 ml PO BID SIMONE Last Admin: 01/08/21 08:09 Dose: 15 ml Documented by: Chlorhexidine Gluconate (Chlorhexidine Gluc 2% Cloth 1 Each [place]) 1 each TOPICAL DAILY SIMONE Last Admin: 01/08/21 10:21 Dose: 1 each Documented by: Dexamethasone Sodium Phosphate (Dexamethasone 10 Mg/Ml Vial) 6 mg IV DAILY [facility] Stop: 01/13/21 10:01 Last Admin: 01/08/21 10:59 Dose: 6 mg Documented by: Dextrose (Dextrose 50%-Water 25 Gm/50 Ml Disp.Syrin) 0 gm IV X1 PRN; Protocol PRN Reason: Hypoglycemia Famotidine (Famotidine 20 Mg Tablet) 20 mg GT BID [facility] Last Admin: 01/08/21 10:43 Dose: 20 mg Documented by: Glucagon (Glucagon 1 Mg/Ml Syringe) 1 mg IM .X1 PRN PRN Reason: Hypoglycemia Heparin Sodium (Porcine) (Heparin Injection (Vial) 5,000 Unit/Ml Vial) 0 unit IV UD PRN; Protocol PRN Reason: dose adjustment Last Admin: 01/08/21 11:28 Dose: 1,000 unit Documented by: Fentanyl Citrate 1,000 mcg/ (Sodium Chloride) 100 mls @ 5 mls/hr CONT INF .Q20H [facility]; Protocol Last Titration: 01/08/21 13:00 Dose: 125 mcg/hr, 12.5 mls/hr Documented by: Heparin Sodium/Dextrose () 25,000 units in 250 mls @ 15 mls/hr IV .[id number] [facility]; Protocol Last Titration: 01/08/21 13:00 Dose: 1,500 units/hr, 15 mls/hr Documented by: Remdesivir 100 mg/ Sodium (Chloride) 250 mls @ 125 mls/hr IV DAILY@2200 SIMONE Stop: 01/13/21 23:59 Last Infusion: 01/07/21 23:45 Dose: Infused Documented by: Propofol (Diprivan) 1,000 mg in 100 mls @ 6.954 mls/hr CONT INF .Q12H [facility]; Protocol Last Admin: 01/08/21 13:30 Dose: 40 mcg/kg/min, 27.8 mls/hr Documented by: Enteral Nutritional Formula (Vital High Protein) 1,000 mls @ 70 mls/hr GT .[id number] [facility] Last Admin: 01/08/21 10:44 Dose: Not Given Documented by: Cefazolin Sodium 2 gm/ Sodium (Chloride) 110 mls @ 150 mls/hr IV Q8 [facility] Last Admin: 01/08/21 13:17 Dose: 150 mls/hr Documented by: Insulin Glargine (Insulin Glargine 100 Units/Ml Pen) 15 units SC DAILY [facility] Last Admin: 01/08/21 10:44 Dose: 15 u Documented by: Insulin Human Lispro (Insulin Lispro 100 Unit/Ml Insuln.Pen) 0 unit SC Q6 SIMONE; Protocol Last Admin: 01/08/21 12:06 Dose: 6 u Documented by: Nystatin (Nystatin Powder 15gm Bottle) 1 applic TOPICAL BID SIMONE; Protocol Last Admin: 01/08/21 10:43 Dose: 1 applicatio Documented by: Polyethylene Glycol (Polyethylene Glycol 3350 17 Gm Packet) 17 gm GT DAILY [facility] Last Admin: 01/08/21 10:44 Dose: 17 gm Documented by: Senna/Docusate Sodium (Senna/Docusate Sodium 1 Tablet) 2 tablet GT BID [facility] Last Admin: 01/08/21 10:43 Dose: 2 tablet Documented by: Sodium Chloride (0.9% Saline Lock 10 Ml Syringe) 10 - 40 ml IV UD PRN PRN Reason: SALINE FLUSH Last Admin: 01/07/21 21:33 Dose: 30 ml Documented by: Medical Necessity - Tobacco Use Smoking Status: Former smoker Tobacco Use: Cigarettes Route of nutrition/ use of supplements: [] Nutritional Intake: [] IV Site: [] Abdi Catheter: [] - Assessment/Plan Antibiotics: [] Assessment/Plan: [] Active and Suspected Problems Acute hypoxemic respiratory failure (Acute) Metabolic acidosis (Acute) Airway intubation performed without difficulty (Acute) COVID-19 (Acute) ARDS (adult respiratory distress syndrome) (Acute) covid with hypoxia and resp failure - on dex, remdesivir, hep gtt. Sx started 12/26/20 reportedly. Sputum with mssa, will narrow abx to cefazolin. Will follow
[2021-01-08] MEDS: Ipratropium/Albuterol Sulfate 3 ML AMPUL.NEB INHALATION ×2 (13:51→19:19)
[2021-01-08] MEDS: Vital High Protein 1,000 ML 70 ML GT (17:01)
[2021-01-08] MEDS: Propofol 10MG/Ml 1,000 MG/100 ML Bottle 24.3 MG CONT INF (17:30)
[2021-01-08 17:39] LABS: Partial Thromboplast Time 57.8 Seconds (24.1-36.2)
--- NOTE | 2021-01-08 18:19 | PCM.PROGNOTE ---
Patient Problems: Active and Suspected Problems Acute hypoxemic respiratory failure (Acute) Metabolic acidosis (Acute) Airway intubation performed without difficulty (Acute) COVID-19 (Acute) ARDS (adult respiratory distress syndrome) (Acute) Subjective: Patient was seen and examined today, only on 100% oxygen with PEEP on the ventilator. Patient is sedated and on the ventilator - Physical Exam Vitals/I&O's: Vital Signs Temp Pulse Resp BP Pulse Ox 100.2 F H 105 H 20 H 133/58 H 92 01/08/21 16:00 01/08/21 17:05 01/08/21 17:05 01/08/21 17:00 01/08/21 17:05 Oxygen Flow Rate (L/min) 4 Oxygen Delivery Method Mechanical Ventilator Weight: 115.9 kg Body Mass Index (BMI) 35.4 Intake and Output for Last 24 Hours 01/06/21 01/07/21 01/08/21 23:59 23:59 23:59 Intake Total 3461.75 / 3697.95 4727.39 / 4795.19 2820.85 / 2820.85 Output Total 1245 / 1370 3155 / 3430 3270 / 3270 Balance 2216.75 / 2327.95 1572.39 / 1365.19 -449.15 / -449.15 General: - - Patient is sedated and on the ventilator HEENT: Atraumatic, PERRLA, Normocephalic Oral: Moist Mucosa Neck: Supple, No JVD, No Nuchal Rigidity, Trachea Midline, Thyroid Normal Size and Texture Lungs: Clear to auscultation, Normal air movement, No rhonchi, No wheeze, No rales Cardiovascular: Regular rate, Regular Rhythm, Normal S1, Normal S2, No murmurs, No Ectopic Activity, PMI Normal, No rub noted, No Gallop Abdomen: Bowel Sounds Present, Soft, Non Tender, Non-Distended Extremities: No clubbing, No cyanosis, Capillary Refill Less than 3 Seconds, Edema - Mild pretibial edema is noted bilaterally Skin: No rashes, No breakdown Musculoskeletal: No Tenderness to Palpation of Joints or Extremities Neurological: - - Patient is sedated and on the ventilator Psych/Mental Status: - Microbiology Past 72 Hours 01/05/21 06:45 Sputum, Induced/Lukens Gram Stain - Final 01/05/21 06:45 Sputum, Induced/Lukens Respiratory Culture - Final Staphylococcus aureus 01/04/21 14:45 Blood Culture (Wb) - Chest Blood Culture - Preliminary No growth in 48 hours. 01/04/21 14:05 Blood Culture (Wb) - Anticubital Left Blood Culture - Preliminary No growth in 48 hours. Laboratory Results 01/07/21 20:20: APTT 51.3 H 01/08/21 00:22: POC Glucose 278 H 01/08/21 03:30: WBC 8.4, RBC 4.46 L, Hgb 13.7, Hct 42.2, MCV 94.6 H, MCH 30.7, MCHC 32.5, RDW Std Deviation 50.6 H, RDW Coeff of Paul 14.4, Plt Count 152, MPV 10.2, Immature Gran % (Auto) 1.400 H, Neut % (Auto) 85.2 H, Lymph % (Auto) 4.2 L, [place] % (Auto) 9.0, Eos % (Auto) 0.0, Baso % (Auto) 0.2, Absolute Neuts (auto) 7.1, Absolute Lymphs (auto) 0.35 L, Nucleated RBC % 0 01/08/21 03:30: Sodium 142, Potassium 4.2, Chloride 110 H, Carbon Dioxide 29.0, Anion Gap 3 L, BUN 33 H, Creatinine 0.62 L, Estim Creat Clear Calc 65.90, Est GFR (MDRD) Af Amer 162, Est GFR (MDRD) Non-Af 134, BUN/Creatinine Ratio 53.0 H, Glucose 278 H, Calcium 7.5 L, Total Bilirubin 0.70, AST 43 H, ALT 38, Alkaline Phosphatase 100, Total Protein 5.2 L, Albumin 2.0 L, Globulin 3.2, Albumin/Globulin Ratio 0.6 L 01/08/21 03:30: APTT 54.1 H 01/08/21 05:41: POC Glucose 263 H 01/08/21 09:09: Specimen Type ART, Sample Site R Radial, pH 7.37, Bicarbonate Actual 30.0 H, Total CO2 32, Base Excess 5 H, O2 Saturation 87 L, O2 % 65, ABG pCO2 52.4 H, ABG pO2 56 L, Respiration Rate 12, O2 Delivery Device ET Tube, Vent Mode AC, Tidal Volume 450, POC PEEP 10 01/08/21 10:55: APTT 42.4 H 01/08/21 12:05: POC Glucose 286 H 01/08/21 17:10: APTT 57.8 H Current Medications Acetaminophen (Acetaminophen 325 Mg Tablet) 650 mg PO Q6H PRN PRN PRN Reason: Pain Score 1-10/Temp > 100.7 F Albuterol/Ipratropium (Ipratropium/Albuterol Sulfate 3 Ml Ampul.Neb) 3 ml INHALATION Q6H.RT SIMONE Last Admin: 01/08/21 13:51 Dose: 3 ml Documented by: Chlorhexidine Gluconate (Chlorhexidine 15 Ml) 15 ml PO BID SIMONE Last Admin: 01/08/21 08:09 Dose: 15 ml Documented by: Chlorhexidine Gluconate (Chlorhexidine Gluc 2% Cloth 1 Each Towelette) 1 each TOPICAL DAILY SIMONE Last Admin: 01/08/21 10:21 Dose: 1 each Documented by: Dexamethasone Sodium Phosphate (Dexamethasone 10 Mg/Ml Vial) 6 mg IV DAILY SIMONE Stop: 01/13/21 10:01 Last Admin: 01/08/21 10:59 Dose: 6 mg Documented by: Dextrose (Dextrose 50%-Water 25 Gm/50 Ml Disp.Syrin) 0 gm IV X1 PRN; Protocol PRN Reason: Hypoglycemia Famotidine (Famotidine 20 Mg Tablet) 20 mg GT BID [facility] [place] Last Admin: 01/08/21 10:43 Dose: 20 mg Documented by: Glucagon (Glucagon 1 Mg/Ml Syringe) 1 mg IM .X1 PRN PRN Reason: Hypoglycemia Heparin Sodium (Porcine) (Heparin Injection (Vial) 5,000 Unit/Ml Vial) 0 unit IV UD PRN; Protocol PRN Reason: dose adjustment Last Admin: 01/08/21 11:28 Dose: 1,000 unit Documented by: Fentanyl Citrate 1,000 mcg/ (Sodium Chloride) 100 mls @ 5 mls/hr CONT INF .Q20H [facility] [place]; Protocol Last Titration: 01/08/21 17:00 Dose: 125 mcg/hr, 12.5 mls/hr Documented by: Heparin Sodium/Dextrose () 25,000 units in 250 mls @ 15 mls/hr IV .[id number] [facility] [place]; Protocol Last Titration: 01/08/21 17:00 Dose: 1,500 units/hr, 15 mls/hr Documented by: Remdesivir 100 mg/ Sodium (Chloride) 250 mls @ 125 mls/hr IV DAILY@2200 [facility] [place] Stop: 01/13/21 23:59 Last Infusion: 01/07/21 23:45 Dose: Infused Documented by: Propofol (Diprivan) 1,000 mg in 100 mls @ 6.954 mls/hr CONT INF .Q12H [facility] [place]; Protocol Last Titration: 01/08/21 17:15 Dose: Infused Documented by: Enteral Nutritional Formula (Vital High Protein) 1,000 mls @ 70 mls/hr GT .[id number] [facility] [place] Last Admin: 01/08/21 17:01 Dose: 70 mls/hr Documented by: Cefazolin Sodium 2 gm/ Sodium (Chloride) 110 mls @ 150 mls/hr IV Q8 [facility] [place] Last Infusion: 01/08/21 14:46 Dose: Infused Documented by: Insulin Glargine (Insulin Glargine 100 Units/Ml Pen) 15 units SC DAILY [facility] [place] Last Admin: 01/08/21 10:44 Dose: 15 u Documented by: Insulin Human Lispro (Insulin Lispro 100 Unit/Ml Insuln.Pen) 0 unit SC Q6 [facility] [place]; Protocol Last Admin: 01/08/21 17:13 Dose: 4 u Documented by: Nystatin (Nystatin Powder 15gm Bottle) 1 applic TOPICAL BID [facility] [place]; Protocol Last Admin: 01/08/21 10:43 Dose: 1 applicatio Documented by: Polyethylene Glycol (Polyethylene Glycol 3350 17 Gm Packet) 17 gm GT DAILY [facility] [place] Last Admin: 01/08/21 10:44 Dose: 17 gm Documented by: Senna/Docusate Sodium (Senna/Docusate Sodium 1 Tablet) 2 tablet GT BID [facility] [place] Last Admin: 01/08/21 10:43 Dose: 2 tablet Documented by: Sodium Chloride (0.9% Saline Lock 10 Ml Syringe) 10 - 40 ml IV UD PRN PRN Reason: SALINE FLUSH Last Admin: 01/07/21 21:33 Dose: 30 ml Documented by: Medical Necessity - Tobacco Use Smoking Status: Former smoker Tobacco Use: Cigarettes Assessment/Plan All Active Problems Acute hypoxemic respiratory failure (Acute) Metabolic acidosis (Acute) Airway intubation performed without difficulty (Acute) COVID-19 (Acute) ARDS (adult respiratory distress syndrome) (Acute) #1 acute hypoxic respiratory failure secondary to COVID-19 pneumonia and staph aureus pneumonia-continue present treatment per critical care medicine, patient's prognosis extremely guarded at this point, continue remdesivir and Decadron #2 type 2 diabetes-continue to monitor blood sugars #3 hyperlipidemia #4 staph aureus pneumonia-infectious diseases is participating in the patient's care Inpatient E&M: 12823 Subs Hosp L2
[2021-01-08 18:26] LABS: Bedside Glucose 219 mg/dL (70-110)
[2021-01-08 21:48] LABS: Hematocrit 45.1 % (40-54); Hemoglobin 14.1 g/dL (13.0-16.5); POSITIVE COUNT YES
[2021-01-08] MEDS: Propofol 10MG/Ml 1,000 MG/100 ML Bottle 13.9 MG CONT INF (22:27)
[2021-01-08 23:36] LABS: Partial Thromboplast Time 78.1 Seconds (24.1-36.2)
[2021-01-09] VITALS (38 sets, daily range): BP systolic 134–181; BP diastolic 55–73; PULSE 87–130; RESP 14–55; TEMP 36.8–38.7; O2SAT 72–96
[2021-01-09] MEDS: Insulin Lispro 100 UNIT/ML INSULN.PEN SC ×4 (00:41→17:41)
[2021-01-09 01:31] LABS: Bedside Glucose 306 mg/dL (70-110)
[2021-01-09] MEDS: HEPARIN/D5w 25,000 UNITS 25,000 UNITS/250 ML IV.SOLN. 15 UNITS IV ×2 (02:14→17:43)
[2021-01-09] MEDS: Propofol 10MG/Ml 1,000 MG/100 ML Bottle 7 MG CONT INF (03:19)
[2021-01-09 04:48] LABS: Absolute Lymphocyte Count 0.43 X10^3/uL (0.83-4.51); Absolute Neutrophil Count 9.5 X10^3/uL (2.0-7.7); Basophil# 0.03 X10^3/uL; Basophil% 0.3 % (0-1); Lymphocyte # 0.43 X10^3/ul (4.0); Mean Corp Hgb Conc 31.1 g/dL (32-36); Mean Corpuscular Volume 96.4 fL (80-94); Mean Platelet Vol. 10.5 fl (6.2-12.0); Monocyte# 0.69 X10^3/uL; Monocyte% 6.4 % (0-10); NRBC Flagged by Analyzer 0 % (0-5); Neutrophil % 88.3 % (47-70); POSITIVE DIFFERENTIAL YES; Platelet Count 139 K/mm3 (150-450); RBC Distribution Width CV 14.9 % (11.6-14.6); RBC Distribution Width SD 52.9 fl (35.1-43.9); Red Blood Count 4.67 M/mm3 (4.6-6.2); White Blood Count 10.8 K/mm3 (4.4-11.0)
[2021-01-09 04:49] LABS: Differential Indicated SCAN CRITERIA MET
[2021-01-09 05:05] LABS: ALB/GLOB Ratio 0.6 RATIO (0.9-2.4); AST(SGOT) 26 U/L (15-37); Alanine Aminotransfer ALT/SGPT 33 U/L (16-61); Alkaline Phosphatase 102 U/L (45-117); Anion Gap 4 (5-15); BUN 40 mg/dL (7-18); BUN/Creat Ratio 48.5 RATIO (10-20); Calcium,Total 7.8 mg/dL (8.5-10.1); Chloride 105 mmol/L (98-107); Creatinine, Serum 0.82 mg/dL (0.70-1.30); EST Glomerular Filtration Rate 97 mL/min (>60); Est Glom Filt Rate - Afr Amer 117 mL/min (>60); Estimated Creatinine Clearance 80.37 ml/min; Globulin 3.6 g/dL (2.2-4.2); Glucose 364 mg/dL (74-106); Potassium 4.7 mmol/L (3.5-5.1); Protein, Total 5.6 g/dL (6.4-8.2); Sodium Level 142 mmol/L (136-145)
[2021-01-09 05:07] LABS: Partial Thromboplast Time 74.6 Seconds (24.1-36.2)
--- NOTE | 2021-01-09 06:32 | PN_ITS ---
Subjective: The patient was seen and examined at the bedside this morning. Events from the last 24 hours have been reviewed. The patient is currently afebrile, hemodynamically stable and maintaining appropriate oxygen saturations on assist control mode of mechanical ventilation with an FiO2 requirement of 100% and PEEP of 14. The patient did become agitated and restless this morning when his sedation was placed on hold. Nursing staff did report rust colored GI output yesterday evening. However, hemoglobin has remained stable. The patient's Pepcid was subsequently discontinued and he was transitioned to Protonix twice daily. The patient continues to tolerate tube feeds without issue. The patient is currently documented to be overall net +3.9 L for the hospital admission. He remains on a continuous heparin infusion. The patient remains on remdesivir, Decadron and antimicrobials. Liver and renal function are stable. After nursing reposition the patient this morning, he was noted to be progressively hypoxic. The patient was given additional boluses of propofol and fentanyl. A one-time dose of succinylcholine was administered to help resolve ventilator dyssynchrony. The patient's oxygenation status slowly improved. Once the paralytic wore off, the patient once again became tachypneic with worsening hypoxia. Therefore, he was then transitioned to APRV mode of mechanical ventilation. Objective: The patient's most recent lab work, culture data and imaging studies have all been personally reviewed. Rapid coronavirus antigen testing was positive on January 04. Sputum culture was positive for MSSA. General: - - Remains intubated, sedated and mechanically ventilated. Occasional ventilator synchrony noted. The patient is tachypneic overbreathing the ventilator set rate. HEENT: Atraumatic, Normocephalic Oral: No Gingival or Mucosal Lesions/ Ulcerations, - - Stable endotracheal and OG tubes. Neck: Supple, No Nodes, Trachea Midline Lungs: No rhonchi, No wheeze, No rales, Diminished, Tachypneic Cardiovascular: Normal S1, Normal S2, Tachycardic Abdomen: Bowel Sounds Present, Soft, Non Tender Extremities: No clubbing, No cyanosis, Edema Skin: - - No significant change from previous. Musculoskeletal: No Muscle Wasting Neurological: - - No focal neurological deficits. The patient remains sedated on the ventilator. He is currently nonresponsive to noxious and painful stimuli. Vital Signs Temp Pulse Resp BP Pulse Ox 98.2 F 88 23 H 150/63 H 92 01/09/21 04:00 01/09/21 05:00 01/09/21 05:00 01/09/21 05:00 01/09/21 05:00 Oxygen Flow Rate (L/min) 4 Oxygen Delivery Method Mechanical Ventilator Weight: 253 lb 12.033 oz Body Mass Index (BMI) 35.4 Intake and Output for Last 24 Hours 01/07/21 01/08/21 01/09/21 23:59 23:59 23:59 Intake Total 4727.39 / 4795.19 3281.00 / 3398.32 706.10 / 706.10 Output Total 3155 / 3430 3570 / 3795 500 / 500 Balance 1572.39 / 1365.19 -289.00 / -396.68 206.10 / 206.10 Labs (Last 48 Hours) 01/07/21 01/07/21 01/07/21 11:51 11:55 16:23 WBC RBC Hgb Hct MCV MCH MCHC RDW Std Deviation RDW Coeff of Paul Plt Count MPV Immature Gran % (Auto) Neut % (Auto) Lymph % (Auto) [place] % (Auto) Eos % (Auto) Baso % (Auto) Absolute Neuts (auto) Absolute Lymphs (auto) Nucleated RBC % APTT 46.9 H Specimen Type Sample Site pH Bicarbonate Actual Total CO2 Base Excess O2 Saturation O2 % ABG pCO2 ABG pO2 Respiration Rate O2 Delivery Device Vent Mode Tidal Volume POC PEEP Sodium Potassium Chloride Carbon Dioxide Anion Gap BUN Creatinine Estim Creat Clear Calc Est GFR (MDRD) Af Amer Est GFR (MDRD) Non-Af BUN/Creatinine Ratio Glucose Calcium Total Bilirubin AST ALT Alkaline Phosphatase Total Protein Albumin Globulin Albumin/Globulin Ratio POC Glucose 283 H 318 H 01/07/21 01/08/21 01/08/21 20:20 00:22 03:30 WBC 8.4 RBC 4.46 L Hgb 13.7 Hct 42.2 MCV 94.6 H MCH 30.7 MCHC 32.5 RDW Std Deviation 50.6 H RDW Coeff of Paul 14.4 Plt Count 152 MPV 10.2 Immature Gran % (Auto) 1.400 H Neut % (Auto) 85.2 H Lymph % (Auto) 4.2 L [place] % (Auto) 9.0 Eos % (Auto) 0.0 Baso % (Auto) 0.2 Absolute Neuts (auto) 7.1 Absolute Lymphs (auto) 0.35 L Nucleated RBC % 0 APTT 51.3 H Specimen Type Sample Site pH Bicarbonate Actual Total CO2 Base Excess O2 Saturation O2 % ABG pCO2 ABG pO2 Respiration Rate O2 Delivery Device Vent Mode Tidal Volume POC PEEP Sodium Potassium Chloride Carbon Dioxide Anion Gap BUN Creatinine Estim Creat Clear Calc Est GFR (MDRD) Af Amer Est GFR (MDRD) Non-Af BUN/Creatinine Ratio Glucose Calcium Total Bilirubin AST ALT Alkaline Phosphatase Total Protein Albumin Globulin Albumin/Globulin Ratio POC Glucose 278 H 01/08/21 01/08/21 01/08/21 03:30 03:30 05:41 WBC RBC Hgb Hct MCV MCH MCHC RDW Std Deviation RDW Coeff of Paul Plt Count MPV Immature Gran % (Auto) Neut % (Auto) Lymph % (Auto) [place] % (Auto) Eos % (Auto) Baso % (Auto) Absolute Neuts (auto) Absolute Lymphs (auto) Nucleated RBC % APTT 54.1 H Specimen Type Sample Site pH Bicarbonate Actual Total CO2 Base Excess O2 Saturation O2 % ABG pCO2 ABG pO2 Respiration Rate O2 Delivery Device Vent Mode Tidal Volume POC PEEP Sodium 142 Potassium 4.2 Chloride 110 H Carbon Dioxide 29.0 Anion Gap 3 L BUN 33 H Creatinine 0.62 L Estim Creat Clear Calc 65.90 Est GFR (MDRD) Af Amer 162 Est GFR (MDRD) Non-Af 134 BUN/Creatinine Ratio 53.0 H Glucose 278 H Calcium 7.5 L Total Bilirubin 0.70 AST 43 H ALT 38 Alkaline Phosphatase 100 Total Protein 5.2 L Albumin 2.0 L Globulin 3.2 Albumin/Globulin Ratio 0.6 L POC Glucose 263 H 01/08/21 01/08/21 01/08/21 09:09 10:55 12:05 WBC RBC Hgb Hct MCV MCH MCHC RDW Std Deviation RDW Coeff of Paul Plt Count MPV Immature Gran % (Auto) Neut % (Auto) Lymph % (Auto) [place] % (Auto) Eos % (Auto) Baso % (Auto) Absolute Neuts (auto) Absolute Lymphs (auto) Nucleated RBC % APTT 42.4 H Specimen Type ART Sample Site R Radial pH 7.37 Bicarbonate Actual 30.0 H Total CO2 32 Base Excess 5 H O2 Saturation 87 L O2 % 65 ABG pCO2 52.4 H ABG pO2 56 L Respiration Rate 12 O2 Delivery Device ET Tube Vent Mode AC Tidal Volume 450 POC PEEP 10 Sodium Potassium Chloride Carbon Dioxide Anion Gap BUN Creatinine Estim Creat Clear Calc Est GFR (MDRD) Af Amer Est GFR (MDRD) Non-Af BUN/Creatinine Ratio Glucose Calcium Total Bilirubin AST ALT Alkaline Phosphatase Total Protein Albumin Globulin Albumin/Globulin Ratio POC Glucose 286 H 01/08/21 01/08/21 01/08/21 17:10 17:13 21:20 WBC RBC Hgb 14.1 Hct 45.1 MCV MCH MCHC RDW Std Deviation RDW Coeff of Paul Plt Count MPV Immature Gran % (Auto) Neut % (Auto) Lymph % (Auto) [place] % (Auto) Eos % (Auto) Baso % (Auto) Absolute Neuts (auto) Absolute Lymphs (auto) Nucleated RBC % APTT 57.8 H Specimen Type Sample Site pH Bicarbonate Actual Total CO2 Base Excess O2 Saturation O2 % ABG pCO2 ABG pO2 Respiration Rate O2 Delivery Device Vent Mode Tidal Volume POC PEEP Sodium Potassium Chloride Carbon Dioxide Anion Gap BUN Creatinine Estim Creat Clear Calc Est GFR (MDRD) Af Amer Est GFR (MDRD) Non-Af BUN/Creatinine Ratio Glucose Calcium Total Bilirubin AST ALT Alkaline Phosphatase Total Protein Albumin Globulin Albumin/Globulin Ratio POC Glucose 219 H 01/08/21 01/09/21 01/09/21 23:10 00:40 04:30 WBC 10.8 RBC 4.67 Hgb 14.0 Hct 45.0 MCV 96.4 H MCH 30.0 MCHC 31.1 L RDW Std Deviation 52.9 H RDW Coeff of Paul 14.9 H Plt Count 139 L MPV 10.5 Immature Gran % (Auto) 1.000 H Neut % (Auto) 88.3 H Lymph % (Auto) 4.0 L [place] % (Auto) 6.4 Eos % (Auto) 0.0 Baso % (Auto) 0.3 Absolute Neuts (auto) 9.5 H Absolute Lymphs (auto) 0.43 L Nucleated RBC % 0 APTT 78.1 H Specimen Type Sample Site pH Bicarbonate Actual Total CO2 Base Excess O2 Saturation O2 % ABG pCO2 ABG pO2 Respiration Rate O2 Delivery Device Vent Mode Tidal Volume POC PEEP Sodium Potassium Chloride Carbon Dioxide Anion Gap BUN Creatinine Estim Creat Clear Calc Est GFR (MDRD) Af Amer Est GFR (MDRD) Non-Af BUN/Creatinine Ratio Glucose Calcium Total Bilirubin AST ALT Alkaline Phosphatase Total Protein Albumin Globulin Albumin/Globulin Ratio POC Glucose 306 H 01/09/21 01/09/21 04:30 04:30 WBC RBC Hgb Hct MCV MCH MCHC RDW Std Deviation RDW Coeff of Paul Plt Count MPV Immature Gran % (Auto) Neut % (Auto) Lymph % (Auto) [place] % (Auto) Eos % (Auto) Baso % (Auto) Absolute Neuts (auto) Absolute Lymphs (auto) Nucleated RBC % APTT 74.6 H Specimen Type Sample Site pH Bicarbonate Actual Total CO2 Base Excess O2 Saturation O2 % ABG pCO2 ABG pO2 Respiration Rate O2 Delivery Device Vent Mode Tidal Volume POC PEEP Sodium 142 Potassium 4.7 Chloride 105 Carbon Dioxide 33.0 H Anion Gap 4 L BUN 40 H Creatinine 0.82 Estim Creat Clear Calc 80.37 Est GFR (MDRD) Af Amer 117 Est GFR (MDRD) Non-Af 97 BUN/Creatinine Ratio 48.5 H Glucose 364 H Calcium 7.8 L Total Bilirubin 0.90 AST 26 ALT 33 Alkaline Phosphatase 102 Total Protein 5.6 L Albumin 2.0 L Globulin 3.6 Albumin/Globulin Ratio 0.6 L POC Glucose Microbiology 01/05/21 06:45 Sputum, Induced/Lukens Gram Stain - Final 01/05/21 06:45 Sputum, Induced/Lukens Respiratory Culture - Final Staphylococcus aureus Clinical Impression(s) from Imaging Studies Chest X-Ray 01/04/21 14:45 IMPRESSION: Bilateral diffuse pulmonary infiltrates worse in the mid and lower lung regions. The tip of the endotracheal tube is at 6.3 cm proximal to the darrick. The tip of the enteric tube is in the body of the stomach. Electronically Signed: Dustin Antonio MD at 15:06 EST , Service support , Chest CTA 01/04/21 14:58 IMPRESSION: COPD and ASHD with superimposed pulmonary edema and bilateral effusions. Cannot definitively exclude coexisting Covid 19 pneumonia Limited visualization of the distal subsegmental vessels without definitive evidence for pulmonary emboli If strong clinical suspicion for pulmonary embolus DOPPLER scan of the deep venous system of lower extremities recommended Electronically Signed: Pelon Yip MD at 16:29 EST , Service support , Chest X-Ray 01/04/21 23:07 IMPRESSION: Bilateral interstitial prominence and patchy infiltrates similar to previous study. Electronically Signed: Jonleonidas Gomez DO at 0:06 EST Tel [phone], Service support , Chest X-Ray 01/08/21 09:06 IMPRESSION: Progressive bilateral pulmonary infiltrates worse in the left hemithorax. The support tubes are in good position. Electronically Signed: Dustin Antonio MD at 13:34 EST , Service support , Medical Necessity - Tobacco Use Smoking Status: Former smoker Tobacco Use: Cigarettes Assessment/Plan All Active Problems Acute hypoxemic respiratory failure (Acute) Metabolic acidosis (Acute) Airway intubation performed without difficulty (Acute) COVID-19 (Acute) ARDS (adult respiratory distress syndrome) (Acute) RECOMMENDATIONS: 1. Transition patient from assist control to APRV mode of mechanical ventilation. 2. If the patient does not tolerate APRV, he will be transitioned back to assist control and cis atracurium will be initiated. 3. Continue antimicrobials per ID recommendations. 4. Continue remdesivir and Decadron to complete treatment courses. 5. Continue propofol and fentanyl to maintain a RASS of -1 to 1. 6. Continue heparin infusion as ordered. 7. Reattempt gentle diuresis. 8. Continue tube feeds as tolerated. 9. Continue appropriate GI prophylaxis. IMPRESSIONS: 1. Acute hypoxemic respiratory failure secondary to combined COVID-19 and staph aureus pneumonia Plan to continue current supportive measures including invasive mechanical ventilatory support with a goal to maintain an oxygen saturation at or above 90%. The patient will be continued on remdesivir to complete treatment course, pending stability in renal and liver function. Continue daily Decadron to complete 10 days of treatment. Antibiotics will be continued per ID recommendations. Given the interval worsening in the patient's oxygenation status, the patient will be transitioned from assist control to APRV mode of mechanical ventilation. If he does not tolerate APRV, he will be placed back on assist control with plans to initiate cis atracurium. In the interim, will once again attempt gentle diuresis with IV Lasix. Continue tube feeds as tolerated. 2. Probable obstructive lung disease of unclear severity Start scheduled bronchodilator therapy. Continue supportive measures as noted above. 3. Obesity/diabetes mellitus/hyperlipidemia Complicates care, management, recovery and prognosis. Continue home medications as indicated. Continue Lantus and sliding scale insulin coverage. TIME: 45 minutes of critical care time, independent of procedures, was spent addressing the patient's acute hypoxemic respiratory failure, COVID-19 pneumonia, staph aureus pneumonia, probable obstructive lung disease, review of all data and collaboration with the care team. [id number]) [phone] [id number] Critical care first hour
[2021-01-09] MEDS: Cefazolin 2 GM in 0.9% Normal Saline 100 ML IV ×3 (06:38→21:07)
[2021-01-09] MEDS: Ipratropium/Albuterol Sulfate 3 ML AMPUL.NEB INHALATION ×2 (07:25→13:49)
[2021-01-09] MEDS: CHLORHEXIDINE GLUC 2% CLOTH 1 EACH TOWELETTE TOPICAL (08:06)
[2021-01-09] MEDS: Chlorhexidine 15 ML PO ×2 (08:06→21:06)
[2021-01-09] MEDS: dexAMETHasone 10 MG/ML Vial 6 MG IV (08:08)
[2021-01-09] MEDS: Nystatin Powder 15gm Bottle 1 APPLIC TOPICAL ×2 (08:09→21:06)
[2021-01-09] MEDS: 0.9% Saline Lock 10 ML Syringe IV (08:15)
[2021-01-09] MEDS: Vital High Protein 1,000 ML 70 ML GT (09:55)
[2021-01-09] MEDS: Furosemide 40 MG/4 ML Vial IV (09:55)
[2021-01-09] MEDS: Propofol 10MG/Ml 1,000 MG/100 ML Bottle 20.9 MG CONT INF ×4 (10:00→20:06)
--- NOTE | 2021-01-09 10:37 | NURSING ---
This RN and emergency medicine physician assistant leilani in to turn patient at 0800, once turned patient desaturating, restless, tachypneic, RR in 40s SPo2 as low as 72. Sedation was increased per nursing orders, Dr jose called to bedside ordered 100 of succs given by this RN under direct supervision of Dr Jose, ventilator settings adjusted by Respiratory per Dr Jose, family called to come in to see patient. Family arrived at 1015, family and bullet assembly press operator at bedside at 1030
[2021-01-09 13:10] LABS: Bedside Glucose 329 mg/dL (70-110)
--- NOTE | 2021-01-09 16:45 | PCM.PROGNOTE ---
Patient Problems: Active and Suspected Problems Acute hypoxemic respiratory failure (Acute) Metabolic acidosis (Acute) Airway intubation performed without difficulty (Acute) COVID-19 (Acute) ARDS (adult respiratory distress syndrome) (Acute) Subjective: Patient was seen and examined today, he remains sedated on the ventilator, he is currently under airway pressure release ventilation mode with an FiO2 of 1. Patient's glucose is elevated at 364 this morning. White blood cell count and hemoglobin remain normal. Objective: General: - - Patient is sedated and on the ventilator HEENT: Atraumatic, PERRLA, Normocephalic Oral: Moist Mucosa Neck: Supple, No JVD, No Nuchal Rigidity, Trachea Midline, Thyroid Normal Size and Texture Lungs: Clear to auscultation, Normal air movement, No rhonchi, No wheeze, No rales Cardiovascular: Regular rate, Regular Rhythm, Normal S1, Normal S2, No murmurs, No Ectopic Activity, PMI Normal, No rub noted, No Gallop Abdomen: Bowel Sounds Present, Soft, Non Tender, Non-Distended Extremities: No clubbing, No cyanosis, Capillary Refill Less than 3 Seconds, Edema - Mild pretibial edema is noted bilaterally Skin: No rashes, No breakdown Musculoskeletal: No swelling of any joints are noted on examination Neurological: - - Patient is sedated and on the ventilator - Physical Exam Vitals/I&O's: Vital Signs Temp Pulse Resp BP Pulse Ox 100 F H 124 H 44 H 147/73 H 90 01/09/21 12:00 01/09/21 15:51 01/09/21 15:51 01/09/21 14:00 01/09/21 15:51 Oxygen Flow Rate (L/min) 4 Oxygen Delivery Method Mechanical Ventilator Weight: 115.1 kg Body Mass Index (BMI) 35.4 Intake and Output for Last 24 Hours 01/07/21 01/08/21 01/09/21 23:59 23:59 23:59 Intake Total 4727.39 / 4795.19 3281.00 / 3398.32 2926.03 / 2926.03 Output Total 3155 / 3430 3570 / 3795 1675 / 1675 Balance 1572.39 / 1365.19 -289.00 / -396.68 1251.03 / 1251.03 Microbiology Past 72 Hours 01/04/21 14:45 Blood Culture (Wb) - Chest Blood Culture - Final No growth in 5 days. 01/04/21 14:05 Blood Culture (Wb) - Anticubital Left Blood Culture - Final No growth in 5 days. 01/05/21 06:45 Sputum, Induced/[place]ukens Gram Stain - Final 01/05/21 06:45 Sputum, Induced/Lukens Respiratory Culture - Final Staphylococcus aureus Laboratory Results 01/08/21 17:10: APTT 57.8 H 01/08/21 17:13: POC Glucose 219 H 01/08/21 21:20: Hgb 14.1, Hct 45.1 01/08/21 23:10: APTT 78.1 H 01/09/21 00:40: POC Glucose 306 H 01/09/21 04:30: WBC 10.8, RBC 4.67, Hgb 14.0, Hct 45.0, MCV 96.4 H, MCH 30.0, MCHC 31.1 L, RDW Std Deviation 52.9 H, RDW Coeff of Paul 14.9 H, Plt Count 139 L, MPV 10.5, Immature Gran % (Auto) 1.000 H, Neut % (Auto) 88.3 H, Lymph % (Auto) 4.0 L, [place] % (Auto) 6.4, Eos % (Auto) 0.0, Baso % (Auto) 0.3, Absolute Neuts (auto) 9.5 H, Absolute Lymphs (auto) 0.43 L, Nucleated RBC % 0 01/09/21 04:30: Sodium 142, Potassium 4.7, Chloride 105, Carbon Dioxide 33.0 H, Anion Gap 4 L, BUN 40 H, Creatinine 0.82, Estim Creat Clear Calc 80.37, Est GFR (MDRD) Af Amer 117, Est GFR (MDRD) Non-Af 97, BUN/Creatinine Ratio 48.5 H, Glucose 364 H, Calcium 7.8 L, Total Bilirubin 0.90, AST 26, ALT 33, Alkaline Phosphatase 102, Total Protein 5.6 L, Albumin 2.0 L, Globulin 3.6, Albumin/Globulin Ratio 0.6 L 01/09/21 04:30: APTT 74.6 H 01/09/21 12:57: POC Glucose 329 H Current Medications Acetaminophen (Acetaminophen 325 Mg Tablet) 650 mg PO Q6H PRN PRN PRN Reason: Pain Score 1-10/Temp > 100.7 F Albuterol/Ipratropium (Ipratropium/Albuterol Sulfate 3 Ml Ampul.Neb) 3 ml INHALATION Q6H.RT [facility] Last Admin: 01/09/21 13:49 Dose: 3 ml Documented by: Chlorhexidine Gluconate (Chlorhexidine 15 Ml) 15 ml PO BID SIMONE Last Admin: 01/09/21 08:06 Dose: 15 ml Documented by: Chlorhexidine Gluconate (Chlorhexidine Gluc 2% Cloth 1 Each Towelette) 1 each TOPICAL DAILY SIMONE Last Admin: 01/09/21 08:06 Dose: 1 each Documented by: Dexamethasone Sodium Phosphate (Dexamethasone 10 Mg/Ml Vial) 6 mg IV DAILY [facility] Stop: 01/13/21 10:01 Last Admin: 01/09/21 08:08 Dose: 6 mg Documented by: Dextrose (Dextrose 50%-Water 25 Gm/50 Ml Disp.Syrin) 0 gm IV X1 PRN; Protocol PRN Reason: Hypoglycemia Glucagon (Glucagon 1 Mg/Ml Syringe) 1 mg IM .X1 PRN PRN Reason: Hypoglycemia Heparin Sodium (Porcine) (Heparin Injection (Vial) 5,000 Unit/Ml Vial) 0 unit IV UD PRN; Protocol PRN Reason: dose adjustment Last Admin: 01/08/21 11:28 Dose: 1,000 unit Documented by: Fentanyl Citrate 1,000 mcg/ (Sodium Chloride) 100 mls @ 5 mls/hr CONT INF .Q20H [facility]; Protocol Last Titration: 01/09/21 14:00 Dose: 125 mcg/hr, 12.5 mls/hr Documented by: Heparin Sodium/Dextrose () 25,000 units in 250 mls @ 15 mls/hr IV .[id number] [facility]; Protocol Last Titration: 01/09/21 10:32 Dose: 1,500 units/hr, 15 mls/hr Documented by: Propofol (Diprivan) 1,000 mg in 100 mls @ 6.954 mls/hr CONT INF .Q12H [facility]; Protocol Last Titration: 01/09/21 14:00 Dose: 30 mcg/kg/min, 20.9 mls/hr Documented by: Enteral Nutritional Formula (Vital High Protein) 1,000 mls @ 70 mls/hr GT .[id number] [facility] Last Admin: 01/09/21 09:55 Dose: 70 mls/hr Documented by: Cefazolin Sodium 2 gm/ Sodium (Chloride) 110 mls @ 150 mls/hr IV Q8 [facility] Last Infusion: 01/09/21 14:49 Dose: Infused Documented by: Pantoprazole Sodium 40 mg/ (Sodium Chloride) 110 mls @ 330 mls/hr IV Q12 [facility] Last Infusion: 01/09/21 10:06 Dose: Infused Documented by: Insulin Glargine (Insulin Glargine 100 Units/Ml Pen) 25 units SC DAILY SIMONE Insulin Human Lispro (Insulin Lispro 100 Unit/Ml Insuln.Pen) 0 unit SC Q6 [facility]; Protocol Last Admin: 01/09/21 12:58 Dose: 8 u Documented by: Nystatin (Nystatin Powder 15gm Bottle) 1 applic TOPICAL BID [facility]; Protocol Last Admin: 01/09/21 08:09 Dose: 1 applicatio Documented by: Polyethylene Glycol (Polyethylene Glycol 3350 17 Gm Packet) 17 gm GT DAILY [facility] Last Admin: 01/09/21 08:10 Dose: Not Given Documented by: Senna/Docusate Sodium (Senna/Docusate Sodium 1 Tablet) 2 tablet GT BID [facility] Last Admin: 01/09/21 08:10 Dose: Not Given Documented by: Sodium Chloride (0.9% Saline Lock 10 Ml Syringe) 10 - 40 ml IV UD PRN PRN Reason: SALINE FLUSH Last Admin: 01/09/21 08:15 Dose: 40 ml Documented by: Medical Necessity - Tobacco Use Smoking Status: Former smoker Tobacco Use: Cigarettes Assessment/Plan All Active Problems Acute hypoxemic respiratory failure (Acute) Metabolic acidosis (Acute) Airway intubation performed without difficulty (Acute) COVID-19 (Acute) ARDS (adult respiratory distress syndrome) (Acute) #1 acute hypoxic respiratory failure secondary to COVID-19 pneumonia and methicillin sensitive staph aureus pneumonia-continue present treatment per critical care medicine, patient's prognosis extremely guarded at this point, continue remdesivir and Decadron #2 type 2 diabetes-continue to monitor blood sugars #3 hyperlipidemia #4 Methicillin sensitive staph aureus pneumonia-infectious diseases is participating in the patient's care Inpatient E&M: [id number] [facility] Hosp L2
[2021-01-09 18:26] LABS: Bedside Glucose 369 mg/dL (70-110)
[2021-01-09] MEDS: Senna/Docusate Sodium 1 Tablet 2 TABLET GT (21:07)
[2021-01-09] MEDS: Acetaminophen 325 MG Tablet 650 MG PO (21:07)
[2021-01-10] VITALS (36 sets, daily range): BP systolic 73–177; BP diastolic 59–80; PULSE 111–140; RESP 13–52; TEMP 37.8–38.8; O2SAT 81–100
[2021-01-10] MEDS: Ketorolac 15 MG/ML Vial IV (00:41)
[2021-01-10] MEDS: Insulin Lispro 100 UNIT/ML INSULN.PEN 20 UNIT SC (00:53)
[2021-01-10] MEDS: Propofol 10MG/Ml 1,000 MG/100 ML Bottle 20.9 MG CONT INF ×3 (00:54→09:29)
[2021-01-10 00:55] LABS: Bedside Glucose 454 mg/dL (70-110)
[2021-01-10] MEDS: Vital High Protein 1,000 ML 70 ML GT ×2 (01:56→17:46)
[2021-01-10] MEDS: Acetaminophen 325 MG Tablet 650 MG PO (05:17)
[2021-01-10] MEDS: Cefazolin 2 GM in 0.9% Normal Saline 100 ML IV ×3 (05:18→21:10)
[2021-01-10] MEDS: Insulin Lispro 100 UNIT/ML INSULN.PEN SC ×3 (05:31→17:46)
[2021-01-10 05:40] LABS: Absolute Lymphocyte Count 0.38 X10^3/uL (0.83-4.51); Absolute Neutrophil Count 9.5 X10^3/uL (2.0-7.7); Basophil# 0.08 X10^3/uL; Basophil% 0.7 % (0-1); Hematocrit 45.6 % (40-54); Hemoglobin 13.9 g/dL (13.0-16.5); Lymphocyte # 0.38 X10^3/ul (4.0); Lymphocyte % 3.3 % (19-41); Mean Corp Hgb Conc 30.5 g/dL (32-36); Mean Corpuscular Hgb 29.8 pg (27.0-32.0); Mean Corpuscular Volume 97.9 fL (80-94); Mean Platelet Vol. 10.8 fl (6.2-12.0); Monocyte# 1.06 X10^3/uL; Monocyte% 9.1 % (0-10); NRBC Flagged by Analyzer 0.5 % (0-5); Neutrophil # 9.54 X10^3/uL (2.7-7.7); Neutrophil % 82.3 % (47-70); POSITIVE DIFFERENTIAL YES; Platelet Count 178 K/mm3 (150-450); RBC Distribution Width CV 15.3 % (11.6-14.6); RBC Distribution Width SD 55.3 fl (35.1-43.9); Red Blood Count 4.66 M/mm3 (4.6-6.2); White Blood Count 11.6 K/mm3 (4.4-11.0)
[2021-01-10 05:41] LABS: Bedside Glucose 432 mg/dL (70-110)
--- NOTE | 2021-01-10 05:41 | PN_ITS ---
Subjective: The patient was seen and examined at the bedside this morning. Events from the last 24 hours have been reviewed. The patient was febrile overnight with a T- max of 101.8 ?F. The patient remains on APRV mode of mechanical ventilation with an FiO2 requirement of 100%. He is currently documented to be overall net +5.7 L for the hospital admission. Given the patient's clinical decompensation, I did allow the patient's family to visit yesterday. I personally had a discussion with them regarding his overall prognosis and goals of care. They el ected yesterday to transition him to DNR CCA. Creatinine has increased this morning to 1.35. Glucose is significantly elevated. Objective: The patient's most recent lab work, culture data and imaging studies have all been personally reviewed. Rapid coronavirus antigen testing was positive on January 04. Sputum culture was positive for staph aureus. General: - - Remains intubated, sedated and mechanically ventilated. HEENT: Atraumatic, Normocephalic Oral: No Gingival or Mucosal Lesions/ Ulcerations, - - Endotracheal and OG tubes remain in place. Neck: Supple, No Nodes, Trachea Midline Lungs: No rhonchi, No wheeze, No rales, Diminished, Tachypneic, - - Overbreathing set rate on ventilator. Cardiovascular: Normal S1, Normal S2, Tachycardic Abdomen: Bowel Sounds Present, Soft, Non Tender, Obese Extremities: No clubbing, No cyanosis, Edema Skin: - - No significant change from previous. Musculoskeletal: No Muscle Wasting Lymphatic: No Cervical, Supraclavicular, or Inguinal Adenopathy Neurological: - - No focal neurological deficits. Remains sedated on the ventilator. No purposeful movements. Will not follow commands. Vital Signs Temp Pulse Resp BP Pulse Ox 101.5 F H 121 H 51 H 133/62 H 94 01/10/21 03:00 01/10/21 05:20 01/10/21 05:20 01/10/21 03:00 01/10/21 05:20 Oxygen Flow Rate (L/min) 4 Oxygen Delivery Method Mechanical Ventilator Weight: 255 lb 8.252 oz Body Mass Index (BMI) 35.4 Intake and Output for Last 24 Hours 01/08/21 01/09/21 01/10/21 23:59 23:59 23:59 Intake Total 3281.00 / 3398.32 4027.39 / 4139.89 316.68 / 316.68 Output Total 3570 / 3795 2125 / 2250 125 / 125 Balance -289.00 / -396.68 1902.39 / 1889.89 191.68 / 191.68 Labs (Last 48 Hours) 01/08/21 01/08/21 01/08/21 05:41 09:09 10:55 WBC RBC Hgb Hct MCV MCH MCHC RDW Std Deviation RDW Coeff of Paul Plt Count MPV Immature Gran % (Auto) Neut % (Auto) Lymph % (Auto) [place] % (Auto) Eos % (Auto) Baso % (Auto) Absolute Neuts (auto) Absolute Lymphs (auto) Nucleated RBC % APTT 42.4 H Specimen Type ART Sample Site R Radial pH 7.37 Bicarbonate Actual 30.0 H Total CO2 32 Base Excess 5 H O2 Saturation 87 L O2 % 65 ABG pCO2 52.4 H ABG pO2 56 L Respiration Rate 12 O2 Delivery Device ET Tube Vent Mode AC Tidal Volume 450 POC PEEP 10 Sodium Potassium Chloride Carbon Dioxide Anion Gap BUN Creatinine Estim Creat Clear Calc Est GFR (MDRD) Af Amer Est GFR (MDRD) Non-Af BUN/Creatinine Ratio Glucose Calcium Total Bilirubin AST ALT Alkaline Phosphatase Total Protein Albumin Globulin Albumin/Globulin Ratio POC Glucose 263 H 01/08/21 01/08/21 01/08/21 12:05 17:10 17:13 WBC RBC Hgb Hct MCV MCH MCHC RDW Std Deviation RDW Coeff of Paul Plt Count MPV Immature Gran % (Auto) Neut % (Auto) Lymph % (Auto) [place] % (Auto) Eos % (Auto) Baso % (Auto) Absolute Neuts (auto) Absolute Lymphs (auto) Nucleated RBC % APTT 57.8 H Specimen Type Sample Site pH Bicarbonate Actual Total CO2 Base Excess O2 Saturation O2 % ABG pCO2 ABG pO2 Respiration Rate O2 Delivery Device Vent Mode Tidal Volume POC PEEP Sodium Potassium Chloride Carbon Dioxide Anion Gap BUN Creatinine Estim Creat Clear Calc Est GFR (MDRD) Af Amer Est GFR (MDRD) Non-Af BUN/Creatinine Ratio Glucose Calcium Total Bilirubin AST ALT Alkaline Phosphatase Total Protein Albumin Globulin Albumin/Globulin Ratio POC Glucose 286 H 219 H 01/08/21 01/08/21 01/09/21 21:20 23:10 00:40 WBC RBC Hgb 14.1 Hct 45.1 MCV MCH MCHC RDW Std Deviation RDW Coeff of Paul Plt Count MPV Immature Gran % (Auto) Neut % (Auto) Lymph % (Auto) [place] % (Auto) Eos % (Auto) Baso % (Auto) Absolute Neuts (auto) Absolute Lymphs (auto) Nucleated RBC % APTT 78.1 H Specimen Type Sample Site pH Bicarbonate Actual Total CO2 Base Excess O2 Saturation O2 % ABG pCO2 ABG pO2 Respiration Rate O2 Delivery Device Vent Mode Tidal Volume POC PEEP Sodium Potassium Chloride Carbon Dioxide Anion Gap BUN Creatinine Estim Creat Clear Calc Est GFR (MDRD) Af Amer Est GFR (MDRD) Non-Af BUN/Creatinine Ratio Glucose Calcium Total Bilirubin AST ALT Alkaline Phosphatase Total Protein Albumin Globulin Albumin/Globulin Ratio POC Glucose 306 H 01/09/21 01/09/21 01/09/21 04:30 04:30 04:30 WBC 10.8 RBC 4.67 Hgb 14.0 Hct 45.0 MCV 96.4 H MCH 30.0 MCHC 31.1 L RDW Std Deviation 52.9 H RDW Coeff of Paul 14.9 H Plt Count 139 L MPV 10.5 Immature Gran % (Auto) 1.000 H Neut % (Auto) 88.3 H Lymph % (Auto) 4.0 L [place] % (Auto) 6.4 Eos % (Auto) 0.0 Baso % (Auto) 0.3 Absolute Neuts (auto) 9.5 H Absolute Lymphs (auto) 0.43 L Nucleated RBC % 0 APTT 74.6 H Specimen Type Sample Site pH Bicarbonate Actual Total CO2 Base Excess O2 Saturation O2 % ABG pCO2 ABG pO2 Respiration Rate O2 Delivery Device Vent Mode Tidal Volume POC PEEP Sodium 142 Potassium 4.7 Chloride 105 Carbon Dioxide 33.0 H Anion Gap 4 L BUN 40 H Creatinine 0.82 Estim Creat Clear Calc 80.37 Est GFR (MDRD) Af Amer 117 Est GFR (MDRD) Non-Af 97 BUN/Creatinine Ratio 48.5 H Glucose 364 H Calcium 7.8 L Total Bilirubin 0.90 AST 26 ALT 33 Alkaline Phosphatase 102 Total Protein 5.6 L Albumin 2.0 L Globulin 3.6 Albumin/Globulin Ratio 0.6 L POC Glucose 01/09/21 01/09/21 01/10/21 12:57 17:40 00:36 WBC RBC Hgb Hct MCV MCH MCHC RDW Std Deviation RDW Coeff of Paul Plt Count MPV Immature Gran % (Auto) Neut % (Auto) Lymph % (Auto) [place] % (Auto) Eos % (Auto) Baso % (Auto) Absolute Neuts (auto) Absolute Lymphs (auto) Nucleated RBC % APTT Specimen Type Sample Site pH Bicarbonate Actual Total CO2 Base Excess O2 Saturation O2 % ABG pCO2 ABG pO2 Respiration Rate O2 Delivery Device Vent Mode Tidal Volume POC PEEP Sodium Potassium Chloride Carbon Dioxide Anion Gap BUN Creatinine Estim Creat Clear Calc Est GFR (MDRD) Af Amer Est GFR (MDRD) Non-Af BUN/Creatinine Ratio Glucose Calcium Total Bilirubin AST ALT Alkaline Phosphatase Total Protein Albumin Globulin Albumin/Globulin Ratio POC Glucose 329 H 369 H 454 H* 01/10/21 01/10/21 01/10/21 05:30 05:30 05:30 WBC Pending RBC Pending Hgb Pending Hct Pending MCV Pending MCH Pending MCHC Pending RDW Std Deviation Pending RDW Coeff of Paul Pending Plt Count Pending MPV Immature Gran % (Auto) Neut % (Auto) Pending Lymph % (Auto) [place] % (Auto) Eos % (Auto) Baso % (Auto) Absolute Neuts (auto) Pending Absolute Lymphs (auto) Nucleated RBC % APTT Pending Specimen Type Sample Site pH Bicarbonate Actual Total CO2 Base Excess O2 Saturation O2 % ABG pCO2 ABG pO2 Respiration Rate O2 Delivery Device Vent Mode Tidal Volume POC PEEP Sodium Pending Potassium Pending Chloride Pending Carbon Dioxide Pending Anion Gap Pending BUN Pending Creatinine Pending Estim Creat Clear Calc Est GFR (MDRD) Af Amer Pending Est GFR (MDRD) Non-Af Pending BUN/Creatinine Ratio Pending Glucose Pending Calcium Pending Total Bilirubin Pending AST Pending ALT Pending Alkaline Phosphatase Pending Total Protein Pending Albumin Pending Globulin Albumin/Globulin Ratio POC Glucose 01/10/21 05:30 WBC RBC Hgb Hct MCV MCH MCHC RDW Std Deviation RDW Coeff of Paul Plt Count MPV Immature Gran % (Auto) Neut % (Auto) Lymph % (Auto) [place] % (Auto) Eos % (Auto) Baso % (Auto) Absolute Neuts (auto) Absolute Lymphs (auto) Nucleated RBC % APTT Specimen Type Sample Site pH Bicarbonate Actual Total CO2 Base Excess O2 Saturation O2 % ABG pCO2 ABG pO2 Respiration Rate O2 Delivery Device Vent Mode Tidal Volume POC PEEP Sodium Potassium Chloride Carbon Dioxide Anion Gap BUN Creatinine Estim Creat Clear Calc Est GFR (MDRD) Af Amer Est GFR (MDRD) Non-Af BUN/Creatinine Ratio Glucose Calcium Total Bilirubin AST ALT Alkaline Phosphatase Total Protein Albumin Globulin Albumin/Globulin Ratio POC Glucose 432 H Microbiology 01/04/21 14:45 Blood Culture (Wb) - Chest Blood Culture - Final No growth in 5 days. 01/04/21 14:05 Blood Culture (Wb) - Anticubital Left Blood Culture - Final No growth in 5 days. Clinical Impression(s) from Imaging Studies Chest X-Ray 01/04/21 14:45 IMPRESSION: Bilateral diffuse pulmonary infiltrates worse in the mid and lower lung regions. The tip of the endotracheal tube is at 6.3 cm proximal to the darrick. The tip of the enteric tube is in the body of the stomach. Electronically Signed: Dustin Antonio MD at 15:06 EST , Service support , Chest CTA 01/04/21 14:58 IMPRESSION: COPD and ASHD with superimposed pulmonary edema and bilateral effusions. Cannot definitively exclude coexisting Covid 19 pneumonia Limited visualization of the distal subsegmental vessels without definitive evidence for pulmonary emboli If strong clinical suspicion for pulmonary embolus DOPPLER scan of the deep venous system of lower extremities recommended Electronically Signed: Pelon Yip MD at 16:29 EST , Service support , Chest X-Ray 01/04/21 23:07 IMPRESSION: Bilateral interstitial prominence and patchy infiltrates similar to previous study. Electronically Signed: Jon Gomez DO at 0:06 EST Tel [phone], Service support , Chest X-Ray 01/08/21 09:06 IMPRESSION: Progressive bilateral pulmonary infiltrates worse in the left hemithorax. The support tubes are in good position. Electronically Signed: Dustin Antonio MD at 13:34 EST , Service support , Medical Necessity - Tobacco Use Smoking Status: Former smoker Tobacco Use: Cigarettes Assessment/Plan All Active Problems Acute hypoxemic respiratory failure (Acute) Metabolic acidosis (Acute) Airway intubation performed without difficulty (Acute) COVID-19 (Acute) ARDS (adult respiratory distress syndrome) (Acute) RECOMMENDATIONS: 1. Continue patient on APRV mode of mechanical ventilation. 2. Obtain arterial blood gas this morning. 3. Hold on any further attempts at diuresis, given increase in creatinine. Avoid nephrotoxic medications. 4. Continue antimicrobials per ID recommendations. 5. Continue remdesivir and Decadron to complete treatment courses. 6. Continue heparin infusion as ordered. 7. Continue tube feeds as tolerated. 8. Continue appropriate GI prophylaxis. 9. Ongoing goals of care discussions with the patient's family. IMPRESSIONS: 1. Acute hypoxemic respiratory failure secondary to combined COVID-19 and staph aureus pneumonia Plan to continue current supportive measures including invasive mechanical ventilatory support with a goal to maintain an oxygen saturation at or above 90%. The patient will be continued on remdesivir to complete treatment course, pending stability in renal and liver function. Continue daily Decadron to complete 10 days of treatment. Antibiotics will be continued per ID recommendations. Plan to continue patient on APRV mode of mechanical ventilation. Will obtain arterial blood gas this morning. Unable to diurese the patient given interval development of ALLISON. The patient will be continued on tube feeds as tolerated. 2. Probable obstructive lung disease of unclear severity Start scheduled bronchodilator therapy. Continue supportive measures as noted above. 3. Obesity/diabetes mellitus/hyperlipidemia Complicates care, management, recovery and prognosis. Continue home medications as indicated. Continue Lantus and sliding scale insulin coverage. TIME: 38 minutes of critical care time, independent of procedures, was spent addressing the patient's acute hypoxemic respiratory failure, COVID-19 pneumonia, staph aureus pneumonia, probable obstructive lung disease, review of all data and collaboration with the care team. [phone]) [phone] Critical care first hour
[2021-01-10 05:43] LABS: Differential Indicated SCAN CRITERIA MET
[2021-01-10 05:52] LABS: Partial Thromboplast Time 94.1 Seconds (24.1-36.2)
[2021-01-10 06:09] LABS: ALB/GLOB Ratio 0.5 RATIO (0.9-2.4); AST(SGOT) 23 U/L (15-37); Alanine Aminotransfer ALT/SGPT 20 U/L (16-61); Albumin, Serum 1.8 g/dL (3.2-5.0); Alkaline Phosphatase 97 U/L (45-117); Anion Gap 5 (5-15); BUN 74 mg/dL (7-18); BUN/Creat Ratio 54.8 RATIO (10-20); Calcium,Total 7.9 mg/dL (8.5-10.1); Chloride 105 mmol/L (98-107); Creatinine, Serum 1.35 mg/dL (0.70-1.30); EST Glomerular Filtration Rate 55 mL/min (>60); Est Glom Filt Rate - Afr Amer 66 mL/min (>60); Estimated Creatinine Clearance 48.82 ml/min; Globulin 3.8 g/dL (2.2-4.2); Glucose 468 mg/dL (74-106); Potassium 5.2 mmol/L (3.5-5.1); Protein, Total 5.6 g/dL (6.4-8.2); Sodium Level 143 mmol/L (136-145)
[2021-01-10] MEDS: Ipratropium/Albuterol Sulfate 3 ML AMPUL.NEB INHALATION ×3 (07:04→19:30)
[2021-01-10 07:55] LABS: Allen Test Positive; Base Excess 7 mmol/L (-2 to +2); Bicarbonate 33.1 mmol/L (22-26); Blood Gas Specimen Type ART; FI02 100; Mode BIVENT; O2 Delivery Device Adult Vent; PO2 64 mmHG (75-100); PS 5; RR 12; SITE L Radial; SO2 89 % (95-99); Total Carbon Dioxide 35 mmol/L; Vt 483; pCO2 63.9 mmHg (35-45); pH 7.32 (7.35-7.45)
--- NOTE | 2021-01-10 08:42 | CPS ---
Venous gas not billed Also not re-ran due to no critical values per venous ranges
[2021-01-10] MEDS: HEPARIN/D5w 25,000 UNITS 25,000 UNITS/250 ML IV.SOLN. 13 UNITS IV (09:30)
[2021-01-10] MEDS: Chlorhexidine 15 ML PO ×2 (11:17→20:21)
[2021-01-10] MEDS: dexAMETHasone 10 MG/ML Vial 6 MG IV (11:18)
[2021-01-10] MEDS: Senna/Docusate Sodium 1 Tablet 2 TABLET GT ×2 (11:18→20:22)
[2021-01-10] MEDS: Menthol/Lanolin/Calamine/Znox 113 GM Tube 1 APPLIC TOPICAL ×2 (11:19→20:21)
[2021-01-10] MEDS: Nystatin Powder 15gm Bottle 1 APPLIC TOPICAL ×2 (11:20→20:22)
[2021-01-10] MEDS: CHLORHEXIDINE GLUC 2% CLOTH 1 EACH TOWELETTE TOPICAL (12:10)
[2021-01-10 12:12] LABS: Partial Thromboplast Time 57.8 Seconds (24.1-36.2)
--- NOTE | 2021-01-10 13:28 | PCM.PN.ID ---
Patient Problems: Active and Suspected Problems Acute hypoxemic respiratory failure (Acute) Metabolic acidosis (Acute) Airway intubation performed without difficulty (Acute) COVID-19 (Acute) ARDS (adult respiratory distress syndrome) (Acute) Subjective: On vent, new fever - Physical Exam Vitals/I&O's: Vital Signs Temp Pulse Resp BP Pulse Ox 100.1 F H 113 H 49 H 148/64 H 94 01/10/21 12:00 01/10/21 13:21 01/10/21 13:21 01/10/21 12:00 01/10/21 13:21 Oxygen Flow Rate (L/min) 4 Oxygen Delivery Method Mechanical Ventilator Weight: 115.9 kg Body Mass Index (BMI) 35.4 Intake and Output for Last 24 Hours 01/08/21 01/09/21 01/10/21 23:59 23:59 23:59 Intake Total 3281.00 / 3398.32 4027.39 / 4139.89 1110.54 / 1110.54 Output Total 3570 / 3795 2125 / 2250 900 / 900 Balance -289.00 / -396.68 1902.39 / 1889.89 210.54 / 210.54 General: Non-Cooperative Lungs: Diminished Cardiovascular: Regular rate, Regular Rhythm Abdomen: Soft, Non Tender, Non-Distended Skin: No rashes Microbiology Past 72 Hours 01/04/21 14:45 Blood Culture (Wb) - Chest Blood Culture - Final No growth in 5 days. 01/04/21 14:05 Blood Culture (Wb) - Anticubital Left Blood Culture - Final No growth in 5 days. Laboratory Results 01/09/21 17:40: POC Glucose 369 H 01/10/21 00:36: POC Glucose 454 H* 01/10/21 05:30: WBC 11.6 H, RBC 4.66, Hgb 13.9, Hct 45.6, MCV 97.9 H, MCH 29.8, MCHC 30.5 L, RDW Std Deviation 55.3 H, RDW Coeff of Paul 15.3 H, Plt Count 178, MPV 10.8, Immature Gran % (Auto) 4.600 H, Neut % (Auto) 82.3 H, Lymph % (Auto) 3.3 L, Barren % (Auto) 9.1, Eos % (Auto) 0.0, Baso % (Auto) 0.7, Absolute Neuts (auto) 9.5 H, Absolute Lymphs (auto) 0.38 L, Nucleated RBC % 0.5 01/10/21 05:30: APTT 94.1 H* 01/10/21 05:30: Sodium 143, Potassium 5.2 H, Chloride 105, Carbon Dioxide 33.0 H, Anion Gap 5, BUN 74 H, Creatinine 1.35 H, Estim Creat Clear Calc 48.82, Est GFR (MDRD) Af Amer 66, Est GFR (MDRD) Non-Af 55 L, BUN/Creatinine Ratio 54.8 H, Glucose 468 H*, Calcium 7.9 L, Total Bilirubin 1.00, AST 23, ALT 20, Alkaline Phosphatase 97, Total Protein 5.6 L, Albumin 1.8 L, Globulin 3.8, Albumin/Globulin Ratio 0.5 L 01/10/21 05:30: POC Glucose 432 H 01/10/21 07:32: Specimen Type NORMA, Sample Site L Radial, VBG pH 7.31 L, VBG pO2 46 H, VBG HCO3 34 H, VBG Total CO2 36 H, VBG O2 Sat (Calc) 76 H, VBG Base Excess 8 H, POC Mix VBG pCO2 Pt Tmp 68.2 H, O2 Delivery Device Adult Vent, POC Pressure Suppt 5 01/10/21 07:48: Specimen Type ART, Sample Site L Radial, pH 7.32 L, Bicarbonate Actual 33.1 H, Total CO2 35, Base Excess 7 H, O2 Saturation 89 L, O2 % 100, ABG pCO2 63.9 H, ABG pO2 64 L, Fran Test Positive, Respiration Rate 12, O2 Delivery Device Adult Vent, Vent Mode BIVENT, Tidal Volume 483, POC Pressure Suppt 5 01/10/21 11:55: APTT 57.8 H Current Medications Acetaminophen (Acetaminophen 325 Mg Tablet) 650 mg PO Q6H PRN PRN PRN Reason: Pain Score 1-10/Temp > 100.7 F Last Admin: 01/10/21 05:17 Dose: 650 mg Documented by: Albuterol/Ipratropium (Ipratropium/Albuterol Sulfate 3 Ml Ampul.Neb) 3 ml INHALATION Q6H.RT SIMONE Last Admin: 01/10/21 13:19 Dose: 3 ml Documented by: Calamine/Phenol (Menthol/Lanolin/Calamine/Znox 113 Gm Tube) 1 applic TOPICAL BID [facility]; Protocol Last Admin: 01/10/21 11:19 Dose: 1 applicatio Documented by: Chlorhexidine Gluconate (Chlorhexidine 15 Ml) 15 ml PO BID [facility] Last Admin: 01/10/21 11:17 Dose: 15 ml Documented by: Chlorhexidine Gluconate (Chlorhexidine Gluc 2% Cloth 1 Each Towelette) 1 each TOPICAL DAILY [facility] Last Admin: 01/10/21 12:10 Dose: 1 each Documented by: Dexamethasone Sodium Phosphate (Dexamethasone 10 Mg/Ml Vial) 6 mg IV DAILY [facility] Stop: 01/13/21 10:01 Last Admin: 01/10/21 11:18 Dose: 6 mg Documented by: Dextrose (Dextrose 50%-Water 25 Gm/50 Ml Disp.Syrin) 0 gm IV X1 PRN; Protocol PRN Reason: Hypoglycemia Glucagon (Glucagon 1 Mg/Ml Syringe) 1 mg IM .X1 PRN PRN Reason: Hypoglycemia Heparin Sodium (Porcine) (Heparin Injection (Vial) 5,000 Unit/Ml Vial) 0 unit IV UD PRN; Protocol PRN Reason: dose adjustment Last Admin: 01/08/21 11:28 Dose: 1,000 unit Documented by: Fentanyl Citrate 1,000 mcg/ (Sodium Chloride) 100 mls @ 5 mls/hr CONT INF .Q20H [facility]; Protocol Last Admin: 01/10/21 12:20 Dose: 100 mcg/hr, 10 mls/hr Documented by: Heparin Sodium/Dextrose () 25,000 units in 250 mls @ 15 mls/hr IV .[id number] [facility]; Protocol Last Titration: 01/10/21 12:23 Dose: 1,300 units/hr, 13 mls/hr Documented by: Propofol (Diprivan) 1,000 mg in 100 mls @ 6.954 mls/hr CONT INF .Q12H [facility]; Protocol Last Titration: 01/10/21 12:15 Dose: 15 mcg/kg/min, 10.4 mls/hr Documented by: Enteral Nutritional Formula (Vital High Protein) 1,000 mls @ 70 mls/hr GT .[id number] [facility] Last Admin: 01/10/21 01:56 Dose: 70 mls/hr Documented by: Cefazolin Sodium 2 gm/ Sodium (Chloride) 110 mls @ 150 mls/hr IV Q8 [facility] Last Infusion: 01/10/21 06:02 Dose: Infused Documented by: Pantoprazole Sodium 40 mg/ (Sodium Chloride) 110 mls @ 330 mls/hr IV Q12 [facility] Last Infusion: 01/10/21 12:39 Dose: Infused Documented by: Insulin Glargine (Insulin Glargine 100 Units/Ml Pen) 25 units SC BID [facility] Last Admin: 01/10/21 11:16 Dose: 25 u Documented by: Insulin Human Lispro (Insulin Lispro 100 Unit/Ml Insuln.Pen) 0 unit SC Q6 [facility]; Protocol Last Admin: 01/10/21 11:29 Dose: 18 u Documented by: Nystatin (Nystatin Powder 15gm Bottle) 1 applic TOPICAL BID [facility]; Protocol Last Admin: 01/10/21 11:20 Dose: 1 applicatio Documented by: Polyethylene Glycol (Polyethylene Glycol 3350 17 Gm Packet) 17 gm GT DAILY [facility] Last Admin: 01/10/21 10:19 Dose: Not Given Documented by: Senna/Docusate Sodium (Senna/Docusate Sodium 1 Tablet) 2 tablet GT BID [facility] Last Admin: 01/10/21 11:18 Dose: 2 tablet Documented by: Sodium Chloride (0.9% Saline Lock 10 Ml Syringe) 10 - 40 ml IV UD PRN PRN Reason: SALINE FLUSH Last Admin: 01/09/21 08:15 Dose: 40 ml Documented by: Medical Necessity - Tobacco Use Smoking Status: Former smoker Tobacco Use: Cigarettes Route of nutrition/ use of supplements: [] Nutritional Intake: [] IV Site: [] Abdi Catheter: [] - Assessment/Plan Antibiotics: [] Assessment/Plan: [] Active and Suspected Problems Acute hypoxemic respiratory failure (Acute) Metabolic acidosis (Acute) Airway intubation performed without difficulty (Acute) COVID-19 (Acute) ARDS (adult respiratory distress syndrome) (Acute) covid with hypoxia and resp failure - on dex, hep gtt. Completed remdesivir. Sx started 12/26/20 reportedly. Sputum with mssa, on cefazolin. Now with fever, will check sputum cx, bcx, BNP, PCT. Family having goals of care discussions, now dnr-cca. Will follow
[2021-01-10 14:59] LABS: BNP,B-Type NATRIURETIC PEPTIDE 54.2 pg/mL (0-100)
[2021-01-10 15:07] LABS: Procalcitonin 3.53 ng/mL (0.00-0.09)
[2021-01-10 16:40] LABS: Bedside Glucose 460 mg/dL (70-110)
--- NOTE | 2021-01-10 16:43 | PCM.PROGNOTE ---
Patient Problems: Active and Suspected Problems Acute hypoxemic respiratory failure (Acute) Metabolic acidosis (Acute) Airway intubation performed without difficulty (Acute) COVID-19 (Acute) ARDS (adult respiratory distress syndrome) (Acute) Subjective: Patient was seen and examined today, he remains sedated and on the ventilator, there is been no noticeable improvement in his respiratory status since yesterday. Patient remains on airway pressure release ventilation mode with an FiO2 of 1. Objective: General: - - Patient is sedated and on the ventilator HEENT: Atraumatic, PERRLA, Normocephalic Oral: Moist Mucosa Neck: Supple, No JVD, No Nuchal Rigidity, Trachea Midline, Thyroid Normal Size and Texture Lungs: Clear to auscultation, Normal air movement, No rhonchi, No wheeze, No rales Cardiovascular: Regular rate, Regular Rhythm, Normal S1, Normal S2, No murmurs, No Ectopic Activity, PMI Normal, No rub noted, No Gallop Abdomen: Bowel Sounds Present, Soft, Non Tender, Non-Distended Extremities: No clubbing, No cyanosis, Capillary Refill Less than 3 Seconds, Edema - Mild pretibial edema is noted bilaterally Skin: No rashes, No breakdown Musculoskeletal: No swelling of any joints are noted on examination Neurological: - - Patient is sedated and on the ventilator - Physical Exam Vitals/I&O's: Vital Signs Temp Pulse Resp BP Pulse Ox 100.1 F H 117 H 28 H 168/72 H 95 01/10/21 12:00 01/10/21 16:29 01/10/21 16:29 01/10/21 15:00 01/10/21 16:29 Oxygen Flow Rate (L/min) 4 Oxygen Delivery Method Mechanical Ventilator Weight: 115.9 kg Body Mass Index (BMI) 35.4 Intake and Output for Last 24 Hours 01/08/21 01/09/21 01/10/21 23:59 23:59 23:59 Intake Total 3281.00 / 3398.32 4027.39 / 4139.89 1306.57 / 1306.57 Output Total 3570 / 3795 2125 / 2250 900 / 900 Balance -289.00 / -396.68 1902.39 / 1889.89 406.57 / 406.57 Microbiology Past 72 Hours 01/04/21 14:45 Blood Culture (Wb) - Chest Blood Culture - Final No growth in 5 days. 01/04/21 14:05 Blood Culture (Wb) - Anticubital Left Blood Culture - Final No growth in 5 days. Laboratory Results 01/09/21 17:40: POC Glucose 369 H 01/10/21 00:36: POC Glucose 454 H* 01/10/21 05:30: WBC 11.6 H, RBC 4.66, Hgb 13.9, Hct 45.6, MCV 97.9 H, MCH 29.8, MCHC 30.5 L, RDW Std Deviation 55.3 H, RDW Coeff of Apul 15.3 H, Plt Count 178, MPV 10.8, Immature Gran % (Auto) 4.600 H, Neut % (Auto) 82.3 H, Lymph % (Auto) 3.3 L, [place] % (Auto) 9.1, Eos % (Auto) 0.0, Baso % (Auto) 0.7, Absolute Neuts (auto) 9.5 H, Absolute Lymphs (auto) 0.38 L, Nucleated RBC % 0.5 01/10/21 05:30: APTT 94.1 H* 01/10/21 05:30: Sodium 143, Potassium 5.2 H, Chloride 105, Carbon Dioxide 33.0 H, Anion Gap 5, BUN 74 H, Creatinine 1.35 H, Estim Creat Clear Calc 48.82, Est GFR (MDRD) Af Amer 66, Est GFR (MDRD) Non-Af 55 L, BUN/Creatinine Ratio 54.8 H, Glucose 468 H*, Calcium 7.9 L, Total Bilirubin 1.00, AST 23, ALT 20, Alkaline Phosphatase 97, Total Protein 5.6 L, Albumin 1.8 L, Globulin 3.8, Albumin/Globulin Ratio 0.5 L 01/10/21 05:30: POC Glucose 432 H 01/10/21 07:32: Specimen Type Cancelled, Sample Site Cancelled, O2 % Cancelled, VBG pH Cancelled, VBG pH (Temp Correct) Cancelled, VBG pCO2 (Temp Corrct Cancelled, VBG pO2 Cancelled, VBG HCO3 Cancelled, VBG Total CO2 Cancelled, VBG O2 Sat (Calc) Cancelled, VBG Base Excess Cancelled, POC Mix VBG pCO2 Pt Tmp Cancelled, Respiration Rate Cancelled, O2 Delivery Device Cancelled, Liter Flow Cancelled, Minute Volume Cancelled, Inspiratory Time Cancelled, Expiratory Time Cancelled, Tidal Volume Cancelled, Mean Airway Pressure Cancelled, POC PEEP Cancelled, Peak Inspir Pressure Cancelled, POC Pressure Suppt Cancelled, Pressure Control Cancelled, EPAP Cancelled, IPAP Cancelled, Blood Gas Comments Cancelled, Crit Call To/Read Back Cancelled, Blood Gas Notified Whom Cancelled, Blood Gas Notified Time Cancelled, Clinical Comments Cancelled 01/10/21 07:48: Specimen Type ART, Sample Site L Radial, pH 7.32 L, Bicarbonate Actual 33.1 H, Total CO2 35, Base Excess 7 H, O2 Saturation 89 L, O2 % 100, ABG pCO2 63.9 H, ABG pO2 64 L, Fran Test Positive, Respiration Rate 12, O2 Delivery Device Adult Vent, Vent Mode BIVENT, Tidal Volume 483, POC Pressure Suppt 5 01/10/21 11:14: POC Glucose 460 H* 01/10/21 11:55: APTT 57.8 H 01/10/21 13:50: B-Natriuretic Peptide 54.2 01/10/21 13:50: Procalcitonin 3.53 H Current Medications Acetaminophen (Acetaminophen 325 Mg Tablet) 650 mg PO Q6H PRN PRN PRN Reason: Pain Score 1-10/Temp > 100.7 F Last Admin: 01/10/21 05:17 Dose: 650 mg Documented by: Albuterol/Ipratropium (Ipratropium/Albuterol Sulfate 3 Ml Ampul.Neb) 3 ml INHALATION Q6H.RT SIMONE Last Admin: 01/10/21 13:19 Dose: 3 ml Documented by: Calamine/Phenol (Menthol/Lanolin/Calamine/Znox 113 Gm Tube) 1 applic TOPICAL BID [facility]; Protocol Last Admin: 01/10/21 11:19 Dose: 1 applicatio Documented by: Chlorhexidine Gluconate (Chlorhexidine 15 Ml) 15 ml PO BID [facility] Last Admin: 01/10/21 11:17 Dose: 15 ml Documented by: Chlorhexidine Gluconate (Chlorhexidine Gluc 2% Cloth 1 Each Towelette) 1 each TOPICAL DAILY [facility] Last Admin: 01/10/21 12:10 Dose: 1 each Documented by: Dexamethasone Sodium Phosphate (Dexamethasone 10 Mg/Ml Vial) 6 mg IV DAILY [facility] Stop: 01/13/21 10:01 Last Admin: 01/10/21 11:18 Dose: 6 mg Documented by: Dextrose (Dextrose 50%-Water 25 Gm/50 Ml Disp.Syrin) 0 gm IV X1 PRN; Protocol PRN Reason: Hypoglycemia Glucagon (Glucagon 1 Mg/Ml Syringe) 1 mg IM .X1 PRN PRN Reason: Hypoglycemia Heparin Sodium (Porcine) (Heparin Injection (Vial) 5,000 Unit/Ml Vial) 0 unit IV UD PRN; Protocol PRN Reason: dose adjustment Last Admin: 01/08/21 11:28 Dose: 1,000 unit Documented by: Fentanyl Citrate 1,000 mcg/ (Sodium Chloride) 100 mls @ 5 mls/hr CONT INF .Q20H [facility]; Protocol Last Titration: 01/10/21 15:00 Dose: 75 mcg/hr, 7.5 mls/hr Documented by: Heparin Sodium/Dextrose () 25,000 units in 250 mls @ 15 mls/hr IV .[id number] [facility]; Protocol Last Titration: 01/10/21 15:00 Dose: 1,300 units/hr, 13 mls/hr Documented by: Propofol (Diprivan) 1,000 mg in 100 mls @ 6.954 mls/hr CONT INF .Q12H [facility]; Protocol Last Titration: 01/10/21 15:45 Dose: 5 mcg/kg/min, 3.5 mls/hr Documented by: Enteral Nutritional Formula (Vital High Protein) 1,000 mls @ 70 mls/hr GT .[id number] [facility] Last Admin: 01/10/21 01:56 Dose: 70 mls/hr Documented by: Cefazolin Sodium 2 gm/ Sodium (Chloride) 110 mls @ 150 mls/hr IV Q8 [facility] Last Infusion: 01/10/21 15:10 Dose: Infused Documented by: Pantoprazole Sodium 40 mg/ (Sodium Chloride) 110 mls @ 330 mls/hr IV Q12 [facility] Last Infusion: 01/10/21 12:39 Dose: Infused Documented by: Insulin Glargine (Insulin Glargine 100 Units/Ml Pen) 25 units SC BID [facility] Last Admin: 01/10/21 11:16 Dose: 25 u Documented by: Insulin Human Lispro (Insulin Lispro 100 Unit/Ml Insuln.Pen) 0 unit SC Q6 [facility]; Protocol Last Admin: 01/10/21 11:29 Dose: 18 u Documented by: Nystatin (Nystatin Powder 15gm Bottle) 1 applic TOPICAL BID [facility]; Protocol Last Admin: 01/10/21 11:20 Dose: 1 applicatio Documented by: Polyethylene Glycol (Polyethylene Glycol 3350 17 Gm Packet) 17 gm GT DAILY [facility] Last Admin: 01/10/21 10:19 Dose: Not Given Documented by: Senna/Docusate Sodium (Senna/Docusate Sodium 1 Tablet) 2 tablet GT BID [facility] Last Admin: 01/10/21 11:18 Dose: 2 tablet Documented by: Sodium Chloride (0.9% Saline Lock 10 Ml Syringe) 10 - 40 ml IV UD PRN PRN Reason: SALINE FLUSH Last Admin: 01/09/21 08:15 Dose: 40 ml Documented by: Medical Necessity - Tobacco Use Smoking Status: Former smoker Tobacco Use: Cigarettes Assessment/Plan All Active Problems Acute hypoxemic respiratory failure (Acute) Metabolic acidosis (Acute) Airway intubation performed without difficulty (Acute) COVID-19 (Acute) ARDS (adult respiratory distress syndrome) (Acute) #1 acute hypoxic respiratory failure secondary to COVID-19 pneumonia and methicillin sensitive staph aureus pneumonia-continue present treatment per critical care medicine, patient's prognosis extremely guarded at this point, continue Decadron, patient finished his remdesivir course #2 type 2 diabetes-continue to monitor blood sugars, basal insulin will be increased #3 hyperlipidemia #4 Methicillin sensitive staph aureus pneumonia-infectious diseases is participating in the patient's care #5 acute kidney injury-labs will be monitored Inpatient E&M: [id number] [facility] Hosp L2
[2021-01-10 18:20] LABS: Bedside Glucose 418 mg/dL (70-110)
[2021-01-10 18:30] LABS: Partial Thromboplast Time 41.3 Seconds (24.1-36.2)
[2021-01-10] MEDS: Heparin Injection (Vial) 5,000 UNIT/ML VIAL IV (18:38)
[2021-01-10 21:11] LABS: Bedside Glucose 391 mg/dL (70-110)
[2021-01-11] VITALS (30 sets, daily range): BP systolic 74–149; BP diastolic 42–66; PULSE 11–113; RESP 12–52; TEMP 37.7–38.5; O2SAT 54–100
[2021-01-11] MEDS: Insulin Lispro 100 UNIT/ML INSULN.PEN SC ×3 (00:58→12:13)
[2021-01-11 01:13] LABS: Partial Thromboplast Time 48.9 Seconds (24.1-36.2)
[2021-01-11] MEDS: Ipratropium/Albuterol Sulfate 3 ML AMPUL.NEB INHALATION ×3 (01:15→13:21)
[2021-01-11 01:16] LABS: Bedside Glucose 451 mg/dL (70-110)
[2021-01-11] MEDS: Heparin Injection (Vial) 5,000 UNIT/ML VIAL IV (01:26)
[2021-01-11] MEDS: HEPARIN/D5w 25,000 UNITS 25,000 UNITS/250 ML IV.SOLN. 15 UNITS IV (05:30)
--- NOTE | 2021-01-11 05:37 | PCM.PN.INT ---
Subjective: The patient was seen and examined at the bedside this morning. Events from the last 24 hours have been reviewed. The patient currently has a low-grade fever and remains tachycardic and tachypneic. He remains on APRV mode of mechanical ventilation with an FiO2 requirement of 100%. All of the patient's sedatives were discontinued overnight and the patient still remains nonresponsive this morning. The patient is currently documented to be overall net +6.1 L for the hospital admission. He has completed his treatment course of remdesivir and remains on Decadron, antimicrobials and a continuous heparin infusion. Unfortunately, the patient's renal function continues to decline and the patient is now uremic with an elevated ammonia level. I did call and personally speak with the patient's , Janie, this morning and explained my concerns over the patient's declining renal function and his encephalopathy, which is likely metabolic in nature. She is not sure that she wishes to proceed with a nephrology consultation, as she is not sure that she would want to pursue dialysis. She is going to speak with her daughter about this issue further. Objective: The patient's most recent lab work, culture data and imaging studies have all been personally reviewed. Rapid coronavirus antigen testing was positive on January 04. Sputum culture was positive for staph aureus. General: - - The patient remains intubated and mechanically ventilated. HEENT: Atraumatic, Normocephalic Oral: No Gingival or Mucosal Lesions/ Ulcerations, - - Stable endotracheal and OG tubes. Neck: Supple, No Nodes, Trachea Midline Lungs: Diminished, Tachypneic Cardiovascular: Normal S1, Normal S2, No murmurs, Tachycardic Abdomen: Bowel Sounds Present, Soft, Non Tender Extremities: No clubbing, No cyanosis, Edema Skin: - - No significant change from previous Musculoskeletal: No Tenderness to Palpation of Joints or Extremities Lymphatic: No Cervical, Supraclavicular, or Inguinal Adenopathy Neurological: - - The patient is unresponsive to noxious and verbal stimuli. RASS noted to be -4. No sedation. Vital Signs Temp Pulse Resp BP Pulse Ox 100.8 F H 109 H 30 H 134/61 H 93 01/11/21 04:00 01/11/21 05:00 01/11/21 05:00 01/11/21 05:00 01/11/21 05:00 Oxygen Flow Rate (L/min) 4 Oxygen Delivery Method Mechanical Ventilator Weight: 255 lb 8.252 oz Body Mass Index (BMI) 35.4 Intake and Output for Last 24 Hours 01/09/21 01/10/21 01/11/21 23:59 23:59 23:59 Intake Total 4027.39 / 4139.89 1986.34 / 2345.34 497.44 / 497.44 Output Total 2124 / 0 1824 / 1974 150 / 150 Balance 1902.39 / 1889.89 161.34 / 370.34 347.44 / 347.44 Labs (Last 48 Hours) 01/09/21 01/09/21 01/10/21 12:57 17:40 00:36 WBC RBC Hgb Hct MCV MCH MCHC RDW Std Deviation RDW Coeff of Paul Plt Count MPV Immature Gran % (Auto) Neut % (Auto) Lymph % (Auto) [place] % (Auto) Eos % (Auto) Baso % (Auto) Absolute Neuts (auto) Absolute Lymphs (auto) Nucleated RBC % APTT Specimen Type Sample Site pH Bicarbonate Actual Total CO2 Base Excess O2 Saturation O2 % ABG pCO2 ABG pO2 Fran Test VBG pH VBG pH (Temp Correct) VBG pCO2 (Temp Corrct VBG pO2 VBG HCO3 VBG Total CO2 VBG O2 Sat (Calc) VBG Base Excess POC Mix VBG pCO2 Pt Tmp Respiration Rate O2 Delivery Device Liter Flow Minute Volume Vent Mode Inspiratory Time Expiratory Time Tidal Volume Mean Airway Pressure POC PEEP Peak Inspir Pressure POC Pressure Suppt Pressure Control EPAP IPAP Blood Gas Comments Crit Call To/Read Back Blood Gas Notified Whom Blood Gas Notified Time Clinical Comments Sodium Potassium Chloride Carbon Dioxide Anion Gap BUN Creatinine Estim Creat Clear Calc Est GFR (MDRD) Af Amer Est GFR (MDRD) Non-Af BUN/Creatinine Ratio Glucose Calcium Total Bilirubin AST ALT Alkaline Phosphatase B-Natriuretic Peptide Total Protein Albumin Globulin Albumin/Globulin Ratio Procalcitonin POC Glucose 329 H 369 H 454 H* 01/10/21 01/10/21 01/10/21 05:30 05:30 05:30 WBC 11.6 H RBC 4.66 Hgb 13.9 Hct 45.6 MCV 97.9 H MCH 29.8 MCHC 30.5 L RDW Std Deviation 55.3 H RDW Coeff of Paul 15.3 H Plt Count 178 MPV 10.8 Immature Gran % (Auto) 4.600 H Neut % (Auto) 82.3 H Lymph % (Auto) 3.3 L [place] % (Auto) 9.1 Eos % (Auto) 0.0 Baso % (Auto) 0.7 Absolute Neuts (auto) 9.5 H Absolute Lymphs (auto) 0.38 L Nucleated RBC % 0.5 APTT 94.1 H* Specimen Type Sample Site pH Bicarbonate Actual Total CO2 Base Excess O2 Saturation O2 % ABG pCO2 ABG pO2 Fran Test VBG pH VBG pH (Temp Correct) VBG pCO2 (Temp Corrct VBG pO2 VBG HCO3 VBG Total CO2 VBG O2 Sat (Calc) VBG Base Excess POC Mix VBG pCO2 Pt Tmp Respiration Rate O2 Delivery Device Liter Flow Minute Volume Vent Mode Inspiratory Time Expiratory Time Tidal Volume Mean Airway Pressure POC PEEP Peak Inspir Pressure POC Pressure Suppt Pressure Control EPAP IPAP Blood Gas Comments Crit Call To/Read Back Blood Gas Notified Whom Blood Gas Notified Time Clinical Comments Sodium 143 Potassium 5.2 H Chloride 105 Carbon Dioxide 33.0 H Anion Gap 5 BUN 74 H Creatinine 1.35 H Estim Creat Clear Calc 48.82 Est GFR (MDRD) Af Amer 66 Est GFR (MDRD) Non-Af 55 L BUN/Creatinine Ratio 54.8 H Glucose 468 H* Calcium 7.9 L Total Bilirubin 1.00 AST 23 ALT 20 Alkaline Phosphatase 97 B-Natriuretic Peptide Total Protein 5.6 L Albumin 1.8 L Globulin 3.8 Albumin/Globulin Ratio 0.5 L Procalcitonin POC Glucose 01/10/21 01/10/21 01/10/21 05:30 07:32 07:48 WBC RBC Hgb Hct MCV MCH MCHC RDW Std Deviation RDW Coeff of Paul Plt Count MPV Immature Gran % (Auto) Neut % (Auto) Lymph % (Auto) [place] % (Auto) Eos % (Auto) Baso % (Auto) Absolute Neuts (auto) Absolute Lymphs (auto) Nucleated RBC % APTT Specimen Type Cancelled ART Sample Site Cancelled L Radial pH 7.32 L Bicarbonate Actual 33.1 H Total CO2 35 Base Excess 7 H O2 Saturation 89 L O2 % Cancelled 100 ABG pCO2 63.9 H ABG pO2 64 L Fran Test Positive VBG pH Cancelled VBG pH (Temp Correct) Cancelled VBG pCO2 (Temp Corrct Cancelled VBG pO2 Cancelled VBG HCO3 Cancelled VBG Total CO2 Cancelled VBG O2 Sat (Calc) Cancelled VBG Base Excess Cancelled POC Mix VBG pCO2 Pt Tmp Cancelled Respiration Rate Cancelled 12 O2 Delivery Device Cancelled Adult Vent Liter Flow Cancelled Minute Volume Cancelled Vent Mode BIVENT Inspiratory Time Cancelled Expiratory Time Cancelled Tidal Volume Cancelled 483 Mean Airway Pressure Cancelled POC PEEP Cancelled Peak Inspir Pressure Cancelled POC Pressure Suppt Cancelled 5 Pressure Control Cancelled EPAP Cancelled IPAP Cancelled Blood Gas Comments Cancelled Crit Call To/Read Back Cancelled Blood Gas Notified Whom Cancelled Blood Gas Notified Time Cancelled Clinical Comments Cancelled Sodium Potassium Chloride Carbon Dioxide Anion Gap BUN Creatinine Estim Creat Clear Calc Est GFR (MDRD) Af Amer Est GFR (MDRD) Non-Af BUN/Creatinine Ratio Glucose Calcium Total Bilirubin AST ALT Alkaline Phosphatase B-Natriuretic Peptide Total Protein Albumin Globulin Albumin/Globulin Ratio Procalcitonin POC Glucose 432 H 01/10/21 01/10/21 01/10/21 11:14 11:55 13:50 WBC RBC Hgb Hct MCV MCH MCHC RDW Std Deviation RDW Coeff of Paul Plt Count MPV Immature Gran % (Auto) Neut % (Auto) Lymph % (Auto) [place] % (Auto) Eos % (Auto) Baso % (Auto) Absolute Neuts (auto) Absolute Lymphs (auto) Nucleated RBC % APTT 57.8 H Specimen Type Sample Site pH Bicarbonate Actual Total CO2 Base Excess O2 Saturation O2 % ABG pCO2 ABG pO2 Fran Test VBG pH VBG pH (Temp Correct) VBG pCO2 (Temp Corrct VBG pO2 VBG HCO3 VBG Total CO2 VBG O2 Sat (Calc) VBG Base Excess POC Mix VBG pCO2 Pt Tmp Respiration Rate O2 Delivery Device Liter Flow Minute Volume Vent Mode Inspiratory Time Expiratory Time Tidal Volume Mean Airway Pressure POC PEEP Peak Inspir Pressure POC Pressure Suppt Pressure Control EPAP IPAP Blood Gas Comments Crit Call To/Read Back Blood Gas Notified Whom Blood Gas Notified Time Clinical Comments Sodium Potassium Chloride Carbon Dioxide Anion Gap BUN Creatinine Estim Creat Clear Calc Est GFR (MDRD) Af Amer Est GFR (MDRD) Non-Af BUN/Creatinine Ratio Glucose Calcium Total Bilirubin AST ALT Alkaline Phosphatase B-Natriuretic Peptide 54.2 Total Protein Albumin Globulin Albumin/Globulin Ratio Procalcitonin POC Glucose 460 H* 01/10/21 01/10/21 01/10/21 13:50 17:40 18:10 WBC RBC Hgb Hct MCV MCH MCHC RDW Std Deviation RDW Coeff of Paul Plt Count MPV Immature Gran % (Auto) Neut % (Auto) Lymph % (Auto) [place] % (Auto) Eos % (Auto) Baso % (Auto) Absolute Neuts (auto) Absolute Lymphs (auto) Nucleated RBC % APTT 41.3 H Specimen Type Sample Site pH Bicarbonate Actual Total CO2 Base Excess O2 Saturation O2 % ABG pCO2 ABG pO2 Fran Test VBG pH VBG pH (Temp Correct) VBG pCO2 (Temp Corrct VBG pO2 VBG HCO3 VBG Total CO2 VBG O2 Sat (Calc) VBG Base Excess POC Mix VBG pCO2 Pt Tmp Respiration Rate O2 Delivery Device Liter Flow Minute Volume Vent Mode Inspiratory Time Expiratory Time Tidal Volume Mean Airway Pressure POC PEEP Peak Inspir Pressure POC Pressure Suppt Pressure Control EPAP IPAP Blood Gas Comments Crit Call To/Read Back Blood Gas Notified Whom Blood Gas Notified Time Clinical Comments Sodium Potassium Chloride Carbon Dioxide Anion Gap BUN Creatinine Estim Creat Clear Calc Est GFR (MDRD) Af Amer Est GFR (MDRD) Non-Af BUN/Creatinine Ratio Glucose Calcium Total Bilirubin AST ALT Alkaline Phosphatase B-Natriuretic Peptide Total Protein Albumin Globulin Albumin/Globulin Ratio Procalcitonin 3.53 H POC Glucose 418 H 01/10/21 01/11/21 01/11/21 20:08 00:50 00:56 WBC RBC Hgb Hct MCV MCH MCHC RDW Std Deviation RDW Coeff of Paul Plt Count MPV Immature Gran % (Auto) Neut % (Auto) Lymph % (Auto) [place] % (Auto) Eos % (Auto) Baso % (Auto) Absolute Neuts (auto) Absolute Lymphs (auto) Nucleated RBC % APTT 48.9 H Specimen Type Sample Site pH Bicarbonate Actual Total CO2 Base Excess O2 Saturation O2 % ABG pCO2 ABG pO2 Fran Test VBG pH VBG pH (Temp Correct) VBG pCO2 (Temp Corrct VBG pO2 VBG HCO3 VBG Total CO2 VBG O2 Sat (Calc) VBG Base Excess POC Mix VBG pCO2 Pt Tmp Respiration Rate O2 Delivery Device Liter Flow Minute Volume Vent Mode Inspiratory Time Expiratory Time Tidal Volume Mean Airway Pressure POC PEEP Peak Inspir Pressure POC Pressure Suppt Pressure Control EPAP IPAP Blood Gas Comments Crit Call To/Read Back Blood Gas Notified Whom Blood Gas Notified Time Clinical Comments Sodium Potassium Chloride Carbon Dioxide Anion Gap BUN Creatinine Estim Creat Clear Calc Est GFR (MDRD) Af Amer Est GFR (MDRD) Non-Af BUN/Creatinine Ratio Glucose Calcium Total Bilirubin AST ALT Alkaline Phosphatase B-Natriuretic Peptide Total Protein Albumin Globulin Albumin/Globulin Ratio Procalcitonin POC Glucose 391 H 451 H* Microbiology 01/04/21 14:45 Blood Culture (Wb) - Chest Blood Culture - Final No growth in 5 days. 01/04/21 14:05 Blood Culture (Wb) - Anticubital Left Blood Culture - Final No growth in 5 days. Clinical Impression(s) from Imaging Studies Chest X-Ray 01/04/21 14:45 IMPRESSION: Bilateral diffuse pulmonary infiltrates worse in the mid and lower lung regions. The tip of the endotracheal tube is at 6.3 cm proximal to the darrick. The tip of the enteric tube is in the body of the stomach. Electronically Signed: Dustin Antonio MD at 15:06 EST , Service support , Chest CTA 01/04/21 14:58 IMPRESSION: COPD and ASHD with superimposed pulmonary edema and bilateral effusions. Cannot definitively exclude coexisting Covid 19 pneumonia Limited visualization of the distal subsegmental vessels without definitive evidence for pulmonary emboli If strong clinical suspicion for pulmonary embolus DOPPLER scan of the deep venous system of lower extremities recommended Electronically Signed: Pelon Yip MD at 16:29 EST , Service support , Chest X-Ray 01/04/21 23:07 IMPRESSION: Bilateral interstitial prominence and patchy infiltrates similar to previous study. Electronically Signed: Jon Gomez DO at 0:06 EST Tel [phone], Service support , Chest X-Ray 01/08/21 09:06 IMPRESSION: Progressive bilateral pulmonary infiltrates worse in the left hemithorax. The support tubes are in good position. Electronically Signed: Dustin Antonio MD at 13:34 EST , Service support , Medical Necessity - Tobacco Use Smoking Status: Former smoker Tobacco Use: Cigarettes Assessment/Plan All Active Problems Acute hypoxemic respiratory failure (Acute) Metabolic acidosis (Acute) Airway intubation performed without difficulty (Acute) COVID-19 (Acute) ARDS (adult respiratory distress syndrome) (Acute) RECOMMENDATIONS: 1. Continue patient on APRV mode of mechanical ventilation and wean FiO2 to maintain saturations at or above 90%. 2. Continue antimicrobials per ID recommendations. 3. Continue to withhold all sedating medications. 4. Awaiting family decision with regard to nephrology consultation. 5. Continue heparin infusion as ordered. 6. Continue tube feeds as tolerated. 7. Continue appropriate GI prophylaxis. 8. Continue Decadron to complete treatment course. 9. Ongoing goals of care discussion with the patient's family. IMPRESSIONS: 1. Acute hypoxemic respiratory failure secondary to combined COVID-19 and staph aureus pneumonia Plan to continue current supportive measures including invasive mechanical ventilatory support with a goal to maintain an oxygen saturation at or above 90%. The patient will be continued on remdesivir to complete treatment course, pending stability in renal and liver function. Continue daily Decadron to complete 10 days of treatment. Antibiotics will be continued per ID recommendations. Plan to continue patient on APRV mode of mechanical ventilation. Will obtain arterial blood gas this morning. Unable to diurese the patient given interval development of ALLISON. The patient will be continued on tube feeds as tolerated. 2. Acute kidney injury Over the last 48 hours, the patient's renal function has declined and he has now become uremic. I do anticipate that the patient would likely require dialysis based on his trajectory. However, it is not clear in my discussion with the patient's family as to whether they would want to pursue this intervention. Therefore, I will hold off on consulting nephrology until the family decides. 3. Encephalopathy Likely metabolic in etiology with worsening uremia and hyperammonemia contributing. Agree with continuing to hold all sedating medications. 4. Probable obstructive lung disease of unclear severity Start scheduled bronchodilator therapy. Continue supportive measures as noted above. 5. Obesity/diabetes mellitus/hyperlipidemia Complicates care, management, recovery and prognosis. Continue home medications as indicated. Continue Lantus and sliding scale insulin coverage. TIME: 37 minutes of critical care time, independent of procedures, was spent addressing the patient's acute hypoxemic respiratory failure, COVID-19 pneumonia, staph aureus pneumonia, probable obstructive lung disease, acute kidney injury, encephalopathy, review of all data and collaboration with the care team. [phone]) [phone] Critical care first hour
[2021-01-11] MEDS: Cefazolin 2 GM in 0.9% Normal Saline 100 ML IV (05:45)
--- NOTE | 2021-01-11 05:50 | CPS ---
Critical Value: PCO2 OF 68.[address] Crook
[2021-01-11 05:51] LABS: Base Excess 9 mmol/L (-2 to +2); Bicarbonate 34.8 mmol/L (22-26); Blood Gas Specimen Type ART; FI02 100; Mode BiLevel; PEEP 0; PO2 66 mmHG (75-100); RR 12; SITE L Radial; SO2 90 % (95-99); Total Carbon Dioxide 37 mmol/L; pCO2 68.4 mmHg (35-45); pH 7.31 (7.35-7.45)
[2021-01-11 06:06] LABS: Bedside Glucose 421 mg/dL (70-110)
[2021-01-11 07:01] LABS: Hematocrit 44.9 % (40-54); Hemoglobin 13.8 g/dL (13.0-16.5); Mean Corp Hgb Conc 30.7 g/dL (32-36); Mean Corpuscular Hgb 30.1 pg (27.0-32.0); Mean Platelet Vol. 10.9 fl (6.2-12.0); POSITIVE COUNT YES; POSITIVE DIFFERENTIAL YES; POSITIVE MORPHOLOGY YES; Platelet Count 206 K/mm3 (150-450); RBC Distribution Width CV 15.6 % (11.6-14.6); RBC Distribution Width SD 55.8 fl (35.1-43.9); Red Blood Count 4.58 M/mm3 (4.6-6.2); White Blood Count 19.9 K/mm3 (4.4-11.0)
[2021-01-11 07:02] LABS: Differential Indicated MANUAL DIFF
[2021-01-11 07:16] LABS: Partial Thromboplast Time 73.7 Seconds (24.1-36.2)
[2021-01-11 07:29] LABS: Lymphocyte 6 % (19-41); Monocyte 9 % (0-10); Myelocyte 2 (0-0); Neutrophil-Band 10 % (0-5); Neutrophil-Segmented 73 % (47-70); Nucleated Red Bld Cells,Manual 1 % (0-5); Total Cells Counted 100 (MANUAL DIFF)
[2021-01-11 07:31] LABS: Absolute Lymphocyte Count 1.19 X10^3/uL (0.83-4.51); Absolute Neutrophil Count 16.7 X10^3/uL (2.0-7.7)
[2021-01-11 07:33] LABS: Platelet Estimate ADEQUATE (ADEQ); Red Cell Morphology NORM C+C NORMAL (NORM C&C)
[2021-01-11 07:51] LABS: ALB/GLOB Ratio 0.4 RATIO (0.9-2.4); AST(SGOT) 29 U/L (15-37); Alanine Aminotransfer ALT/SGPT 14 U/L (16-61); Albumin, Serum 1.7 g/dL (3.2-5.0); Alkaline Phosphatase 99 U/L (45-117); Anion Gap 4 (5-15); BUN 115 mg/dL (7-18); BUN/Creat Ratio 74.7 RATIO (10-20); Calcium,Total 8.1 mg/dL (8.5-10.1); Chloride 108 mmol/L (98-107); Creatinine, Serum 1.54 mg/dL (0.70-1.30); EST Glomerular Filtration Rate 47 mL/min (>60); Est Glom Filt Rate - Afr Amer 57 mL/min (>60); Estimated Creatinine Clearance 42.79 ml/min; Globulin 4.1 g/dL (2.2-4.2); Glucose 439 mg/dL (74-106); Potassium 5.8 mmol/L (3.5-5.1); Protein, Total 5.8 g/dL (6.4-8.2); Sodium Level 146 mmol/L (136-145)
[2021-01-11 07:53] LABS: Thyroid Stim Hormone (TSH) 0.06 uIU/mL (0.358-3.74)
[2021-01-11 08:54] LABS: T4 Free Direct 0.94 ng/dL (0.76-1.46)
[2021-01-11] MEDS: Chlorhexidine 15 ML PO (10:03)
[2021-01-11] MEDS: Nystatin Powder 15gm Bottle 1 APPLIC TOPICAL (10:04)
[2021-01-11] MEDS: Vital High Protein 1,000 ML 70 ML GT (10:04)
[2021-01-11] MEDS: Menthol/Lanolin/Calamine/Znox 113 GM Tube 1 APPLIC TOPICAL (10:04)
[2021-01-11] MEDS: dexAMETHasone 10 MG/ML Vial 6 MG IV (10:05)
--- NOTE | 2021-01-11 10:21 | PCM.PN.ID ---
Patient Problems: Active and Suspected Problems Acute hypoxemic respiratory failure (Acute) Metabolic acidosis (Acute) Airway intubation performed without difficulty (Acute) COVID-19 (Acute) ARDS (adult respiratory distress syndrome) (Acute) Subjective: On vent, still fever - Physical Exam Vitals/I&O's: Vital Signs Temp Pulse Resp BP Pulse Ox 101.1 F H 112 H 35 H 127/57 H 90 01/11/21 08:00 01/11/21 09:00 01/11/21 09:00 01/11/21 09:00 01/11/21 09:00 Oxygen Flow Rate (L/min) 4 Oxygen Delivery Method Mechanical Ventilator Weight: 116.3 kg Body Mass Index (BMI) 35.4 Intake and Output for Last 24 Hours 01/09/21 01/10/21 01/11/21 23:59 23:59 23:59 Intake Total 4027.39 / 4139.89 1986.34 / 2345.34 1054.94 / 1054.94 Output Total 2125 / 2250 1825 / 1975 650 / 650 Balance 1902.39 / 1889.89 161.34 / 370.34 404.94 / 404.94 General: No apparent distress Lungs: Diminished Cardiovascular: Regular rate, Regular Rhythm Abdomen: Soft, Non Tender, Non-Distended Skin: No rashes Microbiology Past 72 Hours 01/04/21 14:45 Blood Culture (Wb) - Chest Blood Culture - Final No growth in 5 days. 01/04/21 14:05 Blood Culture (Wb) - Anticubital Left Blood Culture - Final No growth in 5 days. Laboratory Results 01/10/21 07:32: Specimen Type Cancelled, Sample Site Cancelled, O2 % Cancelled, VBG pH Cancelled, VBG pH (Temp Correct) Cancelled, VBG pCO2 (Temp Corrct Cancelled, VBG pO2 Cancelled, VBG HCO3 Cancelled, VBG Total CO2 Cancelled, VBG O2 Sat (Calc) Cancelled, VBG Base Excess Cancelled, POC Mix VBG pCO2 Pt Tmp Cancelled, Respiration Rate Cancelled, O2 Delivery Device Cancelled, Liter Flow Cancelled, Minute Volume Cancelled, Inspiratory Time Cancelled, Expiratory Time Cancelled, Tidal Volume Cancelled, Mean Airway Pressure Cancelled, POC PEEP Cancelled, Peak Inspir Pressure Cancelled, POC Pressure Suppt Cancelled, Pressure Control Cancelled, EPAP Cancelled, IPAP Cancelled, Blood Gas Comments Cancelled, Crit Call To/Read Back Cancelled, Blood Gas Notified Whom Cancelled, Blood Gas Notified Time Cancelled, Clinical Comments Cancelled 01/10/21 11:14: POC Glucose 460 H* 01/10/21 11:55: APTT 57.8 H 01/10/21 13:50: B-Natriuretic Peptide 54.2 01/10/21 13:50: Procalcitonin 3.53 H 01/10/21 17:40: POC Glucose 418 H 01/10/21 18:10: APTT 41.3 H 01/10/21 20:08: POC Glucose 391 H 01/11/21 00:50: APTT 48.9 H 01/11/21 00:56: POC Glucose 451 H* 01/11/21 05:44: Specimen Type ART, Sample Site L Radial, pH 7.31 L, Bicarbonate Actual 34.8 H, Total CO2 37, Base Excess 9 H, O2 Saturation 90 L, O2 % 100, ABG pCO2 68.4 H*, ABG pO2 66 L, Respiration Rate 12, Vent Mode BiLevel, POC PEEP 0 01/11/21 05:44: POC Glucose 421 H 01/11/21 06:45: APTT 73.7 H 01/11/21 06:45: TSH 0.06 L 01/11/21 06:45: Ammonia 128.0 H 01/11/21 06:45: WBC 19.9 H, RBC 4.58 L, Hgb 13.8, Hct 44.9, MCV 98.0 H, MCH 30.1, MCHC 30.7 L, RDW Std Deviation 55.8 H, RDW Coeff of Paul 15.6 H, Plt Count 206, MPV 10.9, Neut % (Auto) Not Reportable, Absolute Neuts (auto) 16.7 H, Absolute Lymphs (auto) 1.19, Total Counted 100, Neutrophils % (Manual) 73 H, Band Neutrophils % 10 H, Lymphocytes % (Manual) 6 L, Monocytes % (Manual) 9, Myelocytes % 2 H, Nucleated RBCs/100 WBC 1, Diff Path Review March, Platelet Estimate ADEQUATE, RBC Morphology NORM C+C 01/11/21 06:45: Sodium 146 H, Potassium 5.8 H, Chloride 108 H, Carbon Dioxide 34.0 H, Anion Gap 4 L, BUN 115 H*, Creatinine 1.54 H, Estim Creat Clear Calc 42.79, Est GFR (MDRD) Af Amer 57 L, Est GFR (MDRD) Non-Af 47 L, BUN/Creatinine Ratio 74.7 H, Glucose 439 H, Calcium 8.1 L, Total Bilirubin 1.10 H, AST 29, ALT 14 L, Alkaline Phosphatase 99, Total Protein 5.8 L, Albumin 1.7 L, Globulin 4.1, Albumin/Globulin Ratio 0.4 L 01/11/21 06:45: Free T4 0.94 Current Medications Acetaminophen (Acetaminophen 650 Mg/20 Ml Udc) 650 mg GT Q4H PRN PRN PRN Reason: TEMP > 100.5 F Albuterol/Ipratropium (Ipratropium/Albuterol Sulfate 3 Ml Ampul.Neb) 3 ml INHALATION Q6H.RT [facility] Last Admin: 01/11/21 07:09 Dose: 3 ml Documented by: Calamine/Phenol (Menthol/Lanolin/Calamine/Znox 113 Gm Tube) 1 applic TOPICAL BID SIMONE; Protocol Last Admin: 01/11/21 10:04 Dose: 1 applicatio Documented by: Chlorhexidine Gluconate (Chlorhexidine 15 Ml) 15 ml PO BID [facility] Last Admin: 01/11/21 10:03 Dose: 15 ml Documented by: Chlorhexidine Gluconate (Chlorhexidine Gluc 2% Cloth 1 Each Towelette) 1 each TOPICAL DAILY [facility] Last Admin: 01/10/21 12:10 Dose: 1 each Documented by: Dexamethasone Sodium Phosphate (Dexamethasone 10 Mg/Ml Vial) 6 mg IV DAILY [facility] Stop: 01/13/21 10:01 Last Admin: 01/11/21 10:05 Dose: 6 mg Documented by: Dextrose (Dextrose 50%-Water 25 Gm/50 Ml Disp.Syrin) 0 gm IV X1 PRN; Protocol PRN Reason: Hypoglycemia Glucagon (Glucagon 1 Mg/Ml Syringe) 1 mg IM .X1 PRN PRN Reason: Hypoglycemia Heparin Sodium (Porcine) (Heparin Injection (Vial) 5,000 Unit/Ml Vial) 0 unit IV UD PRN; Protocol PRN Reason: dose adjustment Last Admin: 01/11/21 01:26 Dose: 1,000 unit Documented by: Fentanyl Citrate 1,000 mcg/ (Sodium Chloride) 100 mls @ 5 mls/hr CONT INF .Q20H [facility]; Protocol Last Titration: 01/11/21 04:00 Dose: Infused Documented by: Heparin Sodium/Dextrose () 25,000 units in 250 mls @ 15 mls/hr IV .[id number] [facility]; Protocol Last Titration: 01/11/21 09:00 Dose: 1,500 units/hr, 15 mls/hr Documented by: Propofol (Diprivan) 1,000 mg in 100 mls @ 6.954 mls/hr CONT INF .Q12H [facility]; Protocol Last Titration: 01/11/21 09:00 Dose: 0 mcg/kg/min, 0 mls/hr Documented by: Enteral Nutritional Formula (Vital High Protein) 1,000 mls @ 70 mls/hr GT .[id number] [facility] Last Admin: 01/11/21 10:04 Dose: 70 mls/hr Documented by: Pantoprazole Sodium 40 mg/ (Sodium Chloride) 110 mls @ 330 mls/hr IV Q12 [facility] Last Infusion: 01/10/21 20:42 Dose: Infused Documented by: Vancomycin IV Pharmacy to Dose (1 ea/ Sodium Chloride) 500 mls @ 250 mls/hr IV X1 PRN; Protocol PRN Reason: RX TO DOSE Cefepime HCl 1 gm/ Sodium (Chloride) 50 mls @ 100 mls/hr IV X1 ONE Stop: 01/11/21 10:29 Cefepime HCl 1 gm/ Sodium (Chloride) 50 mls @ 100 mls/hr IV Q12 [facility] Vancomycin HCl 2,000 mg/ (Sodium Chloride) 540 mls @ 250 mls/hr IV X1 ONE Stop: 01/11/21 12:39 Insulin Glargine (Insulin Glargine 100 Units/Ml Pen) 40 units SC BID [facility] Last Admin: 01/10/21 20:20 Dose: 40 u Documented by: Insulin Human Lispro (Insulin Lispro 100 Unit/Ml Insuln.Pen) 0 unit SC Q6 [facility]; Protocol Last Admin: 01/11/21 05:45 Dose: 16 u Documented by: Nystatin (Nystatin Powder 15gm Bottle) 1 applic TOPICAL BID [facility]; Protocol Last Admin: 01/11/21 10:04 Dose: 1 applicatio Documented by: Polyethylene Glycol (Polyethylene Glycol 3350 17 Gm Packet) 17 gm GT DAILY [facility] Last Admin: 01/11/21 09:46 Dose: Not Given Documented by: Senna/Docusate Sodium (Senna/Docusate Sodium 1 Tablet) 2 tablet GT BID SIMONE Last Admin: 01/11/21 09:46 Dose: Not Given Documented by: Sodium Chloride (0.9% Saline Lock 10 Ml Syringe) 10 - 40 ml IV UD PRN PRN Reason: SALINE FLUSH Last Admin: 01/09/21 08:15 Dose: 40 ml Documented by: Medical Necessity - Tobacco Use Smoking Status: Former smoker Tobacco Use: Cigarettes Route of nutrition/ use of supplements: [] Nutritional Intake: [] IV Site: [] Abdi Catheter: [] - Assessment/Plan Antibiotics: [] Assessment/Plan: [] Active and Suspected Problems Acute hypoxemic respiratory failure (Acute) Metabolic acidosis (Acute) Airway intubation performed without difficulty (Acute) COVID-19 (Acute) ARDS (adult respiratory distress syndrome) (Acute) covid with hypoxia and resp failure - on dex, hep gtt. Completed remdesivir. Sx started 12/26/20 reportedly. Sputum with mssa, on cefazolin. Now with fever, rising wbc, elevated PCT. Will change abx to vanc/cefepime. Now dnr-cca. Will follow
--- NOTE | 2021-01-11 10:23 | CASEMGMT ---
Social Work SW attended ICU interdisciplinary rounds. Pt Janie was on the phone during rounds and tearful throughout. Pt continues to be intubated and prognosis is poor. After rounds SW placed call to pt Janie. Emotional support provided. Janie is understanding of pt prognosis and states that she feels she is ready to let [place] go. Janie states she has been in contact with her step daughter, pt daughter, Earnestine and keeps her updated on pt condition. Janie does not feel like she can make a decision without Earnestine's consent and Earnsetine is not ready to make a decision at this time. Pt does have a second daughter but relationship is strained. Earnestine determining what information to provide to this daughter. SW reiterated to Janie that she and Earnestine may visit patient if they wish and SW requested if they come, they should contact ICU nurse to work out time. Janie is understanding of this. Janie made aware that SW will remain available should she or Earnestine have any additional questions or for support. WILBERTO Aguero
[2021-01-11] MEDS: CHLORHEXIDINE GLUC 2% CLOTH 1 EACH TOWELETTE TOPICAL (10:31)
[2021-01-11 13:08] LABS: Pathologist Review Reviewed
--- NOTE | 2021-01-11 14:52 | PCM.RX.CS ---
Consult Pharmacy has been consulted to manage selected antiobiotic: Vancomycin Type of Consult: New start Suspected Infection: Other Labs: Sodium 146 mmol/L (136-145) H 01/11/21 06:45 Potassium 5.8 mmol/L (3.5-5.1) H 01/11/21 06:45 Chloride 108 mmol/L (98-107) H 01/11/21 06:45 Carbon Dioxide 34.0 mmol/L (21.0-32.0) H 01/11/21 06:45 Anion Gap 4 (5-15) L 01/11/21 06:45 BUN 115 mg/dL (7-18) H* 01/11/21 06:45 Creatinine 1.54 mg/dL (0.70-1.30) H 01/11/21 06:45 Est GFR (MDRD) Af Amer 57 mL/min (>60) L 01/11/21 06:45 Est GFR (MDRD) Non-Af 47 mL/min (>60) L 01/11/21 06:45 BUN/Creatinine Ratio 74.7 RATIO (10-20) H 01/11/21 06:45 Glucose 439 mg/dL (74-106) H 01/11/21 06:45 Microbiology: Microbiology 01/10/21 15:50 Sputum, Induced/Lukens Gram Stain - Final 01/10/21 15:50 Sputum, Induced/Lukens Respiratory Culture - Preliminary Staphylococcus aureus 01/04/21 14:45 Blood Culture (Wb) - Chest Blood Culture - Final No growth in 5 days. 01/04/21 14:05 Blood Culture (Wb) - Anticubital Left Blood Culture - Final No growth in 5 days. 01/05/21 06:45 Sputum, Induced/Lukens Gram Stain - Final 01/05/21 06:45 Sputum, Induced/Lukens Respiratory Culture - Final Staphylococcus aureus 01/04/21 14:54 Mucosa - Nose SARS-CoV-2 Antigen (Rapid) - Final SARS-CoV-2 (COVID 19) Goal Trough: 15-20 mcg/mL Pharmacy Plan for Drug Dosing: NEW START IV VANCOMYCIN Consulting Physician:CANDELARIA Indication: Goal Trough:15-20 SrCr:1.54 CrCl:53 Comments: Vancomcyin Dose:1250MG Q12H Pending Level:01/09/21 @0000 Pharmacy Service will continue to monitor and adjust dosing as required. Follow-Up Labs: Trough Vancomycin
[2021-01-11] MEDS: LORazepam 2 MG/ML Syringe IV ×4 (17:08→20:04)
[2021-01-11] MEDS: Morphine 4 MG/ML Syringe IV (17:08)
--- NOTE | 2021-01-11 17:26 | CPS ---
family made the decision to withdraw care
[2021-01-11 17:40] LABS: Bedside Glucose 367 mg/dL (70-110)
[2021-01-11] MEDS: morphine 10 MG/ML Syringe IV ×2 (18:01→20:04)
[2021-01-11] MEDS: Atropine Sulfate 1% 2 ml Bottle 4 DRP PO ×2 (18:02→20:03)
[2021-01-11] MEDS: 0.9% Saline Lock 10 ML Syringe IV (18:17)
--- NOTE | 2021-01-11 21:14 | PCM.HOSP.N ---
Hospitalist Note Patient transitioned to DNRCC, terminal wean, passed 01/11/21 time of 2034.
--- NOTE | 2021-01-11 23:06 | NURSING ---
2034- Patient was pronounced. Verified with Michelle King RN. No heart sounds or lung sounds, No activity on the monitor, shows asystole. Family is at bedside. Dr. Gutierrez was made aware of patient's passing.
--- NOTE | 2021-01-12 18:06 | PCM.DEATH ---
Preliminary Cause of Acute hypoxic respiratory failure from COVID-19 pneumonia Date of Admission: 01/04/21 Date of : 01/11/21 - Principle Diagnosis #1 COVID-19 pneumonia #2 acute hypoxic respiratory failure secondary to COVID-19 pneumonia #3 acute renal failure secondary to COVID-19 pneumonia #4 type 2 diabetes #5 methicillin sensitive staph aureus pneumonia #6 hyperlipidemia #7 probable chronic obstructive pulmonary disease Problem List: Active and Suspected Problems Acute hypoxemic respiratory failure (Acute) Metabolic acidosis (Acute) Airway intubation performed without difficulty (Acute) COVID-19 (Acute) ARDS (adult respiratory distress syndrome) (Acute) Hospital Course 75-year-old male presented to the emergency room at [facility] with acute respiratory distress, he had been exposed to COVID-19 on December 24, 2020 and over the past several days he had shortness of breath but on 01/04/2021 it was significantly worse. Patient was noted to have oxygen saturations in the 50s on room air during triage. BiPAP was attempted but the patient's respiratory rate increased from the 40s to the 60s and he was becoming fatigued, decision was made to intubate him and chest x-ray was obtained which showed bilateral infiltrates, CTA of the chest was performed which showed no evidence of pulmonary embolism, was given Rocephin and azithromycin and Decadron. Patient's Covid test was positive. Patient's D-dimer was elevated at 7.9. Patient was admitted to the ICU and seen in consultation by pulmonary medicine, he required high oxygen and PEEP settings to oxygenate, patient's sputum sample grew out staph aureus which was methicillin sensitive. Patient continued to decline during his hospital stay in the ICU, he finally went into renal failure and a family conference was carried out and it was decided that he would not be dialyzed and that he would be terminally extubated. On 01/11/2021, patient was seen and examined:General: - - Patient is sedated and on the ventilator HEENT: Atraumatic, PERRLA, Normocephalic Oral: Moist Mucosa Neck: Supple, No JVD, No Nuchal Rigidity, Trachea Midline, Thyroid Normal Size and Texture Lungs: Clear to auscultation, Normal air movement, No rhonchi, No wheeze, No rales Cardiovascular: Regular rate, Regular Rhythm, Normal S1, Normal S2, No murmurs, No Ectopic Activity, PMI Normal, No rub noted, No Gallop Abdomen: Bowel Sounds Present, Soft, Non Tender, Non-Distended Extremities: No clubbing, No cyanosis, Capillary Refill Less than 3 Seconds, Edema - Mild pretibial edema is noted bilaterally Skin: No rashes, No breakdown Musculoskeletal: No swelling of any joints are noted on examination Neurological: - - Patient is sedated and on the ventilator On 01/11/2021, patient was terminally extubated at approximately 1800 hrs., patient was found to be pulseless and without respirations at 2034. Inpatient E&M: [id number] Disch Hosp
== END 2021-01-11 20:35 | DRG 207 ==
LOC: ED 16:11 → ICU 18:37
PROVIDERS: Internal Medicine Critical Care Medicine; Internal Medicine Infectious Disease; Admitting Provider Family Medicine; Emergency Provider Emergency Medicine; PCP Family Medicine; Visit Provider Internal Medicine
DX: U07.1 COVID-19 (principal); J12.82 Pneumonia due to coronavirus disease 2019; J15.211 Pneumonia due to Methicillin susceptible Staphylococcus aureus; J80 Acute respiratory distress syndrome; G93.41 Metabolic encephalopathy; I26.09 Other pulmonary embolism with acute cor pulmonale; J44.0 Chronic obstructive pulmonary disease with (acute) lower respiratory infection; N17.9 Acute kidney failure, unspecified; E87.2 Acidosis; D89.833 Cytokine release syndrome, grade 3; E11.9 Type 2 diabetes mellitus without complications; E78.5 Hyperlipidemia, unspecified; Z87.891 Personal history of nicotine dependence; E66.01 Morbid (severe) obesity due to excess calories; Z68.35 Body mass index [BMI] 35.0-35.9, adult; Z66 Do not resuscitate
CPT/HCPCS: 31500; 31720; 36569; 36600; 51702; 71045; 71275; 80053; 81001; 82140; 82550; 82803; 82962; 83605; 83615; 83880; 84145; 84439; 84443; 84478; 84484; 85014; 85018; 85025; 85379; 85384; 85610; 85730; 86140; 87040; 87070; 87077; 87186; 87205; 87426; 93005; 94002; 94003; 94640; 97802; 99251; 99285; J7030; J7040; J7050; Q9967; A4216; G0463; J1940; J3010